=== PATIENT | female | born 1935 | race Caucasian/White ===

== ENCOUNTER → 2016-11-07 | Outpatient (CLI) | payer MEDICARE, OTHER ==
[~2016-11-07] MED LIST: *GLUCOMETE; *MAMMOGRAM; /ALEN70TA; /CIPR75TA; /GLIM2TA; /GLIM2TA OR; /PANT40TA; /PANT40TA OR; /ROPI1TA OR; /ROPI5TA OR; ACET650S OR; ACET65TA; ACET65TA OR; ALDA25TA2 OR; AMAR1TAB; AMAR1TAB OR; AMARYL PO; ASPEC325 PO; ASPI1TAB PO; ASPI81TA83 OR; ATEN100T OR; ATENOL25 PO; ATENOLOL50 PO; ATIV0.5T; AVAP150T OR; AXID PO; BABY81CH OR; BIMATOPROST; CALCCHW12 OR; CALCIUM OR; CARV12.5 PO; CHEW500C2 PO; CHOLESTYRAMINE; CIPR500T19; CIPRO OR; CLEO300C2 PO; CORE12.5 OR; CORE12.5 PO; CORE25TA OR; CORE6.25 OR; CORE6.25 PO; COZA100T OR; CYMB1CAP5 PO; DIOV320T; DOXY100C PO; DULO30CA PO; FLAG500T; FLAG500T OR; FLUTISP; FORTEO; FOSAMAX PO; FOSAMAX70 PO; FURO20TA2; FURO20TA2 OR; GLIM1TAB OR; GLIMEPIRIDE OR; GLUCOSE TEST; HCTZ25 PO; HYDROD25 PO; INSULANT SC; ISOS30TA4 OR; ISOS30TA4 PO; KEPP500T6 PO; LANCMIS; LEVA500T; LEVE750XR PO; LIPI20TA; LISI20TA5 OR; LOPERAMIDE; LOSA25TA8 PO; MAG-TAB OR; MICRO K EXTENCAPS; MULTIVITAMIN OR; NITR0.4S; NITR0.4S SL; NITR4TASL SL; NITRODUR TOPICAL; NITROSTAT4 SL; OCEA0.654; ONGL1TAB9 PO; PLAVIX75 PO; PRAVACHOL2 PO; PRILOSEC20 PO; PRINIVIL PO; PROA1AER INH; PROT1TAB2 PO; REQU1TAB16 PO; REST0.05 OU; RESTASIS; RESTASIS OU; SPIR25TA2 OR; SUCR1SS PO; TRAM50TA2 OR; TRIC145T19; TRILIPEX; TUMS500C PO; TYLE325T5 PO; VITA200016 PO; VITA200038 PO; VITAMIN D50000 UNT OR; VITMTA PO; XALA0.002 OU; XALATAN; XALATAN EYE DROPS OU; XANA0.25 OR; ZOCOR10 PO; ZOCOR20 PO; [UNRECOGNIZED DRUG - CODE] PO; [UNRECOGNIZED DRUG - OTHER] OR; [UNRECOGNIZED DRUG - OTHER] OR; [UNRECOGNIZED DRUG - OTHER] PO; onglyza PO
== END ==
LOC: M LAB 14:23
PROVIDERS: ATTEND Internal Medicine Gastroenterology
DX: R10.13 Epigastric pain (principal); I85.00 Esophageal varices without bleeding; K57.30 Diverticulosis of large intestine without perforation or abscess without bleeding; K20.9 Esophagitis, unspecified; R74.8 Abnormal levels of other serum enzymes

== ENCOUNTER → 2016-11-07 | Outpatient (CLI) | payer MEDICARE, OTHER ==
--- NOTE | 2016-11-07 11:01 | REP ---
BILATERAL MAMMOGRAM: Bilateral mammography performed in the MLO and CC projections and compared to multiple prior exams most recent of which is 11/07/2015. There is a family history of breast cancer in sister at age 71. Breast parenchyma is predominately fatty replaced. I see no suspicious mass. There do appear to be new tiny calcifications posteriorly in the upper outer quadrant of the right breast. Other focal microcalcifications are also seen medially in the right breast but these appear to possibly be associated with skin lesions. There also appear to be tiny calcifications, new, in the central posterior left breast. Other coarse benign type calcifications are present in the left breast IMPRESSION: ACR 0 incomplete. There appear to be new tiny calcifications both medially and laterally posteriorly in the right breast and centrally in the left breast. Recommend magnification views to further evaluate. ACR 0 incomplete. BI-RADS/ACR category 0 mammogram. Incomplete: Additional imaging and/or prior images are needed before a final assessment can be assigned. This mammogram was interpreted with the aid of an FDA-approved computer-aided detection system. A. Negative x-ray reports should not delay biopsy if a dominant or clinically suspicious mass is present. B. Four to eight percent of cancers are not identified by x-ray. C. Adenosis and dense breasts may obscure an underlying neoplasm. The patient states she has not had a clinical breast exam in over a year. The patient letter being requested is M0. Signed by Sukhjinder Anders MD 11/07/2016 02:26 P
== END ==
LOC: M RAD 09:41
PROVIDERS: ATTEND Internal Medicine
DX: Z12.31 Encounter for screening mammogram for malignant neoplasm of breast (principal); E65 Localized adiposity; R92.0 Mammographic microcalcification found on diagnostic imaging of breast; R92.8 Other abnormal and inconclusive findings on diagnostic imaging of breast; Z80.3 Family history of malignant neoplasm of breast; R10.13 Epigastric pain; I85.00 Esophageal varices without bleeding; K57.30 Diverticulosis of large intestine without perforation or abscess without bleeding; K20.9 Esophagitis, unspecified; R74.8 Abnormal levels of other serum enzymes
CPT/HCPCS: 36415; 83690; G0202

== ENCOUNTER → 2016-11-09 | Outpatient (CLI) | payer MEDICARE, OTHER ==
[~2016-11-09] MED LIST changes: +GASTROGRAFIN SOLUTION 30ML (Q9963) As Ordered ONE; +ISOVUE-370 76% 100ML VIAL (Q9967) As Ordered ONE
--- NOTE | 2016-11-09 18:25 | REP ---
CT ABDOMEN: HISTORY: Pain. History of diverticulosis. COMPARISON: 04/15/2015. CONTRAST UTILIZED: 100 mL Isovue-370. The lung bases are unchanged. Chronic changes are noted status quo. The liver, gallbladder, spleen, pancreas, adrenal glands, and kidneys essentially unchanged and again seem to be within normal limits. The abdominal aorta and paraaortic regions are within normal limits for the patient's age of 81 years. No free fluid or free air is seen in the abdomen. The bowel loops and their mesenteries are within normal limits. There is no evidence of an intraabdominal mass or adenopathy. There is no significant change from the prior exam. CT PELVIS: The bowel loops and their mesenteries are within normal limits. There is no evidence of a mass or adenopathy. There is no free fluid or free air. There is no significant change from the prior exam. Bone window technique throughout the examination shows no significant change in the appearance of the osseous structures. There are age related changes status quo. IMPRESSION:No evidence of acute intraabdominal or intrapelvic disease. Findings as described above. Signed by Chaparro Cummings DO 11/09/2016 07:11 P
== END ==
LOC: M RAD 14:48
PROVIDERS: ATTEND Internal Medicine Gastroenterology
DX: R10.13 Epigastric pain (principal); I85.00 Esophageal varices without bleeding; K57.30 Diverticulosis of large intestine without perforation or abscess without bleeding; K20.9 Esophagitis, unspecified; R74.8 Abnormal levels of other serum enzymes
CPT/HCPCS: 74177; Q9963; Q9967

== ENCOUNTER → 2016-11-16 | Outpatient (CLI) | payer MEDICARE, OTHER ==
[~2016-11-16] MED LIST changes: -GASTROGRAFIN SOLUTION 30ML (Q9963) As Ordered ONE; -ISOVUE-370 76% 100ML VIAL (Q9967) As Ordered ONE
--- NOTE | 2016-11-16 15:07 | REP ---
Digital diagnostic bilateral mammography with CAD: History: Screening bilateral mammography from November 07, 2016 was BIRADS category 0 incomplete due to multiple new microcalcific grouping medially and laterally in the right breast and centrally in the left breast. Diagnostic imaging recommended. Findings: Diagnostic imaging of each breast includes magnified focal spot compression CC, MLO and true MLO views and nonmagnified views. The technologist noted multiple raised lesions in both breasts. Some of these were initially marked. After I examined the patient we attempted to elvia all of these on the suspicion that these raised seborrheic keratoses contain the calcifications we were visualizing on mammography. Multiple views were obtained and the microcalcific grouping were reproduced however, it can be seen that each of these is explained by a marked raised dermal lesion and are therefore all felt to be benign. There is a marker clip as seen previously in the left breast. No other mammographic finding. Impression: BIRADS category 2 benign bilateral mammography. Numerous raised skin lesions, some of which contain the microcalcifications, which are visualized mammographically. No suspicious abnormality. Repeat screening mammography recommended one year. BI-RADS/ACR category 2 mammogram. Benign finding(s). Routine annual screening mammography (for women over age 40). This mammogram was interpreted with the aid of an FDA-approved computer-aided detection system. The patient states that she/he has not had a clinical breast exam in over a year. The patient letter being requested is M1 . Signed by Jadiel Moncada MD 11/16/2016 05:01 P
== END ==
LOC: M RAD 12:34
PROVIDERS: ATTEND Internal Medicine
DX: R92.2 Inconclusive mammogram (principal)

== ENCOUNTER → 2016-11-22 | Outpatient (REF) | payer MEDICARE, OTHER ==
[2016-11-22 16:36] LABS: BASO % 0.4 % (0.0-1.0); EOS # 0.3 K/mm3 (0.0-0.50); EOS % 3.2 % (0.0-3.0); LARGE UNSTAINED CELL # 0.3 K/mm3 (0.0-0.4); LARGE UNSTAINED CELL % 2.8 % (0.0-4.0); LYMPH # 2.5 K/mm3 (1.5-4.5); LYMPH % 28.1 % (24.0-44.0); MEAN CORPUSCULAR HEMOGLOBIN 32.6 pg (27.0-33.0); MEAN CORPUSCULAR HGB CONC 35.1 g/dl (32.0-36.5); MONO # 0.8 K/mm3 (0.0-0.8); MONO % 8.5 % (0.0-5.0); NEUTROPHILS # 5.2 K/mm3 (1.8-7.7); NEUTROPHILS % 57.1 % (36.0-66.0); PLATELET COUNT, AUTOMATED 250 k/mm3 (150-450); RED CELL DISTRIBUTION WIDTH 12.5 % (11.5-14.5)
[2016-11-22 17:09] LABS: ERYTHROCYTE SEDIMENTATION RATE 13 mm/hr (0-30)
[2016-11-25 00:06] LABS: Lyme Disease IgG/IgM Antibodie <0.91 ISR (0.00-0.90); Lyme Disease IgM Ab Quantitati <0.80 index (0.00-0.79)
== END ==
LOC: M LABDRAW1 15:47
PROVIDERS: ATTEND Orthopaedic Surgery
DX: M17.11 Unilateral primary osteoarthritis, right knee (principal); Z79.899 Other long term (current) drug therapy

== ENCOUNTER → 2016-11-23 | Outpatient (CLI) | payer MEDICARE, OTHER ==
--- NOTE | 2016-11-23 09:48 | REP ---
NUCLEAR GASTRIC EMPTYING SCAN: Following the oral administration of 0.913 mCi of technetium-99m sulfur colloid in two scrambled egg and 4 ounces of water multiple images of the upper abdomen are performed in the anterior and posterior projections for 90 minutes. The gastric activity is measured. The gastric emptying time is calculated. At the end of 90 minutes 46% of the ingested activity has emptied from the stomach. T1/2 is 111 minutes which is slightly above normal valve of 90 minutes. IMPRESSION: Slightly delayed gastric emptying. Signed by Sukhjinder Anders MD 11/23/2016 04:36 P
== END ==
LOC: M RAD 07:22
PROVIDERS: ATTEND Internal Medicine Gastroenterology
DX: R10.13 Epigastric pain (principal)
CPT/HCPCS: 78264; A9541

== ENCOUNTER 2017-03-02 17:18 | Emergency (ER) | payer MEDICARE, OTHER ==
[~2017-03-02] VITALS: Ht 160 cm; Wt 81.8 kg
[~2017-03-02 17:18] MED LIST changes: +KEPP1TAB PO; -KEPP500T6 PO; -PROA1AER INH; +PROAAER10 INH; -XALA0.002 OU; +XALA0.007 OU
[2017-03-02] MEDS ORDERED: REGL5TAB2 PO (17:33)
[2017-03-02] MEDS ORDERED: ONDANSETRON 4MG/2ML VIAL (J2405) IV ONE (18:15)
[2017-03-02] MEDS ORDERED: ASPIRIN 81 MG CHEW TABLET PO ONE (18:15)
[2017-03-02 18:17] LABS: BASO # 0.1 K/mm3 (0.0-0.2); BASO % 0.7 % (0.0-1.0); EOS # 0.4 K/mm3 (0.0-0.50); EOS % 4.5 % (0.0-3.0); LARGE UNSTAINED CELL # 0.2 K/mm3 (0.0-0.4); LARGE UNSTAINED CELL % 2.6 % (0.0-4.0); LYMPH % 35.8 % (24.0-44.0); MEAN CORPUSCULAR HEMOGLOBIN 32.2 pg (27.0-33.0); MEAN CORPUSCULAR HGB CONC 35.2 g/dl (32.0-36.5); MEAN CORPUSCULAR VOLUME 91.6 fl (80.0-96.0); MONO # 0.6 K/mm3 (0.0-0.8); MONO % 7.8 % (0.0-5.0); NEUTROPHILS # 3.8 K/mm3 (1.8-7.7); NEUTROPHILS % 48.5 % (36.0-66.0); PLATELET COUNT, AUTOMATED 226 k/mm3 (150-450); RED CELL DISTRIBUTION WIDTH 12.6 % (11.5-14.5); WHITE BLOOD COUNT 7.7 K/mm3 (4.0-10.0)
[2017-03-02 18:20] LABS: INR 0.9
[2017-03-02 18:30] LABS: ALBUMIN/GLOBULIN RATIO 1.18 (1.00-1.93); ALKALINE PHOSPHATASE 69 U/L (45-117); ALT/SGPT 22 U/L (12-78); ANION GAP 10 MEQ/L (8-16); AST/SGOT 19 U/L (15-37); BILIRUBIN,DIRECT < 0.1 MG/DL (0.0-0.2); BILIRUBIN,TOTAL 0.5 MG/DL (0.2-1.0); BLOOD UREA NITROGEN 24 MG/DL (7-18); CALCIUM LEVEL 9.1 MG/DL (8.8-10.2); CARBON DIOXIDE LEVEL 30 MEQ/L (21-32); CHLORIDE LEVEL 103 MEQ/L (98-107); CREATININE FOR GFR 0.81 MG/DL (0.55-1.02); GLOMERULAR FILTRATION RATE > 60.0 (>32); GLUCOSE, FASTING 111 MG/DL (83-110); SODIUM LEVEL 143 MEQ/L (136-145); TOTAL PROTEIN 7.4 GM/DL (6.4-8.2)
[2017-03-02] MEDS: NITROGLYCERIN 0.4 MG SUBL TABLET SL PRN ×2 (18:31→18:38)
[2017-03-02 18:38] VITALS: BP 120/57
[2017-03-02] MEDS ORDERED: ISOVUE-370 76% 100ML VIAL (Q9967) As Ordered ONE (18:45)
--- NOTE | 2017-03-02 20:10 | REPUSA ---
CLINICAL HISTORY: Chest pain. TECHNIQUE: Multiple incremental axial, coronal and oblique images are obtained from the thoracic inle t to the upper abdomen. Intravenous contrast material was administered as per pulmonary embolism prot ocol. COMMENTS: There is excellent opacification of pulmonary arterial system without evidence for pulmonary embolism . Aorta is of normal caliber without evidence for dissection or aneurysm. There is no evidence of pleural or parenchymal mass. There are no pleural effusions. There is no evid ence of hilar or mediastinal lymphadenopathy. Images of the upper abdomen demonstrate no evidence of adrenal mass. The bony structures are free of lytic or blastic lesions. Multilevel degenerative changes are seen in volving the visualized thoracolumbar spine. Scattered calcifications are seen involving the aorta and major branches compatible with atherosclero sis. There are mildly increased interstitial lungs markings noted compatible with early pulmonary fibrosis . The heart is moderately to severely enlarged. Mild pulmonary venous congestive change is present. Atelectatic changes versus scarring is seen in the right middle lobe and left lung base. IMPRESSION: 1. Early pulmonary fibrosis. 2. Moderate to severe cardiomegaly. 3. Mild pulmonary venous congestion. 4. No evidence of PE
--- NOTE | 2017-03-02 20:10 | REPUSA ---
CLINICAL HISTORY: Upper abdominal pain. TECHNIQUE: Multiple axial, coronal, sagittal CT images were obtained through the abdomen and pelvis after administration of intravenous contrast material. Oral contrast material is not administered. COMMENTS: The liver is of uniform attenuation without mass or defect. There is no intra or extrahepatic biliar y ductal dilatation. The spleen is normal. The gallbladder is within normal limits. The pancreas i s of normal contour and attenuation characteristics. There is no evidence of adrenal mass. There are bilateral extrarenal pelvises are present. There is no evidence of renal or ureteral mass. No renal or ureteral calculi are identified. There is no evidence for appendicitis. A note is made of circumferential wall thickening involving t he duodenum and loops of the jejunum compatible with enteritis. There is diffuse sigmoid diverticulo sis present without evidence of diverticulitis. No evidence for small or large bowel obstruction. T here is no evidence of abdominal ascites or lymphadenopathy. There is no evidence of intrinsic or extrinsic bladder mass. There is no pelvic ascites or lymphaden opathy. Images of the lung bases show increased interstitial lungs markings compatible with early pulmonary f ibrosis. The heart is enlarged. Small hiatal hernia is present. The patient is status post complete hysterectomy. The bony structures are free of lytic or blastic lesions. Multilevel degenerative changes are seen i nvolving the thoracolumbar spine. Scattered calcifications are seen involving the aorta and major branches compatible with atherosclero sis. IMPRESSION: 1. Circumferential wall thickening involving the duodenum and loops of the jejunum compatible with e nteritis. Consultation with GI services is recommended. Consider follow-up upper endoscopy. 2. Diffuse sigmoid diverticulosis present without evidence of diverticulitis. 3. Early pulmonary fibrosis. 4. Small hiatal hernia is present. 5. The patient is status post complete hysterectomy. 6. Atherosclerotic vascular disease.
[2017-03-02 21:03] VITALS: O2SAT 93
[2017-03-03 00:34] VITALS: BP 111/58
--- NOTE | 2017-03-03 08:04 | ECGEPIP ---
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
--- NOTE | 2017-03-03 08:12 | ECGEPIP ---
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
--- NOTE | 2017-03-03 09:38 | REP ---
AP PORTABLE CHEST: 03/02/2017. Comparison: 03/30/2016, 01/20/2016, CT chest 10/22/2006. Clinical history: Chest pain. Findings: Two views show some minor blunting of the left CP angle on the frontal view. Lateral view adequate. There is gas filled stomach bubble and splenic flexure under the left diaphragm slightly elevating it. Very large epicardial fat pad along the right heart border is as seen on previous chest x-rays and a the CT chest 10 years ago. Heart has left ventricular configuration and is enlarged. There is no vascular redistribution or pulmonary edema. The aorta is calcified at the arch. Airway is intact. There is no mediastinal contour change from the previous study in April 17, 2016. No compression deformity of the spine but there are diffuse degenerative changes present. Impression: 1. Cardiomegaly with left ventricular enlargement, some left atrial enlargement but no pulmonary edema, pleural effusion or acute infiltrate. 2. A very large right epicardial fat pad is seen on multiple previous chest x-rays and a CT chest 10 years ago, unchanged. 3. Calcified tortuous aorta without aneurysm. Airway intact. Signed by Agustin Liu MD 03/03/2017 05:52 P
--- NOTE | 2017-03-04 12:33 | ED PDOC ---
Post-Departure Follow-Up dr chadwick faxed formal report of ct abd/p for fu Leonor Dumas MD Mar 04, 2017 12:33
== END 2017-03-03 01:44 | disposition home or self-care (01) ==
LOC: M ED 17:18
DX: R07.89 Other chest pain (principal); I25.10 Atherosclerotic heart disease of native coronary artery without angina pectoris; I10 Essential (primary) hypertension; E78.5 Hyperlipidemia, unspecified; K21.9 Gastro-esophageal reflux disease without esophagitis; G25.81 Restless legs syndrome; E55.9 Vitamin D deficiency, unspecified; Z88.0 Allergy status to penicillin; Z88.2 Allergy status to sulfonamides; Z88.8 Allergy status to other drugs, medicaments and biological substances; Z91.040 Latex allergy status
CPT/HCPCS: 71020; 71275; 74177; 80048; 80076; 82550; 82553; 83690; 84484; 85025; 85610; 85730; 93005; 93041; 94760; 96374; 99285; J2405; Q9967

== ENCOUNTER 2017-04-13 22:35 | Emergency (ER) | payer MEDICARE, OTHER ==
[~2017-04-13] VITALS: Ht 160 cm; Wt 80.5 kg
[~2017-04-13 22:35] MED LIST changes: +REGL5TAB2 PO
[2017-04-13] MEDS ORDERED: ONDANSETRON 4MG/2ML VIAL (J2405) IV ONE (23:00)
[2017-04-13] MEDS ORDERED: NS 1,000 ML IV ONE (23:00)
[2017-04-13] MEDS ORDERED: KETOROLAC 30 MG/ML VIAL (J1885) IV ONE (23:00)
[2017-04-13 23:30] LABS: BASO % 0.4 % (0.0-1.0); EOS # 0.3 K/mm3 (0.0-0.50); EOS % 3.9 % (0.0-3.0); LARGE UNSTAINED CELL # 0.3 K/mm3 (0.0-0.4); LARGE UNSTAINED CELL % 3.7 % (0.0-4.0); LYMPH % 36.3 % (24.0-44.0); MEAN CORPUSCULAR HEMOGLOBIN 32.1 pg (27.0-33.0); MEAN CORPUSCULAR HGB CONC 35.5 g/dl (32.0-36.5); MEAN CORPUSCULAR VOLUME 90.3 fl (80.0-96.0); MONO # 0.6 K/mm3 (0.0-0.8); MONO % 6.6 % (0.0-5.0); NEUTROPHILS # 4.1 K/mm3 (1.8-7.7); PLATELET COUNT, AUTOMATED 200 k/mm3 (150-450); RED CELL DISTRIBUTION WIDTH 12.4 % (11.5-14.5); WHITE BLOOD COUNT 8.4 K/mm3 (4.0-10.0)
[2017-04-14 00:07] LABS: ALBUMIN 3.8 GM/DL (3.2-5.2); ALBUMIN/GLOBULIN RATIO 0.93 (1.00-1.93); ALKALINE PHOSPHATASE 63 U/L (45-117); ALT/SGPT 19 U/L (12-78); AMYLASE 61 U/L (25-115); ANION GAP 7 MEQ/L (8-16); AST/SGOT 17 U/L (15-37); BILIRUBIN,DIRECT < 0.1 MG/DL (0.0-0.2); BILIRUBIN,TOTAL 0.3 MG/DL (0.2-1.0); BLOOD UREA NITROGEN 17 MG/DL (7-18); CALCIUM LEVEL 8.8 MG/DL (8.8-10.2); CARBON DIOXIDE LEVEL 29 MEQ/L (21-32); CHLORIDE LEVEL 108 MEQ/L (98-107); CREATININE FOR GFR 0.86 MG/DL (0.55-1.02); GLOMERULAR FILTRATION RATE > 60.0 (>32); GLUCOSE, FASTING 141 MG/DL (83-110); POTASSIUM SERUM 3.9 MEQ/L (3.5-5.1); SODIUM LEVEL 144 MEQ/L (136-145); TOTAL PROTEIN 7.9 GM/DL (6.4-8.2)
[2017-04-14] MEDS ORDERED: ISOVUE-370 76% 100ML VIAL (Q9967) As Ordered ONE (00:16)
--- NOTE | 2017-04-14 01:20 | REPUSA ---
CLINICAL HISTORY: Abdominal pain. TECHNIQUE: Multiple axial, sagittal and coronal CT images were obtained through the abdomen and pelvi s after administration of intravenous contrast material. COMMENTS: Comparison to the prior exam performed on 03/02/2017. Colonic diverticulosis. Diffuse thickening of the wall of the sigmoid and descending colon with mild surrounding fat strandin g. The liver is mildly enlarged without mass or defect. There is no intra or extrahepatic biliary ductal dilatation. The spleen is normal. The gallbladder is diffusely thickened. This has mildly increased. The pancreas is of normal contour and attenuation characteristics. There is no evidence of adrenal m ass. Both kidneys demonstrate prompt and equal nephrograms. The kidneys are normal in size, shape and conf iguration. There is no evidence of renal or ureteral mass. No renal or ureteral calculi are identifie d. There is no hydroureter or hydronephrosis. No evidence for appendicitis. No evidence for small or large bowel obstruction. There is no evidence of abdominal ascites or lymphadenopathy. There is no evidence of intrinsic or extrinsic bladder mass. There is no pelvic ascites or lymphadeno prabhakar. Prior hysterectomy. Thickened bladder. Images of the lung bases show no evidence of pleural or parenchymal mass. There are no pleural effusi ons. Bilateral basilar atelectatic pulmonary changes are unchanged. The bony structures are free of lytic or blastic lesions. Multilevel degenerative changes are seen in volving the thoracolumbar spine. Scattered calcifications are seen involving the aorta and major bran ches compatible with atherosclerosis. IMPRESSION: Diffuse thickening of the sigmoid and descending colon. Findings are suggestive of a colitis/divertic ulitis. No perforation or abscess formation. No evidence of pneumatosis coli. Unchanged mild hepatomegaly with fat infiltration. Interval mild increase in diffuse thickening of the wall of the gallbladder. Hysterectomy. Thickened bladder. Thank you for your kind referral of this patient.
[2017-04-14] MEDS ORDERED: CIPR-249 PO (01:28)
[2017-04-14] MEDS ORDERED: FLAG500T PO (01:28)
[2017-04-14] MEDS ORDERED: ZOFR4TAB3 PO (01:28)
[2017-04-14] MEDS ORDERED: CIPROFLOXACIN 500 MG TAB PO ONE (01:30)
[2017-04-14] MEDS ORDERED: metroNIDAZOLE (FLAGYL) 500 MG TAB PO ONE (01:30)
[2017-04-14 01:44] VITALS: BP 132/74
--- NOTE | 2017-04-14 08:31 | ED PDOC ---
Post-Departure Follow-Up radiology report faxed to Alka Velázquez MD Apr 14, 2017 08:31
== END 2017-04-14 01:57 | disposition home or self-care (01) ==
LOC: M ED 22:35
DX: K57.32 Diverticulitis of large intestine without perforation or abscess without bleeding (principal); I25.10 Atherosclerotic heart disease of native coronary artery without angina pectoris; I25.2 Old myocardial infarction; I10 Essential (primary) hypertension; E11.9 Type 2 diabetes mellitus without complications
CPT/HCPCS: 74177; 80048; 80076; 81001; 82150; 83690; 85025; 96374; 96375; 99283; J1885; J2405; Q9967

== ENCOUNTER 2017-04-17 12:39 | Emergency (ER) | payer MEDICARE, OTHER ==
[~2017-04-17] VITALS: Ht 160 cm; Wt 81.4 kg
[~2017-04-17 12:39] MED LIST changes: +CIPR-249 PO; +FLAG500T PO; +ZOFR4TAB3 PO
[2017-04-17] MEDS ORDERED: ONDANSETRON 4MG/2ML VIAL (J2405) IV ONE (13:45)
[2017-04-17] MEDS ORDERED: ACETAMINOPHEN TAB 650MG DOSE (2X325MG) PO ONE (13:45)
[2017-04-17 14:21] LABS: BASO % 0.1 % (0.0-1.0); EOS # 0.3 K/mm3 (0.0-0.50); EOS % 3.1 % (0.0-3.0); LARGE UNSTAINED CELL # 0.2 K/mm3 (0.0-0.4); LYMPH # 1.4 K/mm3 (1.5-4.5); LYMPH % 12.6 % (24.0-44.0); MEAN CORPUSCULAR HEMOGLOBIN 32.8 pg (27.0-33.0); MEAN CORPUSCULAR HGB CONC 36.4 g/dl (32.0-36.5); MEAN CORPUSCULAR VOLUME 90.2 fl (80.0-96.0); MONO # 0.6 K/mm3 (0.0-0.8); MONO % 5.1 % (0.0-5.0); NEUTROPHILS # 8.5 K/mm3 (1.8-7.7); NEUTROPHILS % 77.1 % (36.0-66.0); PLATELET COUNT, AUTOMATED 207 k/mm3 (150-450); RED CELL DISTRIBUTION WIDTH 12.2 % (11.5-14.5)
[2017-04-17] MEDS: IPRATROPIUM 0.5MG/ALBUTEROL 2.5MG INH SOL UD 3ML (DUONEB)(J7620) NEB PRN ×2 (14:23→14:31)
[2017-04-17] MEDS: NS 1,000 ML IV SCH ×2 (14:25→14:28)
[2017-04-17 14:26] LABS: INR 1.04
[2017-04-17 14:51] LABS: ANION GAP 5 MEQ/L (8-16); BLOOD UREA NITROGEN 11 MG/DL (7-18); CALCIUM LEVEL 9.4 MG/DL (8.8-10.2); CARBON DIOXIDE LEVEL 29 MEQ/L (21-32); CHLORIDE LEVEL 106 MEQ/L (98-107); CREATININE FOR GFR 0.79 MG/DL (0.55-1.02); GLOMERULAR FILTRATION RATE > 60.0 (>32); GLUCOSE, FASTING 128 MG/DL (83-110); POTASSIUM SERUM 3.7 MEQ/L (3.5-5.1); SODIUM LEVEL 140 MEQ/L (136-145)
[2017-04-17] MEDS ORDERED: ISOVUE-370 76% 100ML VIAL (Q9967) As Ordered ONE (14:59)
--- NOTE | 2017-04-17 15:36 | REP ---
CHEST, TWO VIEWS: Two views of the chest are performed and compared to prior study of 03/02/2017. Large right sided cardiophrenic fat pad is again noted unchanged. Heart is normal in size. There is calcified tortuous aorta. There is mild bibasilar fibroatelectatic change without acute infiltrate. There is mild elevation of the left hemidiaphragm. There are degenerative changes of the spine. IMPRESSION: Stable chronic findings without acute infiltrate. Signed by Sukhjinder Anders MD 04/18/2017 05:34 P
--- NOTE | 2017-04-17 15:54 | REP ---
CT chest with IV contrast: History: Cough. Comparison: CT study of March 02, 2017. CT contrast dose: 100 ml of intravenous Isovue 370. CT findings: Digital wringer and setter view and axial CT images demonstrate a large epicardial fat pad in the right anterior cardiophrenic angle, which is unchanged from comparison studies. No pleural effusion is seen. There is no CT evidence to suggest pneumonia. Minimal subsegmental fibroatelectatic changes are seen in the bases. No pericardial effusion is seen. No hilar or mediastinal mass or adenopathy is observed. No vascular abnormality is observed other than some mild vascular calcification. No adrenal lesion is seen. The visualized upper abdominal structures are unremarkable. No extrathoracic mass or adenopathy is observed. No bony destructive lesion is seen. Impression: No CT evidence of pneumonia. Large epicardial fat pad again noted. Otherwise no acute disease. Signed by Jadiel Moncada MD 04/17/2017 06:37 P
--- NOTE | 2017-04-17 15:58 | REP ---
CT abdomen and pelvis with IV but without oral contrast: History: Abdominal pain. Comparison study: April 14, 2017. CT contrast dose: 100 ml of Isovue [address] findings: Preliminary digital professor of journalism radiograph shows nonspecific small bowel air filled loops similar to the prior study. The liver and the spleen are normal in size and homogeneous in texture. The gallbladder is somewhat distended measuring 10.8 cm in greatest dimension. No stone is seen by CT. Gallbladder wall is not visibly thickened. No pancreatic abnormalities observed. No adrenal abnormality is seen on either side. The kidneys enhance symmetrically and are morphologically intact. Atherosclerotic calcification is seen in the abdominal aorta, which is normal in caliber. No retroperitoneal mass or adenopathy is observed. No pelvic mass or adenopathy is seen. There is scattered diverticulosis in the sigmoid colon. No CT evidence of diverticulitis. The mild mural thickening pattern seen in the left colon on the previous study is not seen today. Urinary bladder is intact. Uterus is surgically absent. The appendix is surgically absent. No bony destructive lesion is seen. Impression: Mild left colonic diverticulosis. No CT evidence of diverticulitis. Mild ileus pattern again noted in the bowel gas. No free air seen. No other acute abnormality. Celiac axis, superior mesenteric artery, and inferior mesenteric arteries are patent. Signed by Jadiel Moncada MD 04/17/2017 06:38 P
[2017-04-17 16:12] LABS: ALBUMIN 3.7 GM/DL (3.2-5.2); ALBUMIN/GLOBULIN RATIO 0.97 (1.00-1.93); BILIRUBIN,TOTAL 0.6 MG/DL (0.2-1.0); FREE T4 0.95 NG/DL (0.76-1.46); TOTAL PROTEIN 7.5 GM/DL (6.4-8.2)
[2017-04-17 16:20] LABS: ALKALINE PHOSPHATASE 54 U/L (45-117); ALT/SGPT 23 U/L (12-78); AST/SGOT 24 U/L (15-37); BILIRUBIN,DIRECT 0.1 MG/DL (0.0-0.2)
[2017-04-17] MEDS ORDERED: MIRALAX *UNIT DOSE* 17GM PACKET PO ONE (17:00)
[2017-04-17] MEDS ORDERED: NORCO, ANEXSIA 5/325MG TABLET (HYDROcodone/ACETAMINOPHEN) PO ONE (17:30)
[2017-04-17] MEDS ORDERED: LEVA1TAB2 PO ×2 (17:37→18:04)
[2017-04-17] MEDS ORDERED: MIRA33504 PO ×2 (17:37→18:04)
[2017-04-17 18:22] VITALS: BP 170/80
--- NOTE | 2017-04-18 08:25 | ECGEPIP ---
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
[2017-04-18] MEDS ORDERED: MIRALAX *UNIT DOSE* 17GM PACKET PO SCH (09:00)
== END 2017-04-17 18:37 | disposition home or self-care (01) ==
LOC: M ED 12:39
DX: J06.9 Acute upper respiratory infection, unspecified (principal); K56.7 Ileus, unspecified
CPT/HCPCS: 71020; 71260; 74177; 80048; 80076; 82550; 82553; 83605; 83880; 84439; 84443; 84484; 85025; 85610; 86140; 87040; 93005; 93041; 94640; 94760; 96374; 99285; J2405; Q9967

== ENCOUNTER → 2017-06-25 | Outpatient (CLI) | payer MEDICARE, OTHER ==
[~2017-06-25] MED LIST changes: +LEVA1TAB2 PO; +MIRA33504 PO
[2017-06-25 12:07] LABS: MEAN CORPUSCULAR HEMOGLOBIN 31.8 pg (27.0-33.0); MEAN CORPUSCULAR HGB CONC 33.6 g/dl (32.0-36.5); MEAN CORPUSCULAR VOLUME 94.7 fl (80.0-96.0); PLATELET COUNT, AUTOMATED 223 10^3/uL (150-450); RED CELL DISTRIBUTION WIDTH 12.4 % (11.5-14.5); WHITE BLOOD COUNT 6.6 10^3/uL (4.0-10.0)
== END ==
LOC: M LAB 11:17
PROVIDERS: ATTEND Internal Medicine Gastroenterology
DX: K92.1 Melena (principal)

== ENCOUNTER 2017-11-23 11:31 | Emergency (ER) | payer MEDICARE, OTHER ==
[2017-11-23] MEDS ORDERED: FLUORESCEIN OPHTH 1 MG STRIP As Ordered (12:33)
[2017-11-23] MEDS: FLUORESCEIN OPHTH 1 MG STRIP OD (12:34)
== END 2017-11-23 13:21 | disposition home or self-care (01) ==
LOC: M ED 11:31
DX: S05.01XA Injury of conjunctiva and corneal abrasion without foreign body, right eye, initial encounter (principal); X58.XXXA Exposure to other specified factors, initial encounter; Y92.89 Other specified places as the place of occurrence of the external cause; I50.9 Heart failure, unspecified; E11.9 Type 2 diabetes mellitus without complications; I11.0 Hypertensive heart disease with heart failure; G47.33 Obstructive sleep apnea (adult) (pediatric); H40.9 Unspecified glaucoma; Z98.41 Cataract extraction status, right eye; Z88.8 Allergy status to other drugs, medicaments and biological substances; Z88.0 Allergy status to penicillin; Z88.2 Allergy status to sulfonamides; Z91.040 Latex allergy status; Z79.899 Other long term (current) drug therapy; Z79.82 Long term (current) use of aspirin; Z79.4 Long term (current) use of insulin
CPT/HCPCS: 99283

== ENCOUNTER 2018-02-08 16:48 | Inpatient (IN) | payer MEDICARE, OTHER ==
[2018-02-08] MEDS: HumaLOG INSULIN (NovoLOG) PER UNIT SC ×4 (07:30→23:22)
[2018-02-08] MEDS: NS 500 ML IV (17:30)
[2018-02-08 17:36] LABS: BASO % 0.4 % (0.0-1.0); EOS # 0.3 10^3/uL (0.0-0.50); EOS % 3.4 % (0.0-3.0); HEMATOCRIT 41.3 % (36.0-47.0); HEMOGLOBIN 14.2 g/dl (12.0-15.5); IMMATURE GRANULOCYTE % 0.5 % (0-3.0); LYMPH # 1.8 10^3/uL (1.5-4.5); LYMPH % 18.2 % (24.0-44.0); MEAN CORPUSCULAR HEMOGLOBIN 31.8 pg (27.0-33.0); MEAN CORPUSCULAR HGB CONC 34.4 g/dl (32.0-36.5); MEAN CORPUSCULAR VOLUME 92.6 fl (80.0-96.0); MONO # 1.3 10^3/uL (0.0-0.8); MONO % 13.3 % (0.0-5.0); NEUTROPHILS # 6.4 10^3/uL (1.8-7.7); NEUTROPHILS % 64.2 % (36.0-66.0); PLATELET COUNT, AUTOMATED 195 10^3/uL (150-450); RED BLOOD COUNT 4.46 10^6/uL (4.00-5.40); RED CELL DISTRIBUTION WIDTH 12.6 % (11.5-14.5)
[2018-02-08] MEDS: ONDANSETRON 4MG/2ML VIAL (J2405) IV (17:47)
[2018-02-08] MEDS: MORPHINE 2 MG/ML 1ML SYRINGE (J2270) IV ×2 (17:47→19:17)
[2018-02-08] MEDS: ACETAMINOPHEN TAB 650MG DOSE (2X325MG) PO (17:47)
[2018-02-08 18:01] LABS: LACTIC ACID SEPSIS PROTOCOL 1.1 MMOL/L (0.4-2.0)
[2018-02-08 18:03] LABS: ALBUMIN 3.9 GM/DL (3.2-5.2); ALBUMIN/GLOBULIN RATIO 1.03 (1.00-1.93); ALKALINE PHOSPHATASE 65 U/L (45-117); ALT/SGPT 27 U/L (12-78); ANION GAP 7 MEQ/L (8-16); AST/SGOT 19 U/L (7-37); BILIRUBIN,DIRECT 0.2 MG/DL (0.0-0.2); BILIRUBIN,TOTAL 0.8 MG/DL (0.2-1.0); BLOOD UREA NITROGEN 16 MG/DL (7-18); CALCIUM LEVEL 8.9 MG/DL (8.8-10.2); CARBON DIOXIDE LEVEL 30 MEQ/L (21-32); CHLORIDE LEVEL 105 MEQ/L (98-107); CPK CREATINE PHOSPHOKINASE 72 U/L (26-192); CREATININE FOR GFR 0.73 MG/DL (0.55-1.30); GLOMERULAR FILTRATION RATE > 60.0 (>32); GLUCOSE, FASTING 128 MG/DL (70-100); POTASSIUM SERUM 3.8 MEQ/L (3.5-5.1); SODIUM LEVEL 142 MEQ/L (136-145); TOTAL PROTEIN 7.7 GM/DL (6.4-8.2); TROPONIN I < 0.02 NG/ML (< 0.10)
[2018-02-08 18:04] LABS: CK-MB VALUE MASS < 1.0 NG/ML (<3.6); MB/CK RELATIVE INDEX 1.38 (< OR =4); NT-PRO BNP 597 PG/ML (<450)
[2018-02-08 18:48] LABS: KETONE, URINE AUTO RFX TRACE mg/dL (NEGATIVE); MUCUS, URINE RFX SMALL (NEGATIVE); NITRITE, URINE AUTO RFX NEGATIVE (NEGATIVE); RBC, URINE AUTO RFX 2 /HPF (0-3); SQUAM EPITHELIAL CELL UR AURFX 1 /HPF (0-6); WBC, URINE AUTO RFX 7 /HPF (0-3)
[2018-02-08 20:01] LABS: LEUKOCYTE ESTERASE UR AUTO RFX 1+ (NEGATIVE)
[2018-02-08] MEDS: LevoFLOXacin IV 750 MG in APPROPRIATE DILUENT 1 EA IV (20:12)
[2018-02-08] MEDS ORDERED: GLUCAGON FOR INJ 1 MG VIAL (J1610) SC ×2 (22:30→23:15)
[2018-02-08] MEDS ORDERED: GLUCOSE 4 GM CHEW TABLET PO ×2 (22:30→23:15)
[2018-02-08] MEDS ORDERED: NITROGLYCERIN 0.4 MG SUBL TABLET SL (22:30)
[2018-02-08] MEDS ORDERED: ALBUTEROL SULFATE 2.5 MG/0.5 ML INH NEB SOLN NEB (22:30)
[2018-02-08] MEDS ORDERED: CALCIUM CARBONATE 500 MG CHEW U/D PO (22:30)
[2018-02-08] MEDS ORDERED: DEXTROSE 50% 50 ML SYRINGE IV ×2 (22:30→23:15)
[2018-02-08 23:03] LABS: BEDSIDE GLUCOSE 143 MG/DL (83-110)
[2018-02-08] MEDS: levETIRAcetam 250MG TABLET (KEPPRA) PO (23:20)
[2018-02-08] MEDS: GABAPENTIN 100 MG CAP PO (23:20)
[2018-02-08] MEDS: FAMOTIDINE 20 MG TAB PO (23:20)
[2018-02-08] MEDS: NS 750 ML IV (23:21)
[2018-02-08] MEDS: CARVedilol 6.25 MG TAB PO (23:21)
[2018-02-08] MEDS: HEPARIN SOD (PORCINE) 5000 UNITS/ML VIAL SC (23:21)
[2018-02-09] MEDS: LEVEMIR (INSULIN DETEMIR) 1 UNITS/0.01ML SC ×2 (00:08→21:49)
[2018-02-09] MEDS: LATANOPROST 0.005% OPHTH SOLN 2.5 ML OU ×2 (00:08→20:07)
[2018-02-09] MEDS: BRIMONIDINE 0.1% OPHTH SOLN 5 ML OU ×3 (00:09→20:07)
[2018-02-09] MEDS: HEPARIN SOD (PORCINE) 5000 UNITS/ML VIAL SC ×3 (05:49→21:49)
[2018-02-09 06:27] LABS: HEMATOCRIT 40.1 % (36.0-47.0); HEMOGLOBIN 13.1 g/dl (12.0-15.5); MEAN CORPUSCULAR HEMOGLOBIN 31.6 pg (27.0-33.0); MEAN CORPUSCULAR HGB CONC 32.7 g/dl (32.0-36.5); MEAN CORPUSCULAR VOLUME 96.6 fl (80.0-96.0); PLATELET COUNT, AUTOMATED 168 10^3/uL (150-450); RED BLOOD COUNT 4.15 10^6/uL (4.00-5.40); RED CELL DISTRIBUTION WIDTH 12.9 % (11.5-14.5); WHITE BLOOD COUNT 8.3 10^3/uL (4.0-10.0)
[2018-02-09 06:46] LABS: ANION GAP 8 MEQ/L (8-16); BLOOD UREA NITROGEN 16 MG/DL (7-18); CALCIUM LEVEL 8.4 MG/DL (8.8-10.2); CARBON DIOXIDE LEVEL 29 MEQ/L (21-32); CHLORIDE LEVEL 107 MEQ/L (98-107); CREATININE FOR GFR 0.77 MG/DL (0.55-1.30); GLOMERULAR FILTRATION RATE > 60.0 (>32); GLUCOSE, FASTING 119 MG/DL (70-100); POTASSIUM SERUM 3.9 MEQ/L (3.5-5.1); SODIUM LEVEL 144 MEQ/L (136-145)
[2018-02-09] MEDS: MULTIVITAMINS/MINERALS THERAP 1 TAB PO (08:46)
[2018-02-09] MEDS: FAMOTIDINE 20 MG TAB PO ×2 (08:47→20:06)
[2018-02-09] MEDS: ASPIRIN 81 MG ENTERIC TAB PO (08:47)
[2018-02-09] MEDS: levETIRAcetam 250MG TABLET (KEPPRA) PO ×2 (08:47→20:07)
[2018-02-09] MEDS: ASCORBIC ACID 500 MG TAB PO (08:47)
[2018-02-09] MEDS: OMEPRAZOLE 20 MG CAP PO (08:47)
[2018-02-09] MEDS: VITAMIN D 1,000 INTERNATIONAL UNITS TABLET PO (08:47)
[2018-02-09] MEDS: ISOSORBIDE MON. (IMDUR) 30 MG XR TAB PO (08:47)
[2018-02-09] MEDS: CARVedilol 12.5 MG TAB PO (08:47)
[2018-02-09] MEDS: HumaLOG INSULIN (NovoLOG) PER UNIT SC ×4 (08:48→21:00)
[2018-02-09] MEDS: ACETAMINOPHEN TAB 650MG DOSE (2X325MG) PO (08:48)
[2018-02-09] MEDS: NS 750 ML IV (09:13)
[2018-02-09 12:15] LABS: BEDSIDE GLUCOSE 149 MG/DL (83-110)
[2018-02-09 17:24] LABS: BEDSIDE GLUCOSE 165 MG/DL (83-110)
[2018-02-09] MEDS: CARVedilol 6.25 MG TAB PO (20:06)
[2018-02-09] MEDS: GABAPENTIN 100 MG CAP PO (20:06)
[2018-02-09 20:22] LABS: BEDSIDE GLUCOSE 147 MG/DL (83-110)
[2018-02-10] MEDS: HEPARIN SOD (PORCINE) 5000 UNITS/ML VIAL SC ×3 (06:31→21:42)
[2018-02-10 07:05] LABS: HEMATOCRIT 34.3 % (36.0-47.0); HEMOGLOBIN 11.5 g/dl (12.0-15.5); MEAN CORPUSCULAR HEMOGLOBIN 31.5 pg (27.0-33.0); MEAN CORPUSCULAR HGB CONC 33.5 g/dl (32.0-36.5); PLATELET COUNT, AUTOMATED 156 10^3/uL (150-450); RED BLOOD COUNT 3.65 10^6/uL (4.00-5.40); RED CELL DISTRIBUTION WIDTH 12.7 % (11.5-14.5); WHITE BLOOD COUNT 6.3 10^3/uL (4.0-10.0)
[2018-02-10 07:23] LABS: ANION GAP 5 MEQ/L (8-16); BLOOD UREA NITROGEN 21 MG/DL (7-18); CALCIUM LEVEL 8.4 MG/DL (8.8-10.2); CARBON DIOXIDE LEVEL 31 MEQ/L (21-32); CHLORIDE LEVEL 107 MEQ/L (98-107); CREATININE FOR GFR 0.82 MG/DL (0.55-1.30); GLOMERULAR FILTRATION RATE > 60.0 (>32); GLUCOSE, FASTING 149 MG/DL (70-100); POTASSIUM SERUM 3.9 MEQ/L (3.5-5.1); SODIUM LEVEL 143 MEQ/L (136-145)
[2018-02-10] MEDS: MULTIVITAMINS/MINERALS THERAP 1 TAB PO (08:01)
[2018-02-10] MEDS: HumaLOG INSULIN (NovoLOG) PER UNIT SC ×4 (08:01→21:00)
[2018-02-10] MEDS: ISOSORBIDE MON. (IMDUR) 30 MG XR TAB PO (08:05)
[2018-02-10] MEDS: levETIRAcetam 250MG TABLET (KEPPRA) PO ×2 (08:06→21:42)
[2018-02-10] MEDS: FAMOTIDINE 20 MG TAB PO ×2 (08:06→21:42)
[2018-02-10] MEDS: BRIMONIDINE 0.1% OPHTH SOLN 5 ML OU ×2 (08:06→21:43)
[2018-02-10] MEDS: CARVedilol 12.5 MG TAB PO (08:06)
[2018-02-10] MEDS: ASPIRIN 81 MG ENTERIC TAB PO (08:06)
[2018-02-10] MEDS: OMEPRAZOLE 20 MG CAP PO (08:06)
[2018-02-10] MEDS: ASCORBIC ACID 500 MG TAB PO (08:06)
[2018-02-10] MEDS: VITAMIN D 1,000 INTERNATIONAL UNITS TABLET PO (08:06)
[2018-02-10] MEDS ORDERED: IPRATROPIUM 0.5MG/ALBUTEROL 2.5MG INH SOL UD 3ML (DUONEB)(J7620) NEB (09:30)
[2018-02-10] MEDS: predniSONE 10 MG TAB PO (09:55)
[2018-02-10] MEDS: guaiFENesin ER 600 MG TAB PO ×2 (09:56→21:42)
[2018-02-10] MEDS: IPRATROPIUM 0.5MG/ALBUTEROL 2.5MG INH SOL UD 3ML (DUONEB)(J7620) NEB ×3 (10:43→21:44)
[2018-02-10 12:06] LABS: BEDSIDE GLUCOSE 115 MG/DL (83-110)
[2018-02-10] MEDS: guaiFENesin DM LIQ 10ML UD PO (15:28)
[2018-02-10 17:02] LABS: BEDSIDE GLUCOSE 231 MG/DL (83-110)
[2018-02-10 21:00] LABS: BEDSIDE GLUCOSE 215 MG/DL (83-110)
[2018-02-10] MEDS: GABAPENTIN 100 MG CAP PO (21:42)
[2018-02-10] MEDS: methylPREDNISolone INJ 40 MG/1 ML VIAL (J2920) IV (21:42)
[2018-02-10] MEDS: LATANOPROST 0.005% OPHTH SOLN 2.5 ML OU (21:43)
[2018-02-10] MEDS: LEVEMIR (INSULIN DETEMIR) 1 UNITS/0.01ML SC (21:43)
[2018-02-10] MEDS: CARVedilol 6.25 MG TAB PO (21:43)
[2018-02-11] MEDS: IPRATROPIUM 0.5MG/ALBUTEROL 2.5MG INH SOL UD 3ML (DUONEB)(J7620) NEB ×6 (04:00→19:42)
[2018-02-11] MEDS: HEPARIN SOD (PORCINE) 5000 UNITS/ML VIAL SC ×3 (06:15→21:38)
[2018-02-11 07:17] LABS: HEMATOCRIT 35.9 % (36.0-47.0); HEMOGLOBIN 12.5 g/dl (12.0-15.5); MEAN CORPUSCULAR HEMOGLOBIN 32.1 pg (27.0-33.0); MEAN CORPUSCULAR HGB CONC 34.8 g/dl (32.0-36.5); MEAN CORPUSCULAR VOLUME 92.3 fl (80.0-96.0); PLATELET COUNT, AUTOMATED 170 10^3/uL (150-450); RED BLOOD COUNT 3.89 10^6/uL (4.00-5.40); RED CELL DISTRIBUTION WIDTH 12.4 % (11.5-14.5); WHITE BLOOD COUNT 7.2 10^3/uL (4.0-10.0)
[2018-02-11 07:31] LABS: ANION GAP 9 MEQ/L (8-16); BLOOD UREA NITROGEN 20 MG/DL (7-18); CALCIUM LEVEL 8.9 MG/DL (8.8-10.2); CARBON DIOXIDE LEVEL 28 MEQ/L (21-32); CHLORIDE LEVEL 107 MEQ/L (98-107); GLOMERULAR FILTRATION RATE > 60.0 (>32); GLUCOSE, FASTING 225 MG/DL (70-100); SODIUM LEVEL 144 MEQ/L (136-145)
[2018-02-11] MEDS: methylPREDNISolone INJ 40 MG/1 ML VIAL (J2920) IV (08:34)
[2018-02-11] MEDS: MULTIVITAMINS/MINERALS THERAP 1 TAB PO (08:34)
[2018-02-11] MEDS: guaiFENesin ER 600 MG TAB PO ×2 (08:34→21:38)
[2018-02-11] MEDS: VITAMIN D 1,000 INTERNATIONAL UNITS TABLET PO (08:34)
[2018-02-11] MEDS: ASPIRIN 81 MG ENTERIC TAB PO (08:34)
[2018-02-11] MEDS: levETIRAcetam 250MG TABLET (KEPPRA) PO ×2 (08:34→21:38)
[2018-02-11] MEDS: OMEPRAZOLE 20 MG CAP PO (08:35)
[2018-02-11] MEDS: ISOSORBIDE MON. (IMDUR) 30 MG XR TAB PO (08:35)
[2018-02-11] MEDS: FAMOTIDINE 20 MG TAB PO ×2 (08:35→21:39)
[2018-02-11] MEDS: ASCORBIC ACID 500 MG TAB PO (08:35)
[2018-02-11] MEDS: CARVedilol 12.5 MG TAB PO (08:35)
[2018-02-11] MEDS: HumaLOG INSULIN (NovoLOG) PER UNIT SC ×4 (08:36→21:39)
[2018-02-11] MEDS: BRIMONIDINE 0.1% OPHTH SOLN 5 ML OU ×2 (08:36→21:38)
[2018-02-11] MEDS ORDERED: predniSONE 10 MG TAB PO (09:00)
[2018-02-11 11:37] LABS: BEDSIDE GLUCOSE 302 MG/DL (83-110)
[2018-02-11] MEDS: predniSONE 20 MG TAB PO ×2 (15:06→15:11)
[2018-02-11 17:05] LABS: BEDSIDE GLUCOSE 287 MG/DL (83-110)
[2018-02-11 20:08] LABS: BEDSIDE GLUCOSE 364 MG/DL (83-110)
[2018-02-11] MEDS: GABAPENTIN 100 MG CAP PO (21:38)
[2018-02-11] MEDS: LATANOPROST 0.005% OPHTH SOLN 2.5 ML OU (21:38)
[2018-02-11] MEDS: LEVEMIR (INSULIN DETEMIR) 1 UNITS/0.01ML SC (21:40)
[2018-02-11] MEDS: CARVedilol 6.25 MG TAB PO (21:41)
[2018-02-11] MEDS: guaiFENesin DM LIQ 10ML UD PO (21:47)
[2018-02-11] MEDS: ACETAMINOPHEN TAB 650MG DOSE (2X325MG) PO (21:47)
[2018-02-12] MEDS: IPRATROPIUM 0.5MG/ALBUTEROL 2.5MG INH SOL UD 3ML (DUONEB)(J7620) NEB ×5 (04:00→20:57)
[2018-02-12] MEDS: HEPARIN SOD (PORCINE) 5000 UNITS/ML VIAL SC ×3 (05:43→22:35)
[2018-02-12 06:33] LABS: HEMATOCRIT 35.1 % (36.0-47.0); HEMOGLOBIN 12.3 g/dl (12.0-15.5); MEAN CORPUSCULAR HEMOGLOBIN 31.9 pg (27.0-33.0); MEAN CORPUSCULAR VOLUME 91.2 fl (80.0-96.0); PLATELET COUNT, AUTOMATED 191 10^3/uL (150-450); RED BLOOD COUNT 3.85 10^6/uL (4.00-5.40); RED CELL DISTRIBUTION WIDTH 12.3 % (11.5-14.5); WHITE BLOOD COUNT 12.3 10^3/uL (4.0-10.0)
[2018-02-12 06:54] LABS: ANION GAP 8 MEQ/L (8-16); BLOOD UREA NITROGEN 25 MG/DL (7-18); CALCIUM LEVEL 8.8 MG/DL (8.8-10.2); CARBON DIOXIDE LEVEL 27 MEQ/L (21-32); CHLORIDE LEVEL 108 MEQ/L (98-107); CREATININE FOR GFR 0.75 MG/DL (0.55-1.30); GLOMERULAR FILTRATION RATE > 60.0 (>32); GLUCOSE, FASTING 231 MG/DL (70-100); POTASSIUM SERUM 4.1 MEQ/L (3.5-5.1); SODIUM LEVEL 143 MEQ/L (136-145)
[2018-02-12] MEDS: HumaLOG INSULIN (NovoLOG) PER UNIT SC ×4 (08:41→20:43)
[2018-02-12] MEDS: MULTIVITAMINS/MINERALS THERAP 1 TAB PO (08:42)
[2018-02-12] MEDS: predniSONE 20 MG TAB PO (08:42)
[2018-02-12] MEDS: ASCORBIC ACID 500 MG TAB PO (08:42)
[2018-02-12] MEDS: guaiFENesin ER 600 MG TAB PO ×2 (08:42→20:41)
[2018-02-12] MEDS: OMEPRAZOLE 20 MG CAP PO (08:42)
[2018-02-12] MEDS: levETIRAcetam 250MG TABLET (KEPPRA) PO ×2 (08:42→20:41)
[2018-02-12] MEDS: VITAMIN D 1,000 INTERNATIONAL UNITS TABLET PO (08:42)
[2018-02-12] MEDS: FAMOTIDINE 20 MG TAB PO ×2 (08:43→20:41)
[2018-02-12] MEDS: ASPIRIN 81 MG ENTERIC TAB PO (08:43)
[2018-02-12] MEDS: CARVedilol 12.5 MG TAB PO (08:43)
[2018-02-12] MEDS: ISOSORBIDE MON. (IMDUR) 30 MG XR TAB PO (08:43)
[2018-02-12] MEDS: BRIMONIDINE 0.1% OPHTH SOLN 5 ML OU ×2 (08:49→20:43)
[2018-02-12 12:21] LABS: BEDSIDE GLUCOSE 274 MG/DL (83-110)
[2018-02-12 20:00] LABS: BEDSIDE GLUCOSE 332 MG/DL (83-110)
[2018-02-12] MEDS: CARVedilol 6.25 MG TAB PO (20:41)
[2018-02-12] MEDS: GABAPENTIN 100 MG CAP PO (20:42)
[2018-02-12] MEDS: LEVEMIR (INSULIN DETEMIR) 1 UNITS/0.01ML SC (20:43)
[2018-02-12] MEDS: LATANOPROST 0.005% OPHTH SOLN 2.5 ML OU (20:43)
[2018-02-12] MEDS: ACETAMINOPHEN TAB 650MG DOSE (2X325MG) PO (20:51)
[2018-02-13] MEDS: guaiFENesin DM LIQ 10ML UD PO (01:02)
[2018-02-13 06:26] LABS: HEMATOCRIT 36.1 % (36.0-47.0); HEMOGLOBIN 12.5 g/dl (12.0-15.5); MEAN CORPUSCULAR HEMOGLOBIN 31.4 pg (27.0-33.0); MEAN CORPUSCULAR HGB CONC 34.6 g/dl (32.0-36.5); MEAN CORPUSCULAR VOLUME 90.7 fl (80.0-96.0); PLATELET COUNT, AUTOMATED 199 10^3/uL (150-450); RED BLOOD COUNT 3.98 10^6/uL (4.00-5.40); RED CELL DISTRIBUTION WIDTH 12.2 % (11.5-14.5); WHITE BLOOD COUNT 13.2 10^3/uL (4.0-10.0)
[2018-02-13] MEDS: HEPARIN SOD (PORCINE) 5000 UNITS/ML VIAL SC (06:29)
[2018-02-13 06:44] LABS: ANION GAP 5 MEQ/L (8-16); BLOOD UREA NITROGEN 28 MG/DL (7-18); CALCIUM LEVEL 8.9 MG/DL (8.8-10.2); CARBON DIOXIDE LEVEL 33 MEQ/L (21-32); CHLORIDE LEVEL 105 MEQ/L (98-107); CREATININE FOR GFR 0.84 MG/DL (0.55-1.30); GLOMERULAR FILTRATION RATE > 60.0 (>32); GLUCOSE, FASTING 136 MG/DL (70-100); POTASSIUM SERUM 3.7 MEQ/L (3.5-5.1); SODIUM LEVEL 143 MEQ/L (136-145)
[2018-02-13] MEDS: IPRATROPIUM 0.5MG/ALBUTEROL 2.5MG INH SOL UD 3ML (DUONEB)(J7620) NEB ×2 (07:21)
[2018-02-13] MEDS: levETIRAcetam 250MG TABLET (KEPPRA) PO (07:50)
[2018-02-13] MEDS: HumaLOG INSULIN (NovoLOG) PER UNIT SC ×2 (07:50→12:46)
[2018-02-13] MEDS: OMEPRAZOLE 20 MG CAP PO (07:51)
[2018-02-13] MEDS: guaiFENesin ER 600 MG TAB PO (07:51)
[2018-02-13] MEDS: FAMOTIDINE 20 MG TAB PO (07:51)
[2018-02-13] MEDS: VITAMIN D 1,000 INTERNATIONAL UNITS TABLET PO (07:51)
[2018-02-13] MEDS: MULTIVITAMINS/MINERALS THERAP 1 TAB PO (07:51)
[2018-02-13] MEDS: ASCORBIC ACID 500 MG TAB PO (07:51)
[2018-02-13] MEDS: CARVedilol 12.5 MG TAB PO (07:52)
[2018-02-13] MEDS: ISOSORBIDE MON. (IMDUR) 30 MG XR TAB PO (07:52)
[2018-02-13] MEDS: predniSONE 20 MG TAB PO (07:52)
[2018-02-13] MEDS: ASPIRIN 81 MG ENTERIC TAB PO (07:52)
[2018-02-13] MEDS: BRIMONIDINE 0.1% OPHTH SOLN 5 ML OU (07:52)
[2018-02-13 11:33] LABS: BEDSIDE GLUCOSE 191 MG/DL (83-110)
[2018-02-15 12:11] LABS: BEDSIDE GLUCOSE 280 MG/DL (83-110)
== END 2018-02-13 12:53 | disposition home health service (06) | DRG 152 ==
LOC: M ED 16:48 → M ED INP 22:17 → M MSPAV 22:42
DX: J00 Acute nasopharyngitis [common cold] (principal); J96.01 Acute respiratory failure with hypoxia; I50.30 Unspecified diastolic (congestive) heart failure; I13.0 Hypertensive heart and chronic kidney disease with heart failure and stage 1 through stage 4 chronic kidney disease, or unspecified chronic kidney disease; E11.40 Type 2 diabetes mellitus with diabetic neuropathy, unspecified; H40.9 Unspecified glaucoma; K21.9 Gastro-esophageal reflux disease without esophagitis; E66.9 Obesity, unspecified; E11.22 Type 2 diabetes mellitus with diabetic chronic kidney disease; N18.3 Chronic kidney disease, stage 3 (moderate); R53.81 Other malaise; G47.33 Obstructive sleep apnea (adult) (pediatric); G40.909 Epilepsy, unspecified, not intractable, without status epilepticus; I25.10 Atherosclerotic heart disease of native coronary artery without angina pectoris; Z90.710 Acquired absence of both cervix and uterus; Z79.82 Long term (current) use of aspirin; Z79.4 Long term (current) use of insulin; Z79.899 Other long term (current) drug therapy; Z91.040 Latex allergy status; Z88.8 Allergy status to other drugs, medicaments and biological substances; Z88.2 Allergy status to sulfonamides; I25.2 Old myocardial infarction

== ENCOUNTER 2018-02-15 20:53 | Observation (INO) | payer MEDICARE, OTHER ==
[2018-02-15] MEDS: IPRATROPIUM 0.5MG/ALBUTEROL 2.5MG INH SOL UD 3ML (DUONEB)(J7620) NEB ×2 (21:40)
[2018-02-15 21:41] LABS: VENOUS BASE EXCESS 1.2 (-2.0-2.0); VENOUS HCO3 23.6 MEQ/L (23.0-27.0); VENOUS O2 SATURATION 96.2 % (60.0-80.0); VENOUS PARTIAL PRESSURE CO2 30.9 mmHg (38.0-50.0); VENOUS PARTIAL PRESSURE O2 73.9 mmHg (30.0-50.0); VENOUS STANDARD HCO3 25.5 MEQ/L; VENOUS TOTAL CO2 24.5 MEQ/L (24.0-28.0)
[2018-02-15 21:42] LABS: HEMATOCRIT 37.6 % (36.0-47.0); HEMOGLOBIN 13.2 g/dl (12.0-15.5); MEAN CORPUSCULAR HEMOGLOBIN 31.8 pg (27.0-33.0); MEAN CORPUSCULAR HGB CONC 35.1 g/dl (32.0-36.5); MEAN CORPUSCULAR VOLUME 90.6 fl (80.0-96.0); PLATELET COUNT, AUTOMATED 267 10^3/uL (150-450); RED BLOOD COUNT 4.15 10^6/uL (4.00-5.40); RED CELL DISTRIBUTION WIDTH 12.4 % (11.5-14.5); WHITE BLOOD COUNT 12.2 10^3/uL (4.0-10.0)
[2018-02-15 21:48] LABS: ADD MANUAL DIFFER YES; DIFF SLIDE NUMBER 151; POS COUNT POS FLAG; POSITIVE MORPH POS FLAG
[2018-02-15] MEDS: ACETAMINOPHEN 325 MG TAB PO ×2 (22:00)
[2018-02-15 22:03] LABS: LYMPHOCYTES 19 % (16-52); MONOCYTES 3 % (0-8); NEUTROPHILS 78 % (35-75); PLATELET ESTIMATE NORMAL (NORMAL)
[2018-02-15 22:04] LABS: POLYCHROMASIA 1+
[2018-02-15 22:07] LABS: ANION GAP 10 MEQ/L (8-16); BLOOD UREA NITROGEN 34 MG/DL (7-18); CALCIUM LEVEL 9.3 MG/DL (8.8-10.2); CARBON DIOXIDE LEVEL 27 MEQ/L (21-32); CHLORIDE LEVEL 104 MEQ/L (98-107); CK-MB VALUE MASS < 1.0 NG/ML (<3.6); CPK CREATINE PHOSPHOKINASE 46 U/L (26-192); CREATININE FOR GFR 1.01 MG/DL (0.55-1.30); GLUCOSE, FASTING 252 MG/DL (70-100); MB/CK RELATIVE INDEX 2.17 (< OR =4); POTASSIUM SERUM 4.3 MEQ/L (3.5-5.1); SODIUM LEVEL 141 MEQ/L (136-145); TROPONIN I < 0.02 NG/ML (< 0.10)
[2018-02-15 22:33] LABS: NT-PRO BNP 200 PG/ML (<450)
[2018-02-15] MEDS ORDERED: GLUCOSE 4 GM CHEW TABLET PO ×2 (23:30)
[2018-02-15] MEDS ORDERED: GLUCAGON FOR INJ 1 MG VIAL (J1610) SC ×2 (23:30)
[2018-02-15] MEDS ORDERED: DEXTROSE 50% 50 ML SYRINGE IV ×2 (23:30)
[2018-02-15] MEDS ORDERED: IPRATROPIUM 0.5MG/ALBUTEROL 2.5MG INH SOL UD 3ML (DUONEB)(J7620) NEB ×2 (23:30)
[2018-02-15] MEDS ORDERED: ISOVUE-370 76% 100ML VIAL (Q9967) As Ordered ×2 (23:41)
[2018-02-15] MEDS ORDERED: NITROGLYCERIN 0.4 MG SUBL TABLET SL ×2 (23:45)
[2018-02-16] MEDS: methylPREDNISolone INJ 125 MG/2 ML VIAL (J2930) IV ×2 (00:47)
[2018-02-16 01:18] LABS: BEDSIDE GLUCOSE 157 MG/DL (83-110)
[2018-02-16] MEDS: HumaLOG INSULIN (NovoLOG) PER UNIT SC ×10 (01:25→21:27)
[2018-02-16] MEDS: CARVedilol 12.5 MG TAB PO ×6 (01:30→21:26)
[2018-02-16] MEDS: GABAPENTIN 100 MG CAP PO ×4 (01:30→21:25)
[2018-02-16] MEDS: levETIRAcetam 250MG TABLET (KEPPRA) PO ×6 (01:30→21:25)
[2018-02-16] MEDS: LEVEMIR (INSULIN DETEMIR) 1 UNITS/0.01ML SC ×4 (01:31→21:26)
[2018-02-16] MEDS: FAMOTIDINE 20 MG TAB PO ×6 (01:31→21:25)
[2018-02-16] MEDS: LATANOPROST 0.005% OPHTH SOLN 2.5 ML OU ×4 (01:31→21:25)
[2018-02-16] MEDS: BRIMONIDINE 0.1% OPHTH SOLN 5 ML OU ×6 (01:32→21:26)
[2018-02-16] MEDS: NS 1,000 ML IV ×2 (01:34)
[2018-02-16] MEDS: ACETAMINOPHEN TAB 650MG DOSE (2X325MG) PO ×2 (01:38)
[2018-02-16] MEDS: IPRATROPIUM 0.5MG/ALBUTEROL 2.5MG INH SOL UD 3ML (DUONEB)(J7620) NEB ×8 (02:00→20:00)
[2018-02-16 06:52] LABS: ANION GAP 8 MEQ/L (8-16); BLOOD UREA NITROGEN 31 MG/DL (7-18); CALCIUM LEVEL 8.5 MG/DL (8.8-10.2); CARBON DIOXIDE LEVEL 31 MEQ/L (21-32); CHLORIDE LEVEL 103 MEQ/L (98-107); CK-MB VALUE MASS 1.4 NG/ML (<3.6); CPK CREATINE PHOSPHOKINASE 42 U/L (26-192); CREATININE FOR GFR 0.85 MG/DL (0.55-1.30); GLOMERULAR FILTRATION RATE > 60.0 (>32); GLUCOSE, FASTING 219 MG/DL (70-100); MB/CK RELATIVE INDEX 3.33 (< OR =4); POTASSIUM SERUM 4.6 MEQ/L (3.5-5.1); SODIUM LEVEL 142 MEQ/L (136-145); TROPONIN I < 0.02 NG/ML (< 0.10)
[2018-02-16 07:06] LABS: HEMATOCRIT 35.6 % (36.0-47.0); HEMOGLOBIN 12.2 g/dl (12.0-15.5); MEAN CORPUSCULAR HEMOGLOBIN 31.9 pg (27.0-33.0); MEAN CORPUSCULAR HGB CONC 34.3 g/dl (32.0-36.5); PLATELET COUNT, AUTOMATED 225 10^3/uL (150-450); RED BLOOD COUNT 3.83 10^6/uL (4.00-5.40); RED CELL DISTRIBUTION WIDTH 12.5 % (11.5-14.5); WHITE BLOOD COUNT 11.4 10^3/uL (4.0-10.0)
[2018-02-16] MEDS ORDERED: methylPREDNISolone INJ 40 MG/1 ML VIAL (J2920) IV ×2 (08:00)
[2018-02-16] MEDS: VITAMIN D 1,000 INTERNATIONAL UNITS TABLET PO ×2 (08:10)
[2018-02-16] MEDS: predniSONE 20 MG TAB PO ×2 (08:10)
[2018-02-16] MEDS: ASPIRIN 81 MG ENTERIC TAB PO ×2 (08:10)
[2018-02-16] MEDS: OMEPRAZOLE 20 MG CAP PO ×2 (08:10)
[2018-02-16] MEDS: MULTIVITAMINS/MINERALS THERAP 1 TAB PO ×2 (08:10)
[2018-02-16] MEDS: ASCORBIC ACID 500 MG TAB PO ×2 (08:11)
[2018-02-16] MEDS: ENOXAPARIN 40 MG/0.4 ML SYRINGE (J1650) SC ×2 (08:11)
[2018-02-16] MEDS: ISOSORBIDE MON. (IMDUR) 30 MG XR TAB PO ×2 (08:11)
[2018-02-16] MEDS: MIRALAX *UNIT DOSE* 17GM PACKET PO ×2 (08:12)
[2018-02-16 11:45] LABS: BEDSIDE GLUCOSE 181 MG/DL (83-110)
[2018-02-16 12:33] LABS: CPK CREATINE PHOSPHOKINASE 36 U/L (26-192); TROPONIN I < 0.02 NG/ML (< 0.10)
[2018-02-16 12:34] LABS: CK-MB VALUE MASS < 1.0 NG/ML (<3.6); MB/CK RELATIVE INDEX 2.77 (< OR =4)
[2018-02-16 16:53] LABS: BEDSIDE GLUCOSE 364 MG/DL (83-110)
[2018-02-16 20:04] LABS: BEDSIDE GLUCOSE 274 MG/DL (83-110)
[2018-02-16] MEDS ORDERED: PILL CRUSHER/CUTTER 1 EACH XX ×2 (21:30)
[2018-02-17] MEDS: IPRATROPIUM 0.5MG/ALBUTEROL 2.5MG INH SOL UD 3ML (DUONEB)(J7620) NEB ×6 (00:52→13:59)
[2018-02-17 05:56] LABS: HEMATOCRIT 36.7 % (36.0-47.0); HEMOGLOBIN 12.4 g/dl (12.0-15.5); MEAN CORPUSCULAR HEMOGLOBIN 31.7 pg (27.0-33.0); MEAN CORPUSCULAR HGB CONC 33.8 g/dl (32.0-36.5); MEAN CORPUSCULAR VOLUME 93.9 fl (80.0-96.0); PLATELET COUNT, AUTOMATED 229 10^3/uL (150-450); RED BLOOD COUNT 3.91 10^6/uL (4.00-5.40); RED CELL DISTRIBUTION WIDTH 12.4 % (11.5-14.5); WHITE BLOOD COUNT 15.8 10^3/uL (4.0-10.0)
[2018-02-17 06:12] LABS: ANION GAP 6 MEQ/L (8-16); BLOOD UREA NITROGEN 30 MG/DL (7-18); CALCIUM LEVEL 8.7 MG/DL (8.8-10.2); CARBON DIOXIDE LEVEL 31 MEQ/L (21-32); CHLORIDE LEVEL 106 MEQ/L (98-107); CREATININE FOR GFR 0.81 MG/DL (0.55-1.30); GLOMERULAR FILTRATION RATE > 60.0 (>32); GLUCOSE, FASTING 133 MG/DL (70-100); SODIUM LEVEL 143 MEQ/L (136-145)
[2018-02-17] MEDS: HumaLOG INSULIN (NovoLOG) PER UNIT SC ×4 (08:04→12:17)
[2018-02-17] MEDS: predniSONE 20 MG TAB PO ×2 (08:05)
[2018-02-17] MEDS: CARVedilol 12.5 MG TAB PO ×2 (08:05)
[2018-02-17] MEDS: levETIRAcetam 250MG TABLET (KEPPRA) PO ×2 (08:05)
[2018-02-17] MEDS: FAMOTIDINE 20 MG TAB PO ×2 (08:05)
[2018-02-17] MEDS: OMEPRAZOLE 20 MG CAP PO ×2 (08:05)
[2018-02-17] MEDS: ASPIRIN 81 MG ENTERIC TAB PO ×2 (08:05)
[2018-02-17] MEDS: VITAMIN D 1,000 INTERNATIONAL UNITS TABLET PO ×2 (08:05)
[2018-02-17] MEDS: MULTIVITAMINS/MINERALS THERAP 1 TAB PO ×2 (08:05)
[2018-02-17] MEDS: ISOSORBIDE MON. (IMDUR) 30 MG XR TAB PO ×2 (08:05)
[2018-02-17] MEDS: ASCORBIC ACID 500 MG TAB PO ×2 (08:05)
[2018-02-17] MEDS: MIRALAX *UNIT DOSE* 17GM PACKET PO ×2 (08:06)
[2018-02-17] MEDS: BRIMONIDINE 0.1% OPHTH SOLN 5 ML OU ×2 (08:06)
[2018-02-17] MEDS: ENOXAPARIN 40 MG/0.4 ML SYRINGE (J1650) SC ×2 (08:06)
[2018-02-17 11:41] LABS: BEDSIDE GLUCOSE 193 MG/DL (83-110)
== END 2018-02-17 14:03 | disposition home or self-care (01) ==
LOC: M MSPAV 02-16 01:00 → M ED 20:53 → M ED INP 23:30
DX: R06.02 Shortness of breath (principal); G47.33 Obstructive sleep apnea (adult) (pediatric); N18.3 Chronic kidney disease, stage 3 (moderate); E11.21 Type 2 diabetes mellitus with diabetic nephropathy; I25.10 Atherosclerotic heart disease of native coronary artery without angina pectoris; I12.9 Hypertensive chronic kidney disease with stage 1 through stage 4 chronic kidney disease, or unspecified chronic kidney disease; K21.9 Gastro-esophageal reflux disease without esophagitis; R56.9 Unspecified convulsions; I50.9 Heart failure, unspecified; E55.9 Vitamin D deficiency, unspecified; M81.0 Age-related osteoporosis without current pathological fracture; Z79.82 Long term (current) use of aspirin; Z79.52 Long term (current) use of systemic steroids; Z79.4 Long term (current) use of insulin; Z88.0 Allergy status to penicillin; Z88.2 Allergy status to sulfonamides; Z88.8 Allergy status to other drugs, medicaments and biological substances
CPT/HCPCS: Q9967

== ENCOUNTER 2018-02-27 00:56 | Emergency (ER) | payer MEDICARE, OTHER ==
[2018-02-27 01:22] LABS: BASO # 0.1 10^3/uL (0.0-0.2); BASO % 0.5 % (0.0-1.0); EOS # 0.3 10^3/uL (0.0-0.50); EOS % 2.4 % (0.0-3.0); HEMATOCRIT 40.8 % (36.0-47.0); HEMOGLOBIN 13.6 g/dl (12.0-15.5); LYMPH # 2.9 10^3/uL (1.5-4.5); LYMPH % 22.4 % (24.0-44.0); MEAN CORPUSCULAR HEMOGLOBIN 32.1 pg (27.0-33.0); MEAN CORPUSCULAR HGB CONC 33.3 g/dl (32.0-36.5); MEAN CORPUSCULAR VOLUME 96.2 fl (80.0-96.0); MONO # 1.7 10^3/uL (0.0-0.8); MONO % 13.3 % (0.0-5.0); NEUTROPHILS # 7.9 10^3/uL (1.8-7.7); NEUTROPHILS % 60.4 % (36.0-66.0); PLATELET COUNT, AUTOMATED 236 10^3/uL (150-450); RED BLOOD COUNT 4.24 10^6/uL (4.00-5.40); RED CELL DISTRIBUTION WIDTH 12.8 % (11.5-14.5); WHITE BLOOD COUNT 13.1 10^3/uL (4.0-10.0)
[2018-02-27 01:35] LABS: INR 0.97
[2018-02-27 01:36] LABS: PARTIAL THROMBOPLASTIN TIME 25.7 SECONDS (25.4-37.6)
[2018-02-27 01:44] LABS: ANION GAP 5 MEQ/L (8-16); BLOOD UREA NITROGEN 24 MG/DL (7-18); CALCIUM LEVEL 8.6 MG/DL (8.8-10.2); CARBON DIOXIDE LEVEL 32 MEQ/L (21-32); CHLORIDE LEVEL 106 MEQ/L (98-107); CK-MB VALUE MASS < 1.0 NG/ML (<3.6); CPK CREATINE PHOSPHOKINASE 48 U/L (26-192); GLOMERULAR FILTRATION RATE > 60.0 (>32); GLUCOSE, FASTING 134 MG/DL (70-100); MB/CK RELATIVE INDEX 2.08 (< OR =4); POTASSIUM SERUM 3.9 MEQ/L (3.5-5.1); SODIUM LEVEL 143 MEQ/L (136-145); TROPONIN I < 0.02 NG/ML (< 0.10)
[2018-02-27] MEDS ORDERED: ISOVUE-370 76% 100ML VIAL (Q9967) As Ordered (01:56)
[2018-02-27] MEDS: ASPIRIN 81 MG CHEW TABLET PO (01:58)
[2018-02-27] MEDS: ONDANSETRON 4MG/2ML VIAL (J2405) IV (01:58)
[2018-02-27] MEDS: NITROGLYCERIN 0.4 MG SUBL TABLET SL ×2 (01:58→02:05)
[2018-02-27] MEDS: MORPHINE 2 MG/ML 1ML SYRINGE (J2270) IV (01:59)
[2018-02-27 02:42] LABS: FREE T4 0.99 NG/DL (0.76-1.46)
[2018-02-27 07:13] LABS: CPK CREATINE PHOSPHOKINASE 64 U/L (26-192); TROPONIN I < 0.02 NG/ML (< 0.10)
[2018-02-27 07:14] LABS: CK-MB VALUE MASS < 1.0 NG/ML (<3.6); MB/CK RELATIVE INDEX 1.56 (< OR =4)
== END 2018-02-27 07:40 | disposition home or self-care (01) ==
LOC: M ED 00:56
DX: R07.89 Other chest pain (principal); I50.9 Heart failure, unspecified; I25.2 Old myocardial infarction; I10 Essential (primary) hypertension; E78.5 Hyperlipidemia, unspecified; K21.9 Gastro-esophageal reflux disease without esophagitis; N18.3 Chronic kidney disease, stage 3 (moderate); J45.909 Unspecified asthma, uncomplicated; G40.909 Epilepsy, unspecified, not intractable, without status epilepticus; K31.84 Gastroparesis; I51.7 Cardiomegaly; K44.9 Diaphragmatic hernia without obstruction or gangrene; D17.79 Benign lipomatous neoplasm of other sites; J98.11 Atelectasis; Z79.82 Long term (current) use of aspirin; Z79.4 Long term (current) use of insulin; Z79.899 Other long term (current) drug therapy; Z88.0 Allergy status to penicillin; Z88.2 Allergy status to sulfonamides; Z88.8 Allergy status to other drugs, medicaments and biological substances; Z91.040 Latex allergy status
CPT/HCPCS: J2405

== ENCOUNTER 2018-04-26 12:23 | Emergency (ER) | payer MEDICARE, OTHER ==
[2018-04-26] MEDS: diphenhydrAMINE INJ 50MG/ML VIAL (J1200) IV (12:57)
[2018-04-26] MEDS: METOCLOPRAMIDE INJ 10MG/2ML VIAL (J2765) IV (13:00)
[2018-04-26] MEDS: NS 1,000 ML IV (13:00)
[2018-04-26 13:13] LABS: BASO % 0.2 % (0.0-1.0); EOS # 0.2 10^3/uL (0.0-0.50); EOS % 2.4 % (0.0-3.0); HEMATOCRIT 37.9 % (36.0-47.0); IMMATURE GRANULOCYTE % 0.2 % (0-3.0); LYMPH # 2.3 10^3/uL (1.5-4.5); LYMPH % 25.7 % (24.0-44.0); MEAN CORPUSCULAR HEMOGLOBIN 31.8 pg (27.0-33.0); MEAN CORPUSCULAR HGB CONC 34.3 g/dl (32.0-36.5); MEAN CORPUSCULAR VOLUME 92.7 fl (80.0-96.0); MONO # 0.9 10^3/uL (0.0-0.8); MONO % 10.5 % (0.0-5.0); NEUTROPHILS # 5.4 10^3/uL (1.8-7.7); PLATELET COUNT, AUTOMATED 195 10^3/uL (150-450); RED BLOOD COUNT 4.09 10^6/uL (4.00-5.40); RED CELL DISTRIBUTION WIDTH 12.8 % (11.5-14.5); WHITE BLOOD COUNT 8.9 10^3/uL (4.0-10.0)
[2018-04-26 13:23] LABS: INR 0.93; PROTHROMBIN TIME 12.6 SECONDS (12.1-14.4)
[2018-04-26 13:45] LABS: ACETAMINOPHEN LEVEL < 2.0 UG/ML (10.0-30.0); ALBUMIN 3.6 GM/DL (3.2-5.2); ALBUMIN/GLOBULIN RATIO 1.09 (1.00-1.93); ALKALINE PHOSPHATASE 78 U/L (45-117); ALT/SGPT 21 U/L (12-78); ANION GAP 10 MEQ/L (8-16); AST/SGOT 33 U/L (7-37); BILIRUBIN,DIRECT < 0.1 MG/DL (0.0-0.2); BILIRUBIN,TOTAL 0.6 MG/DL (0.2-1.0); BLOOD UREA NITROGEN 19 MG/DL (7-18); CALCIUM LEVEL 8.6 MG/DL (8.8-10.2); CARBON DIOXIDE LEVEL 25 MEQ/L (21-32); CHLORIDE LEVEL 110 MEQ/L (98-107); CREATININE FOR GFR 0.61 MG/DL (0.55-1.30); GLOMERULAR FILTRATION RATE > 60.0 (>32); GLUCOSE, FASTING 151 MG/DL (70-100); POTASSIUM SERUM 4.5 MEQ/L (3.5-5.1); SALICYLATE LEVEL < 1.7 MG/DL (5.0-30.0); SODIUM LEVEL 145 MEQ/L (136-145); THYROID STIMULATING HORMONE 0.641 uIU/ML (0.358-3.740); TOTAL PROTEIN 6.9 GM/DL (6.4-8.2)
[2018-04-26] MEDS: KETOROLAC 30 MG/ML VIAL (J1885) IV (14:05)
== END 2018-04-26 15:04 | disposition home or self-care (01) ==
LOC: M ED 12:23
DX: R51 Headache (principal); E11.9 Type 2 diabetes mellitus without complications; I11.9 Hypertensive heart disease without heart failure; Z88.1 Allergy status to other antibiotic agents; Z88.0 Allergy status to penicillin; Z88.2 Allergy status to sulfonamides; Z88.9 Allergy status to unspecified drugs, medicaments and biological substances; H40.9 Unspecified glaucoma; R56.9 Unspecified convulsions; J45.909 Unspecified asthma, uncomplicated; Z79.82 Long term (current) use of aspirin; Z79.4 Long term (current) use of insulin; Z79.899 Other long term (current) drug therapy
CPT/HCPCS: J1200

== ENCOUNTER → 2018-07-19 | Outpatient (CLI) | payer MEDICARE, OTHER ==
[2018-07-19 13:15] LABS: HEMOGLOBIN 13.4 g/dl (12.0-15.5); MEAN CORPUSCULAR HEMOGLOBIN 31.5 pg (27.0-33.0); MEAN CORPUSCULAR HGB CONC 33.5 g/dl (32.0-36.5); MEAN CORPUSCULAR VOLUME 94.1 fl (80.0-96.0); PLATELET COUNT, AUTOMATED 244 10^3/uL (150-450); RED BLOOD COUNT 4.25 10^6/uL (4.00-5.40); RED CELL DISTRIBUTION WIDTH 12.3 % (11.5-14.5); WHITE BLOOD COUNT 8.1 10^3/uL (4.0-10.0)
[2018-07-19 13:40] LABS: ALBUMIN 3.5 GM/DL (3.2-5.2); ALBUMIN/GLOBULIN RATIO 1.03 (1.00-1.93); ALKALINE PHOSPHATASE 55 U/L (45-117); ALT/SGPT 15 U/L (12-78); AMYLASE 59 U/L (25-115); ANION GAP 8 MEQ/L (8-16); AST/SGOT 14 U/L (7-37); BILIRUBIN,TOTAL 0.6 MG/DL (0.2-1.0); BLOOD UREA NITROGEN 33 MG/DL (7-18); C REACTIVE PROTEIN QUANTITATIV 1.66 MG/DL (0.00-0.30); CALCIUM LEVEL 8.9 MG/DL (8.8-10.2); CARBON DIOXIDE LEVEL 30 MEQ/L (21-32); CHLORIDE LEVEL 105 MEQ/L (98-107); CREATININE FOR GFR 0.88 MG/DL (0.55-1.30); GLOMERULAR FILTRATION RATE > 60.0 (>32); GLUCOSE, FASTING 145 MG/DL (70-100); LIPASE 135 U/L (73-393); SODIUM LEVEL 143 MEQ/L (136-145); TOTAL PROTEIN 6.9 GM/DL (6.4-8.2)
[2018-07-19 14:06] LABS: ERYTHROCYTE SEDIMENTATION RATE 9 mm/hr (0-30)
== END ==
LOC: M LAB 12:38
DX: R10.84 Generalized abdominal pain (principal); R19.7 Diarrhea, unspecified
CPT/HCPCS: 82150

== ENCOUNTER → 2018-07-23 | Outpatient (CLI) | payer MEDICARE, OTHER ==
[~2018-07-23] MED LIST changes: +AMIT24CA7 PO; +BRIM1OPD OU; +DOXY100C37 PO; +ERYT5OPO OD; +ERYTOIN8 OD; +GABA-1171 PO; +LOSA25TA14 PO; -LOSA25TA8 PO; +MIRA3350 PO; +OMEP20CA3 PO; +PRED10TA2 PO; +RANI150T PO; +REGL10TA6 PO; +VITA500T PO; +ZOFR4TAB14 PO; -ZOFR4TAB3 PO
--- NOTE | 2018-07-23 09:13 | REP ---
Clinical: Abdominal pain and diarrhea. Technique: Real time baker scale ultrasound examination using curved array transducer. Findings: Liver, spleen, and pancreas are normal in contour, size, echogenicity without focal hepatic, splenic or pancreatic lesions identified. Spleen measures 9.7 x 5.3 x 9.4 cm (splenic index 483). The gallbladder is normal and without gallstones, wall thickening, or pericholecystic fluid. No biliary ductal dilatation is appreciated and the common bile duct measures 5.2 mm diameter. The bilateral kidneys are normal in reniform shape without hydronephrosis. Right kidney measures 10.4 x 5.8 x 4.2 cm. Left kidney measures 10.9 x 5.4 x 4.9 cm. Abdominal aorta normal. No ascites. Impression: Normal complete abdominal ultrasound. Electronically Signed by Gamal Gil MD 07/23/2018 09:04 A
== END ==
LOC: M RAD 08:21
PROVIDERS: ATTEND Nurse Practitioner Family
DX: R19.7 Diarrhea, unspecified (principal); R10.84 Generalized abdominal pain

== ENCOUNTER → 2018-11-17 | Outpatient (CLI) | payer MEDICARE, OTHER ==
[~2018-11-17] MED LIST changes: -/GLIM2TA; -/GLIM2TA OR; -/PANT40TA; -/PANT40TA OR; -/ROPI1TA OR; -/ROPI5TA OR; +AMAR1TAB5; +AMAR1TAB5 OR; -ASPI1TAB PO; +ASPI81TA26 PO; -DULO30CA PO; +DULO30CA9 PO; +ERYT1OIN26 OD; -ERYT5OPO OD; +FLUT50SP12; -FLUTISP; +PROT1TAB2; +PROT1TAB2 OR; +REQU1TAB15 OR; +REQU1TAB16 OR
--- NOTE | 2018-11-17 12:40 | REPMRS ---
Patient History The patient states she has not had a clinical breast exam in over a year. Family history of breast cancer at age 71 in sister. Digital Mammo Screening Bilat: November 17, 2018 - Exam #: [id number] Bilateral CC and MLO view(s) were taken. Technologist: Sherri Cristina, Technologist Prior study comparison: November 14, 2017, bilateral digital woman screen mammo, performed at [facility]. November 07, 2016, bilateral digital mammo screening bilat performed at [facility]. November 07, 2015, bilateral digital mammo screening bilat performed at [facility]. FINDINGS: There are scattered fibroglandular densities. The benign raised skin lesion is again visible on the right superiorly and laterally. There is a needle biopsy marker clip again noted on the left. There are some stable calcifications near the marker clip. There has been no change in the appearance of the mammogram from the prior studies. There is a mild amount of scattered fibroglandular density which is fairly symmetric. There is no interval development of dominant mass, architectural distortion, or clustered microcalcification suggestive of malignancy. 3-D tomosynthesis shows no additional findings. Assessment: BI-RADS/ACR category 2 mammogram. Benign Findings. Recommendation Routine screening mammogram of both breasts in 1 year (for women over age 40). This patient's Lifetime Breast Cancer RIsk is estimated at 1.8 %. This mammogram was interpreted with the aid of an FDA-approved computer-aided dectection system. Electronically Signed By: Grady Moncada MD 11/17/18 [id number]
== END ==
LOC: M RAD 11:32
PROVIDERS: ATTEND Internal Medicine
DX: Z12.31 Encounter for screening mammogram for malignant neoplasm of breast (principal); Z80.3 Family history of malignant neoplasm of breast

== ENCOUNTER → 2018-11-18 | Outpatient (CLI) | payer MEDICARE, OTHER ==
--- NOTE | 2018-11-20 21:30 | SLEEPCENT ---
DATE OF PROCEDURE: 11/18/2018 ORDERED BY: Elena Cevallos Nocturnal polysomnography was performed for re-titration of pressure therapy in this patient with obstructive sleep apnea syndrome experiencing persistent sleep difficulties. For testing the patient was fit with a ResMed soft FX nasal pillows device of large size, 10 cm of water pressure were applied to the circuit and the lights were extinguished. 8 hours and 7 minutes of data were reviewed. There were 296 minutes of sleep identified. Sleep latency was prolonged at 20 minutes. Rapid eye movement (REM) latency was prolonged at 344 minutes. Sleep architecture showed fragmentation early in the study. There was one REM cycle later in the test. Overall sleep efficiency was only 61.8%. The electrocardiogram showed sinus rhythm with an average heart rate of 64 beats per minute. EEG showed reasonably normal waveforms for awake and sleep. Continuous positive airway pressure (CPAP) at a pressure of +10 showed reasonable results. However, some snoring prompted an increase to CPAP at a pressure of +11. There were no occurrence of breakthrough respiratory events. There was some limb activity noted, two trains of 30 events. Limb movement arousal index of 10.9. IMPRESSION: Obstructive sleep apnea syndrome (G47.33). RECOMMENDATIONS: Nightly use of pressure therapy 11 cm of water. Should the patient's sleep symptoms persist, interventions to reduce the frequency of arousals from limb activity may be helpful.
== END ==
LOC: M SLEEP 19:42
PROVIDERS: ATTEND Nurse Practitioner Adult Health
DX: G47.33 Obstructive sleep apnea (adult) (pediatric) (principal)

== ENCOUNTER → 2019-02-16 | Outpatient (CLI) | payer MEDICARE, OTHER ==
[~2019-02-16] MED LIST changes: +CONRAY-43 43% 50ML VIAL (Q9960) As Ordered ONE; +LIDOCAINE 1% MDV 20ML VIAL As Ordered ONE; -OMEP20CA3 PO; +OMEP20CA4 PO; +TRIAMCINOLONE ACETONIDE SUSP 40 MG/ML VIAL (J3301) As Ordered ONE
--- NOTE | 2019-02-17 17:10 | REP ---
RIGHT HIP INJECTION The procedure was performed under the direct supervision of Dr. Anders. The benefits and risks including but not limited to pain infection bleeding and anaphylaxis were explained to the patient and informed consent was obtained. The right femoral neck was localized using fluoroscopic guidance. The skin was prepped and draped in a sterile fashion. 1% lidocaine was used as a local anesthetic. Using fluoroscopic guidance a 22-gauge needle was inserted and advanced to the femoral neck. 0.5 ml of Conray 43 was injected to verify placement. 6 ml of a solution containing 5 ml of 1% lidocaine and 1 ml of Kenalog 40 mg injected. The needle was then removed. The patient tolerated the procedure well and there were no immediate complications. Less than 6 seconds of fluoroscopy time was utilized for this procedure. Reviewed by JOEY Wright 02/17/2019 04:56 P Electronically Signed by Sukhjinder Anders MD 02/17/2019 05:01 P
== END ==
LOC: M RADPRO 08:47
PROVIDERS: ATTEND Orthopaedic Surgery
DX: M16.11 Unilateral primary osteoarthritis, right hip (principal)
CPT/HCPCS: 20610; 77002; J3301; Q9960

== ENCOUNTER → 2019-05-14 | Outpatient (CLI) | payer MEDICARE, OTHER ==
[~2019-05-14] MED LIST changes: -CONRAY-43 43% 50ML VIAL (Q9960) As Ordered ONE; -LIDOCAINE 1% MDV 20ML VIAL As Ordered ONE; -TRIAMCINOLONE ACETONIDE SUSP 40 MG/ML VIAL (J3301) As Ordered ONE
[2019-05-14 13:23] LABS: MAGNESIUM LEVEL 1.9 MG/DL (1.8-2.4)
[2019-05-14 13:38] LABS: TOTAL 25(OH) VITAMIN D 44.4 NG/ML (30.0-100.0)
== END ==
LOC: M LAB 11:46
PROVIDERS: ATTEND Internal Medicine Gastroenterology
DX: R10.32 Left lower quadrant pain (principal); E55.9 Vitamin D deficiency, unspecified; Z79.82 Long term (current) use of aspirin; Z79.899 Other long term (current) drug therapy

== ENCOUNTER → 2020-01-12 | Outpatient (CLI) | payer MEDICARE, OTHER ==
[~2020-01-12] MED LIST changes: +ASPI81CH33 PO; +CALC-362 PO; -CHEW500C2 PO; +CLIN150C15 PO; +D31000TA2 PO; -ERYT1OIN26 OD; +ERYT5OIN25 OD; +HYDR-3715 PO; +ISOS1TAB35 PO; -ISOS30TA4 PO; +MORP15TASA PO; +OMEP1CAP73 PO; -OMEP20CA4 PO; +ONDA4TAB6 PO; +TRAM50TA2 PO; +VITA-243 PO; -VITA500T PO; +XARE10TA PO
[2020-01-12 13:52] LABS: HEMATOCRIT 38.7 % (36.0-47.0); HEMOGLOBIN 13.1 g/dl (12.0-15.5); INR 1.02; MEAN CORPUSCULAR HEMOGLOBIN 32.2 pg (27.0-33.0); MEAN CORPUSCULAR HGB CONC 33.9 g/dl (32.0-36.5); MEAN CORPUSCULAR VOLUME 95.1 fl (80.0-96.0); PLATELET COUNT, AUTOMATED 228 10^3/uL (150-450); PROTHROMBIN TIME 13.1 SECONDS (11.8-14.0); RED BLOOD COUNT 4.07 10^6/uL (4.00-5.40); WHITE BLOOD COUNT 7.5 10^3/uL (4.0-10.0)
[2020-01-12 14:04] LABS: ALBUMIN 3.5 GM/DL (3.2-5.2); ALT/SGPT 29 U/L (12-78); BILIRUBIN,TOTAL 0.4 MG/DL (0.2-1.0); BLOOD UREA NITROGEN 19 MG/DL (7-18); CALCIUM LEVEL 8.8 MG/DL (8.8-10.2); CARBON DIOXIDE LEVEL 30 MEQ/L (21-32); CHLORIDE LEVEL 108 MEQ/L (98-107); CREATININE FOR GFR 0.81 MG/DL (0.55-1.30); GLOMERULAR FILTRATION RATE > 60.0 (>32); GLUCOSE, FASTING 137 MG/DL (70-100); SODIUM LEVEL 143 MEQ/L (136-145); TOTAL PROTEIN 7.1 GM/DL (6.4-8.2)
[2020-01-12 14:16] LABS: ERYTHROCYTE SEDIMENTATION RATE 17 mm/hr (0-30)
--- NOTE | 2020-01-12 14:30 | REP ---
CHEST X-RAY: Two views. HISTORY: Right hip osteoarthritis. Comparison study February 27, 2018 and February 15, 2018. FINDINGS: There is a large stable mass at the anterior cardiophrenic angle on the right consistent with pericardial cyst versus pericardial fat versus diaphragmatic eventration. On CT study from February 27, 2018, this is seen to be a large pericardial fat pad. It is unchanged. Heart itself is at the upper range of normal in size. Pleural angles are sharp. Aorta is calcific and somewhat tortuous. Pulmonary vasculature is not increased. There are degenerative changes in the thoracic spine. IMPRESSION: Large stable epicardial fat pad. Borderline heart size. Tortuous calcific aorta. No acute changes. Electronically Signed by Jadiel Moncada MD 01/13/2020 08:08 A
--- NOTE | 2020-01-12 17:36 | ECGEPIP ---
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
== END ==
LOC: M LAB 12:28
PROVIDERS: ATTEND Orthopaedic Surgery
DX: Z01.818 Encounter for other preprocedural examination (principal); M16.12 Unilateral primary osteoarthritis, left hip; Z79.01 Long term (current) use of anticoagulants

== ENCOUNTER → 2020-01-15 | Outpatient (CLI) | payer MEDICARE, OTHER ==
[~2020-01-15] MED LIST changes: -ASPI81CH33 PO; -CALC-362 PO; +CHEW500C2 PO; -CLIN150C15 PO; -D31000TA2 PO; -HYDR-3715 PO; -ISOS1TAB35 PO; +ISOS30TA4 PO; -MORP15TASA PO; -ONDA4TAB6 PO; -TRAM50TA2 PO; +VITAD1000T PO; -XARE10TA PO
== END ==
LOC: M LABSMTC 09:31
PROVIDERS: ATTEND Anesthesiology
DX: Z01.818 Encounter for other preprocedural examination (principal); Z11.59 Encounter for screening for other viral diseases
CPT/HCPCS: C9803; U0003

== ENCOUNTER 2020-01-18 08:34 | Inpatient (IN) | payer MEDICARE, OTHER ==
--- NOTE | 2020-01-14 12:19 | HPE ---
DATE OF ADMISSION: 01/18/2020 ATTENDING PHYSICIAN: Dr. Mic Silveira. CHIEF COMPLAINT: Right hip pain and stiffness. HISTORY: The patient is a pleasant 84-year-old female with progressively worsening right hip pain and stiffness. She failed to improve with conservative measures. She continued to have symptoms with weightbearing activities and activities of daily living. She consented for an elective right total hip arthroplasty with Dr. Silveira for her continued symptoms. Medical optimization pending with Dr. Saenz. CURRENT MEDICATIONS: - Keppra 500 mg daily - Onglyza 5 mg daily - aspirin 81 mg daily - Coreg 12.5 mg daily - isosorbide daily - vitamin D 2000 units daily - nitroglycerin 0.1 mg as needed - Tylenol arthritis 650 mg as needed for pain - omeprazole 40 mg daily ALLERGIES: PENICILLIN LATEX, BACTRIM STATIN DRUGS. CHRONIC MEDICAL CONDITIONS: Gastroesophageal reflux disease. History of silent myocardial infarction (HI) - hypertension - diabetes - seizures PAST SURGICAL HISTORY: Left knee arthroscopy. Hernia repair. SOCIAL HISTORY: The patient is not a tobacco user. She uses alcohol rarely. She is and lives at home with . REVIEW OF SYSTEMS: The patient denies fevers, chills, nausea, vomiting or diarrhea. She denies chest pain, shortness of breath, lightheadedness, dizziness or headaches. She denies any abdominal pain. She denies any recent upper respiratory or urinary tract infection symptoms. The patient does continue to have right hip pain with weightbearing activities and activities of daily living. PHYSICAL EXAMINATION: GENERAL: Well-nourished, well-developed female in no apparent distress. She is alert, oriented and cooperative. Mood and affect are appropriate. VITAL SIGNS: Height 5 feet, 1-1/4 inches, weight 194 pounds, temperature 98 degrees, blood pressure 120/78, heart rate 60, respirations 15. HEART: Regular rate and rhythm. LUNGS: Clear to auscultation bilaterally. Breathing is regular and nonlabored. ABDOMEN: Bowel sounds are present. Abdomen is soft and nontender to palpation. MUSCULOSKELETAL: Right hip exhibits no gross abnormalities. Skin is intact. She has decreased internal and external rotation at the hip in addition to have decreased in flexion. Strength is 4+/5 secondary to pain. Calf is soft without evidence of deep venous thrombosis (DVT). She is neurovascularly intact distally. Extremity does appear to be warm and well perfused. LABORATORY DATA Chest x-ray: Large stable epicardial fat pad. Borderline heart size. Tortuous calcific aorta. No acute changes. Right hip x-ray notable for end-stage degenerative changes. EKG normal sinus rhythm with first-degree AV block. Probable prior inferior and anterior wall myocardial infarctions. Low QRS complex voltage in the precordial leads. No significant change from prior tracings in March 2018. Complete blood count WBC is 7.5, RBCs 4.07, hemoglobin 13.1, hematocrit 38.7, platelets 228. Sed rate 17. Comprehensive metabolic profile; Fasting glucose elevated at 137, BUN elevated at 19, creatinine 0.81, GFR greater than 60, sodium 143, potassium 4, chloride elevated at 108, CO2 38, anion gap decreased at 5, calcium 8.8. AST 16, ALT 29, alkaline phosphatase 100, total bilirubin 0.4, total protein 7.1, albumin 3.5, albumin-globulin ratio decreased at 1.0. Prothrombin time 13.1, INR 1.02. IMPRESSION: Right hip osteoarthritis with x-rays notable for end-stage degenerative changes. PLAN: The patient has consented for an elective right total hip arthroplasty with Dr. Silveira for her continued symptoms. Medical optimization pending with Dr. Saenz. The patient understands to use her Bactroban and Hibiclens as directed. She will be nothing by mouth after midnight the night prior to surgery. She will follow her primary gericare aide teacher's recommendations for taking for her daily medications. JUDY
[2020-01-18] VITALS (7 sets, daily range): BP systolic 110–147; BP diastolic 60–72
[~2020-01-18] VITALS: Ht 157.5 cm; Wt 87.1 kg
[~2020-01-18 08:34] MED LIST changes: +CLINDAMYCIN 900 MG in IV 1 EA IV ONE; +CLINDAMYCIN INJ 900MG/6ML VIAL As Ordered ONE; +EPINEPHrine INJ 1 MG/ML 1ML AMP As Ordered ONE; +LIDOCAINE 1% MDV 20ML VIAL SQ PRN; +LIDOCAINE 2% 100MG/5ML SDV (FOR ANES.) As Ordered ONE; +LR 1,000 ML IV ONE; +MIDAZOLAM INJ 2MG/2ML VIAL (J2250 PER 1MG) As Ordered ONE; +ONDANSETRON 4MG/2ML VIAL As Ordered ONE; +TRANEXAMIC ACID 100 MG/ML 10ML VIAL As Ordered ONE; +fentaNYL 100 MCG/2 ML INJECTION (J3010) As Ordered ONE; +propofoL 200 MG/20 ML VIAL As Ordered ONE
[2020-01-18] MEDS ORDERED: BUPIVACAINE/DEXTROSE 0.75% 2 ML AMP As Ordered ONE (09:04)
[2020-01-18] MEDS ORDERED: BUPIVACAINE LIPOSOME/PF 1.3% 20ML VIAL (13.3MG/ML)(EXPAREL)(C9290 PER1MG) As Ordered ONE ×2 (10:37→11:34)
[2020-01-18] MEDS ORDERED: ACETAMINOPHEN 1000MG 100ML IV BTL (OFIRMEV) (J0131 PER 10MG) As Ordered ONE (11:24)
--- NOTE | 2020-01-18 11:34 | IPN ---
DATE: 01/18/2020 Patient seen and examined, and she wishes to go ahead with a right total hip arthroplasty. She understands the nature of this, the risks of bleeding, infection, damage to nerves, vessels, persistent pain, wear loosening, dislocation, leg length inequality, blood clots, medical problems, , among others. We are planning on using a ceramic head.
[2020-01-18] MEDS ORDERED: PHENYLephrine HCL 500 MCG/5 ML (100MCG/ML) SYRINGE (J2370) As Ordered ONE (11:59)
[2020-01-18] MEDS ORDERED: ePHEDrine SULFATE 25 MG/5 ML(5MG/ML) SYRINGE As Ordered ONE (11:59)
[2020-01-18] MEDS ORDERED: propofoL 200 MG/20 ML VIAL As Ordered ONE (12:04)
[2020-01-18] MEDS ORDERED: HYDROMORPHONE HCL 0.5 MG/ 0.5 ML SYRINGE (J1170 PER 1) IV PRN (12:45)
[2020-01-18] MEDS ORDERED: oxyCODONE 5MG TAB PO PRN (12:45)
[2020-01-18] MEDS ORDERED: fentaNYL 100 MCG/2 ML INJECTION (J3010) IV PRN (12:45)
[2020-01-18] MEDS ORDERED: LR 1,000 ML IV SCH ×2 (12:45→13:00)
[2020-01-18] MEDS ORDERED: ONDANSETRON 4MG/2ML VIAL IV PRN (12:45)
[2020-01-18] MEDS ORDERED: PERCOCET 5MG/325MG TAB PO PRN (13:00)
[2020-01-18] MEDS ORDERED: ACETAMINOPHEN TAB 650MG DOSE (2X325MG) PO PRN (13:00)
[2020-01-18] MEDS: MORPHINE 2 MG/ML 1ML VIAL (J2270) IV PRN (13:55)
[2020-01-18] MEDS ORDERED: GLUCOSE 4GM CHEW TABLET PO PRN (14:00)
[2020-01-18] MEDS ORDERED: DEXTROSE 50% 50 ML SYRINGE IV PRN (14:00)
[2020-01-18] MEDS ORDERED: NITROGLYCERIN 0.4 MG SUBL TABLET SL PRN (14:00)
[2020-01-18] MEDS ORDERED: GLUCAGON INJ 1MG VIAL SC PRN (14:00)
--- NOTE | 2020-01-18 14:01 | CR.PDOC ---
General Date of Consultation: Jan 18, 2020 Consultation REASON FOR CONSULTATION/CHIEF COMPLAINT: Medical management Who presented to the [facility] for an elective orthopedic procedure HISTORY OF PRESENT ILLNESS: Patient is an 84-year-old female with PMHx of CAD (Hx of NH), HTN, DM2, Seizure, GERD who is present at the hospital for an elective orthopedic procedure. Patient has received outpatient medical clearance from her primary care provider, Dr. Saenz. Patient has been scheduled for an elective total right hip arthroplasty. Hospital services consultation for medical evaluation/management. Patient was seen postoperatively, currently she denies any chest pain, shortness of breath, palpitations, nausea, vomiting, abdominal pain, constipation, diarrhea, or urinary discomfort. She is unaware of any recent fevers or chills. Patient with that her appetite is fairly normal and denies any significant changes in her weight. ALLERGIES: Please see below. HOME MEDICATIONS: Please see below. 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 ASSESSMENT/PLAN: Elective total right hip arthroplasty - Patient presented to [facility] for an elective orthopedic procedure - She has received outpatient medical clearance from her primary care provider, Dr. Saenz - Pain control, anticoagulation and physical therapy at the direction of primary orthopedic team CAD (Hx of NH) - c/w Carvedilol and Isosorbide mononitrate - Will hold ASA (re: Recent procedure) HTN - BP well controlled - c/w Carvedilol and Isosorbide mononitrate IDDM2 - Will start insulin sliding scale and adjust the dose of long-acting insulin Seizure - Patients last seizure was reported to be greater than 3 years ago - Will continue with Keppra Vitamin D deficiency - c/w supplementation GERD - c/w Omeprazole DVT prophylaxis - As per primary orthopedic team Vital Signs/I&O Vital Signs Date Time Temp Pulse Resp B/P (MAP) Pulse Ox O2 Delivery O2 Flow Rate FiO2 01/18/20 13:55 17 01/18/20 13:07 98.4 62 119/64 (82) 95 Nasal Cannula 2 Laboratory Data Labs 24H Laboratory Tests 2 01/18/20 09:39: Bedside Glucose (Misc Panel) 166H 01/18/20 12:39: Bedside Glucose (Misc Panel) 152H Allergies Coded Allergies: Penicillins (Verified Allergy, Intermediate, hives, 01/13/20) Sulfa (Sulfonamide Antibiotics) (Verified Allergy, Intermediate, hives, 01/13/20) latex (Verified Allergy, Intermediate, red hands, 01/13/20) pravastatin (Verified Allergy, Intermediate, leg cramps, 01/13/20) rosuvastatin (Verified Allergy, Intermediate, leg cramps, 01/13/20) simvastatin (Verified Allergy, Intermediate, leg cramps, 01/13/20) clonidine (Verified Allergy, Unknown, 01/13/20) Home Medications Scheduled Ascorbic Acid (Vitamin C) 500 Mg Tab, 500 MG PO DAILY, (Reported) Aspirin (Aspirin EC) 81 Mg Tab, 81 MG PO DAILY, (Reported) Brimonidine Tartrate (Alphagan P) 100 Drop/5 Ml Soln, 1 DROP OU BID, (Reported) Carvedilol (Coreg) 12.5 Mg Tab, 12.5 MG PO DAILY, (Reported) Carvedilol (Carvedilol) 12.5 Mg Tab, 6.25 MG PO QHS, (Reported) Cholecalciferol (Vitamin D3) (Vitamin D3) 1,000 Unit Tablet, 2,000 UNITS PO DAILY, (Reported) Cyclosporine (Restasis) 0.05 % Emu, 1 DROP OU BID, (Reported) Insulin Glargine (Lantus) 1 Units/0.01 Ml Susp, 16 UNITS SC QHS, (Reported) Isosorbide Mononitrate (Isosorbide Mononitrate ER) 30 Mg Tab, 30 MG PO DAILY, (Reported) Latanoprost (Xalatan) 0.005 % Ashley, 1 DROP OU QHS, (Reported) Levetiracetam (Keppra) 500 Mg Tab, 500 MG PO QAM, (Reported) Multivitamins (Thera M Plus Tablet) 1 Tab Tab, 1 TAB PO DAILY, (Reported) Omeprazole (Omeprazole) 20 Mg Cap, 20 MG PO DAILY, (Reported) Saxagliptin HCl (Onglyza) 5 Mg Tab, 5 MG PO DAILY, (Reported) Scheduled PRN Metoclopramide HCl (Reglan) 10 Mg Tab, 10 MG PO Q6H PRN for NAUSEA, #20 Nitroglycerin (Nitrostat) 0.4 Mg Subl, 0.4 MG SL NITRO PRN for CHEST PAIN, (Reported) PARTH FARIA MD Jan 18, 2020 14:01
[2020-01-18] MEDS: ASCORBIC ACID 500 MG TAB PO SCH (14:45)
[2020-01-18] MEDS: VITAMIN D 1,000 INTERNATIONAL UNITS TABLET PO SCH (14:45)
[2020-01-18] MEDS: traMADol 50 MG TAB PO PRN (14:46)
[2020-01-18] MEDS: ACETAMINOPHEN 500 MG TAB PO SCH ×2 (14:46→22:16)
--- NOTE | 2020-01-18 15:20 | REP ---
RIGHT HIP, TWO VIEWS: Two views of the right hip performed. There is placement of a total hip prosthesis. Osseous structures are intact. The structures are well alignment. Metallic skin tony are seen laterally. Electronically Signed by Sukhjinder Anders MD 01/18/2020 07:37 P
[2020-01-18] MEDS: MORPHINE 4 MG/ML 1ML VIAL/SYRINGE (J2270) IV PRN (16:17)
[2020-01-18] MEDS: ONDANSETRON 4MG/2ML VIAL IV PRN (16:21)
[2020-01-18] MEDS: HumaLOG INSULIN (NovoLOG) PER UNIT SC SCH ×2 (17:30→20:12)
[2020-01-18] MEDS: CLINDAMYCIN 900 MG in IV 1 EA IV SCH (18:23)
[2020-01-18] MEDS: LEVEMIR (INSULIN DETEMIR) 1 UNITS/0.01ML SC SCH (20:11)
[2020-01-18] MEDS: BRIMONIDINE 0.1% OPHTH SOLN 5 ML OU SCH (20:11)
[2020-01-18] MEDS: LATANOPROST 0.005% OPHTH SOLN 2.5 ML OU SCH (20:11)
[2020-01-18] MEDS: CARVedilol 6.25 MG TAB PO SCH (20:15)
[2020-01-19 02:00] VITALS: BP 114/68
[2020-01-19] MEDS: CLINDAMYCIN 900 MG in IV 1 EA IV SCH (02:46)
[2020-01-19] MEDS: MORPHINE 4 MG/ML 1ML VIAL/SYRINGE (J2270) IV PRN ×2 (04:28→17:48)
[2020-01-19 05:37] VITALS: BP 120/66
[2020-01-19] MEDS: ACETAMINOPHEN 500 MG TAB PO SCH ×3 (06:23→21:37)
[2020-01-19 06:31] LABS: BASO % 0.2 % (0.0-1.0); EOS % 0.2 % (0.0-3.0); HEMATOCRIT 34.4 % (36.0-47.0); HEMOGLOBIN 11.4 g/dl (12.0-15.5); LYMPH # 1.3 10^3/uL (1.5-5.0); MEAN CORPUSCULAR HEMOGLOBIN 31.8 pg (27.0-33.0); MEAN CORPUSCULAR HGB CONC 33.1 g/dl (32.0-36.5); MEAN CORPUSCULAR VOLUME 96.1 fl (80.0-96.0); MONO # 1.4 10^3/uL (0.0-0.8); MONO % 13.3 % (0.0-5.0); NEUTROPHILS # 7.4 10^3/uL (1.5-8.5); NEUTROPHILS % 72.9 % (36.0-66.0); PLATELET COUNT, AUTOMATED 193 10^3/uL (150-450); RED BLOOD COUNT 3.58 10^6/uL (4.00-5.40); WHITE BLOOD COUNT 10.2 10^3/uL (4.0-10.0)
[2020-01-19 07:04] LABS: BLOOD UREA NITROGEN 20 MG/DL (7-18); CALCIUM LEVEL 8.8 MG/DL (8.8-10.2); CARBON DIOXIDE LEVEL 32 MEQ/L (21-32); CHLORIDE LEVEL 106 MEQ/L (98-107); GLOMERULAR FILTRATION RATE > 60.0 (>32); GLUCOSE, FASTING 155 MG/DL (70-100); MAGNESIUM LEVEL 1.9 MG/DL (1.8-2.4); POTASSIUM SERUM 4.2 MEQ/L (3.5-5.1); SODIUM LEVEL 143 MEQ/L (136-145)
[2020-01-19] MEDS: VITAMIN D 1,000 INTERNATIONAL UNITS TABLET PO SCH (08:04)
[2020-01-19] MEDS: MIRALAX *UNIT DOSE* 17GM PACKET PO SCH (08:05)
[2020-01-19] MEDS: levETIRAcetam 250MG TABLET (KEPPRA) PO SCH (08:05)
[2020-01-19] MEDS: CARVedilol 12.5 MG TAB PO SCH (08:05)
[2020-01-19] MEDS: OMEPRAZOLE 20 MG CAP PO SCH (08:05)
[2020-01-19] MEDS: MULTIVITAMINS/MINERALS THERAP 1 TAB PO SCH (08:05)
[2020-01-19] MEDS: ASCORBIC ACID 500 MG TAB PO SCH (08:05)
[2020-01-19] MEDS: ISOSORBIDE MON. (IMDUR) 30 MG XR TAB PO SCH (08:05)
[2020-01-19] MEDS: MOM 30ML SUSPENSION UDC PO SCH (08:05)
[2020-01-19] MEDS: BRIMONIDINE 0.1% OPHTH SOLN 5 ML OU SCH ×2 (08:06→21:38)
[2020-01-19] MEDS: HumaLOG INSULIN (NovoLOG) PER UNIT SC SCH ×4 (08:06→20:44)
[2020-01-19] MEDS: MORPHINE 2 MG/ML 1ML VIAL (J2270) IV PRN (09:52)
[2020-01-19] MEDS: ONDANSETRON 4MG/2ML VIAL IV PRN (09:52)
[2020-01-19 14:00] VITALS: BP 129/62
[2020-01-19] MEDS: RIVAROXABAN 10 MG TAB (XARELTO) PO SCH (18:49)
[2020-01-19] MEDS: LATANOPROST 0.005% OPHTH SOLN 2.5 ML OU SCH (21:38)
[2020-01-19] MEDS: CARVedilol 6.25 MG TAB PO SCH (21:38)
[2020-01-19] MEDS: LEVEMIR (INSULIN DETEMIR) 1 UNITS/0.01ML SC SCH (21:38)
[2020-01-19 22:00] VITALS: BP 125/63
[2020-01-20] MEDS: traMADol 50 MG TAB PO PRN ×3 (03:53→18:09)
[2020-01-20] MEDS: ACETAMINOPHEN 500 MG TAB PO SCH ×3 (05:20→21:50)
[2020-01-20 06:00] VITALS: BP 128/66
[2020-01-20 06:17] LABS: BASO % 0.2 % (0.0-1.0); EOS % 0.2 % (0.0-3.0); HEMATOCRIT 32.4 % (36.0-47.0); HEMOGLOBIN 10.5 g/dl (12.0-15.5); LYMPH # 1.7 10^3/uL (1.5-5.0); LYMPH % 14.3 % (24.0-44.0); MEAN CORPUSCULAR HEMOGLOBIN 31.6 pg (27.0-33.0); MEAN CORPUSCULAR HGB CONC 32.4 g/dl (32.0-36.5); MEAN CORPUSCULAR VOLUME 97.6 fl (80.0-96.0); MONO # 1.9 10^3/uL (0.0-0.8); MONO % 16.5 % (0.0-5.0); NEUTROPHILS # 7.9 10^3/uL (1.5-8.5); NEUTROPHILS % 68.3 % (36.0-66.0); PLATELET COUNT, AUTOMATED 160 10^3/uL (150-450); RED BLOOD COUNT 3.32 10^6/uL (4.00-5.40); WHITE BLOOD COUNT 11.5 10^3/uL (4.0-10.0)
[2020-01-20 06:45] LABS: BLOOD UREA NITROGEN 24 MG/DL (7-18); CALCIUM LEVEL 8.8 MG/DL (8.8-10.2); CARBON DIOXIDE LEVEL 32 MEQ/L (21-32); CHLORIDE LEVEL 102 MEQ/L (98-107); CREATININE FOR GFR 0.67 MG/DL (0.55-1.30); GLOMERULAR FILTRATION RATE > 60.0 (>32); GLUCOSE, FASTING 147 MG/DL (70-100); MAGNESIUM LEVEL 2.2 MG/DL (1.8-2.4); SODIUM LEVEL 137 MEQ/L (136-145)
[2020-01-20] MEDS: HumaLOG INSULIN (NovoLOG) PER UNIT SC SCH ×4 (07:30→20:35)
[2020-01-20] MEDS: MOM 30ML SUSPENSION UDC PO SCH (08:38)
[2020-01-20] MEDS: MIRALAX *UNIT DOSE* 17GM PACKET PO SCH (08:38)
[2020-01-20] MEDS: BRIMONIDINE 0.1% OPHTH SOLN 5 ML OU SCH ×2 (08:39→21:50)
[2020-01-20] MEDS: ASCORBIC ACID 500 MG TAB PO SCH (08:39)
[2020-01-20] MEDS: ISOSORBIDE MON. (IMDUR) 30 MG XR TAB PO SCH (08:39)
[2020-01-20] MEDS: levETIRAcetam 250MG TABLET (KEPPRA) PO SCH (08:39)
[2020-01-20] MEDS: MULTIVITAMINS/MINERALS THERAP 1 TAB PO SCH (08:39)
[2020-01-20] MEDS: VITAMIN D 1,000 INTERNATIONAL UNITS TABLET PO SCH (08:39)
[2020-01-20] MEDS: OMEPRAZOLE 20 MG CAP PO SCH (08:39)
[2020-01-20] MEDS: CARVedilol 12.5 MG TAB PO SCH (09:40)
[2020-01-20] MEDS: MORPHINE 15 MG SA TAB PO SCH ×2 (10:53→21:49)
--- NOTE | 2020-01-20 11:15 | RO ---
DATE OF PROCEDURE: 01/18/2020 PREOPERATIVE DIAGNOSIS: Right hip osteoarthritis. POSTOPERATIVE DIAGNOSIS: Right hip osteoarthritis. PROCEDURE: Right total hip arthroplasty using a [place] size 7 high offset +1.5 36 ball and a 52 acetabular component, and this was a ceramic head. SURGEON: Mic Silveira MD HOME HEALTH AIDE CAREGIVER: MAISHA Villanueva ANESTHESIA: Spinal. ESTIMATED BLOOD LOSS: 200. COMPLICATIONS: None. INDICATIONS: This is an 84-year-old who has had some persistent hip pain that has been refractory to conservative management. She wished proceed with surgery. There was a questionable nickel allergy, so we elected to use a ceramic head to be on the safe side. DESCRIPTION OF PROCEDURE: The patient was taken to the operating room and placed in a left lateral decubitus position on the [place] positioner. The right hip was prepped and draped in usual sterile fashion. Time-out was performed. I then created a longitudinal incision over the lateral aspect of the hip and sharp dissection was carried down to subcutaneous tissue, controlled hemostasis with cautery. I then incised the fascia cherry, exposed the abductors and divided the anterior 40% of the abductor off of the hip as we gradually exposed the femoral neck and then dislocated the head without difficulty. Put the leg in the bag. I used a canal initiating reamer, the canal finding reamer, the lateralizing reamer and then sequentially reamed up to a size 7, which is what we had templated. I made the neck cut about 1/2 to 3/4 of a fingerbreadth up from the lesser trochanter. The head was removed. I then prepared the acetabulum. Soft tissue was removed from around the acetabulum. There was copious soft tissue and controlled hemostasis with a cautery. I then sequentially reamed up to a size 51. I had medialized it some degree to get down to the floor. The overall position looked good. There was good bleeding bone. I then impacted in a 52 acetabular component in the appropriate amount of anteversion and horizontal tilt. The liner was then inserted, a 36 x 52 liner, and this was impacted in place. Made sure it was seated. I irrigated multiple times prior to this. I then removed osteophytes from the anterior and posterior aspect the acetabulum. We directed our attention back to the femur and sequentially broached up to a size 7, which had excellent fit and fill. There were no fractures noted. I then trialed off this with a standard 1.5 and the high offset 1.5, and I decided to go the high offset. She did have somewhat of a high offset anatomy on her x-rays, and I did medialized the acetabulum to some degree. Once I was satisfied with the trial components, I then removed them. Irrigated again. Impacted in the size 7 high offset stem and made sure this was well seated. I then placed the 36 +1.5 ceramic ball. Impacted this in place. Reduced the hip. Put the hip through range of motion and was very pleased with the stability and soft tissue tension. There was minimal shuck in full extension. There was no impingement. I then irrigated copiously, placed the Exparel and the tranexamic acid (TXA) in the deep tissues, repaired the minimus with #1 Vicryl suture and the abductor with #1 Vicryl suture through several bony holes. I then irrigated, closed the fascia with #1 Vicryl suture in running Stratafix in both directions. I used a second Stratafix suture in the subcutaneous tissue due to her morbid obesity to close this layer. I then repaired the subcu with #2-0 Vicryl and the skin with tony. Sterile dressing was applied. She was taken to recovery room in stable condition. There were no known complications. The plan will be routine post-op. The technical support assistant was instrumental in holding retractors and assisting in reducing and dislocating the hip, and assisting in wound closure.
[2020-01-20 14:00] VITALS: BP 122/69
[2020-01-20] MEDS: RIVAROXABAN 10 MG TAB (XARELTO) PO SCH (18:09)
[2020-01-20] MEDS ORDERED: POLYETHYLENE GLYCOL (MIRALAX) 238GM BOTTLE PO ONE (19:45)
[2020-01-20] MEDS ORDERED: MIRALAX *UNIT DOSE* 17GM PACKET PO ONE (21:00)
[2020-01-20] MEDS: LEVEMIR (INSULIN DETEMIR) 1 UNITS/0.01ML SC SCH (21:50)
[2020-01-20] MEDS: LATANOPROST 0.005% OPHTH SOLN 2.5 ML OU SCH (21:50)
[2020-01-20] MEDS: CARVedilol 6.25 MG TAB PO SCH (21:50)
[2020-01-20 22:00] VITALS: BP 120/65
[2020-01-21] MEDS: ACETAMINOPHEN 500 MG TAB PO SCH ×3 (05:44→22:48)
[2020-01-21 06:00] VITALS: BP 127/67
[2020-01-21 06:34] LABS: BASO % 0.2 % (0.0-1.0); EOS # 0.1 10^3/uL (0.0-0.5); EOS % 1.3 % (0.0-3.0); HEMATOCRIT 30.8 % (36.0-47.0); HEMOGLOBIN 9.9 g/dl (12.0-15.5); LYMPH % 18.2 % (24.0-44.0); MEAN CORPUSCULAR HEMOGLOBIN 31.6 pg (27.0-33.0); MEAN CORPUSCULAR HGB CONC 32.1 g/dl (32.0-36.5); MEAN CORPUSCULAR VOLUME 98.4 fl (80.0-96.0); MONO # 1.7 10^3/uL (0.0-0.8); NEUTROPHILS # 6.8 10^3/uL (1.5-8.5); NEUTROPHILS % 63.6 % (36.0-66.0); PLATELET COUNT, AUTOMATED 174 10^3/uL (150-450); RED BLOOD COUNT 3.13 10^6/uL (4.00-5.40); WHITE BLOOD COUNT 10.7 10^3/uL (4.0-10.0)
[2020-01-21] MEDS ORDERED: TRAM50TA2 PO (06:34)
[2020-01-21] MEDS ORDERED: XARE10TA PO (06:34)
[2020-01-21] MEDS ORDERED: MORP15TASA PO (06:34)
[2020-01-21 07:02] LABS: BLOOD UREA NITROGEN 29 MG/DL (7-18); CALCIUM LEVEL 8.6 MG/DL (8.8-10.2); CARBON DIOXIDE LEVEL 34 MEQ/L (21-32); CHLORIDE LEVEL 100 MEQ/L (98-107); CREATININE FOR GFR 0.78 MG/DL (0.55-1.30); GLOMERULAR FILTRATION RATE > 60.0 (>32); GLUCOSE, FASTING 145 MG/DL (70-100); MAGNESIUM LEVEL 2.1 MG/DL (1.8-2.4); POTASSIUM SERUM 4.4 MEQ/L (3.5-5.1); SODIUM LEVEL 138 MEQ/L (136-145)
[2020-01-21] MEDS: VITAMIN D 1,000 INTERNATIONAL UNITS TABLET PO SCH (08:18)
[2020-01-21] MEDS: MORPHINE 15 MG SA TAB PO SCH ×2 (08:18→21:23)
[2020-01-21] MEDS: ISOSORBIDE MON. (IMDUR) 30 MG XR TAB PO SCH (08:19)
[2020-01-21] MEDS: OMEPRAZOLE 20 MG CAP PO SCH (08:19)
[2020-01-21] MEDS: HumaLOG INSULIN (NovoLOG) PER UNIT SC SCH ×4 (08:19→21:00)
[2020-01-21] MEDS: levETIRAcetam 250MG TABLET (KEPPRA) PO SCH (08:19)
[2020-01-21] MEDS: CARVedilol 12.5 MG TAB PO SCH (08:19)
[2020-01-21] MEDS: ASCORBIC ACID 500 MG TAB PO SCH (08:19)
[2020-01-21] MEDS: MULTIVITAMINS/MINERALS THERAP 1 TAB PO SCH (08:19)
[2020-01-21] MEDS: MOM 30ML SUSPENSION UDC PO SCH (08:20)
[2020-01-21] MEDS: MIRALAX *UNIT DOSE* 17GM PACKET PO SCH (08:20)
[2020-01-21] MEDS: BRIMONIDINE 0.1% OPHTH SOLN 5 ML OU SCH ×2 (08:39→21:23)
[2020-01-21 14:00] VITALS: BP 123/66
[2020-01-21] MEDS ORDERED: LACTULOSE 20 GM/30 ML SYRUP UD PO ONE (14:00)
[2020-01-21] MEDS ORDERED: BISACODYL 10 MG SUPP PR ONE (15:45)
[2020-01-21] MEDS: RIVAROXABAN 10 MG TAB (XARELTO) PO SCH (17:25)
[2020-01-21] MEDS: traMADol 50 MG TAB PO PRN (17:26)
[2020-01-21] MEDS: LEVEMIR (INSULIN DETEMIR) 1 UNITS/0.01ML SC SCH (21:22)
[2020-01-21] MEDS: CARVedilol 6.25 MG TAB PO SCH (21:22)
[2020-01-21] MEDS: LATANOPROST 0.005% OPHTH SOLN 2.5 ML OU SCH (21:23)
[2020-01-21 22:00] VITALS: BP 121/66
[2020-01-22] MEDS: ACETAMINOPHEN 500 MG TAB PO SCH ×3 (05:55→22:10)
[2020-01-22 06:00] VITALS: BP 121/65
[2020-01-22 06:34] LABS: BASO % 0.4 % (0.0-1.0); EOS # 0.4 10^3/uL (0.0-0.5); EOS % 4.4 % (0.0-3.0); HEMOGLOBIN 9.4 g/dl (12.0-15.5); LYMPH # 1.5 10^3/uL (1.5-5.0); LYMPH % 17.7 % (24.0-44.0); MEAN CORPUSCULAR HEMOGLOBIN 32.1 pg (27.0-33.0); MEAN CORPUSCULAR HGB CONC 32.4 g/dl (32.0-36.5); MONO # 1.3 10^3/uL (0.0-0.8); MONO % 15.2 % (0.0-5.0); NEUTROPHILS # 5.2 10^3/uL (1.5-8.5); NEUTROPHILS % 61.8 % (36.0-66.0); PLATELET COUNT, AUTOMATED 189 10^3/uL (150-450); RED BLOOD COUNT 2.93 10^6/uL (4.00-5.40); WHITE BLOOD COUNT 8.4 10^3/uL (4.0-10.0)
[2020-01-22] MEDS ORDERED: MAGNESIUM CITRATE 300 ML BTL PO ONE (06:45)
[2020-01-22 06:52] LABS: BLOOD UREA NITROGEN 31 MG/DL (7-18); CALCIUM LEVEL 8.4 MG/DL (8.8-10.2); CARBON DIOXIDE LEVEL 36 MEQ/L (21-32); CHLORIDE LEVEL 99 MEQ/L (98-107); CREATININE FOR GFR 0.67 MG/DL (0.55-1.30); GLOMERULAR FILTRATION RATE > 60.0 (>32); GLUCOSE, FASTING 152 MG/DL (70-100); MAGNESIUM LEVEL 2.4 MG/DL (1.8-2.4); POTASSIUM SERUM 4.2 MEQ/L (3.5-5.1); SODIUM LEVEL 136 MEQ/L (136-145)
[2020-01-22] MEDS: BISACODYL 10 MG SUPP PR SCH ×2 (07:06→20:33)
[2020-01-22] MEDS: levETIRAcetam 250MG TABLET (KEPPRA) PO SCH (08:57)
[2020-01-22] MEDS: MOM 30ML SUSPENSION UDC PO SCH (09:00)
[2020-01-22] MEDS ORDERED: BISACODYL 10 MG SUPP PR SCH (09:00)
[2020-01-22] MEDS: MIRALAX *UNIT DOSE* 17GM PACKET PO SCH (09:00)
[2020-01-22] MEDS: OMEPRAZOLE 20 MG CAP PO SCH (09:01)
[2020-01-22] MEDS: CARVedilol 12.5 MG TAB PO SCH (09:01)
[2020-01-22] MEDS: MORPHINE 15 MG SA TAB PO SCH ×2 (09:01→20:32)
[2020-01-22] MEDS: HumaLOG INSULIN (NovoLOG) PER UNIT SC SCH ×4 (09:02→20:33)
[2020-01-22] MEDS: ISOSORBIDE MON. (IMDUR) 30 MG XR TAB PO SCH (09:02)
[2020-01-22] MEDS: VITAMIN D 1,000 INTERNATIONAL UNITS TABLET PO SCH (09:02)
[2020-01-22] MEDS: BRIMONIDINE 0.1% OPHTH SOLN 5 ML OU SCH ×2 (09:02→20:31)
[2020-01-22] MEDS: ASCORBIC ACID 500 MG TAB PO SCH (09:02)
[2020-01-22] MEDS: MULTIVITAMINS/MINERALS THERAP 1 TAB PO SCH (09:02)
[2020-01-22] MEDS ORDERED: CLIN150C14 PO (10:06)
[2020-01-22] MEDS: traMADol 50 MG TAB PO PRN ×2 (11:57→16:24)
[2020-01-22 14:00] VITALS: BP 121/68
[2020-01-22] MEDS: CLINDAMYCIN 150MG CAPSULE PO SCH ×2 (14:37→22:10)
[2020-01-22] MEDS: RIVAROXABAN 10 MG TAB (XARELTO) PO SCH (17:45)
[2020-01-22] MEDS: LATANOPROST 0.005% OPHTH SOLN 2.5 ML OU SCH (20:31)
[2020-01-22] MEDS: CARVedilol 6.25 MG TAB PO SCH (20:32)
[2020-01-22] MEDS: LEVEMIR (INSULIN DETEMIR) 1 UNITS/0.01ML SC SCH (20:32)
[2020-01-22 22:00] VITALS: BP 136/62
[2020-01-23] MEDS: traMADol 50 MG TAB PO PRN ×3 (02:44→16:46)
[2020-01-23] MEDS: CLINDAMYCIN 150MG CAPSULE PO SCH ×3 (05:29→21:45)
[2020-01-23] MEDS: ACETAMINOPHEN 500 MG TAB PO SCH ×3 (05:30→21:45)
[2020-01-23 06:00] VITALS: BP 127/66
[2020-01-23 07:08] LABS: BASO % 0.4 % (0.0-1.0); EOS # 0.4 10^3/uL (0.0-0.5); EOS % 4.9 % (0.0-3.0); HEMATOCRIT 29.1 % (36.0-47.0); HEMOGLOBIN 9.5 g/dl (12.0-15.5); LYMPH # 1.5 10^3/uL (1.5-5.0); LYMPH % 20.5 % (24.0-44.0); MEAN CORPUSCULAR HEMOGLOBIN 32.3 pg (27.0-33.0); MEAN CORPUSCULAR HGB CONC 32.6 g/dl (32.0-36.5); MONO # 1.2 10^3/uL (0.0-0.8); MONO % 16.6 % (0.0-5.0); NEUTROPHILS # 4.2 10^3/uL (1.5-8.5); NEUTROPHILS % 56.9 % (36.0-66.0); PLATELET COUNT, AUTOMATED 224 10^3/uL (150-450); RED BLOOD COUNT 2.94 10^6/uL (4.00-5.40); WHITE BLOOD COUNT 7.4 10^3/uL (4.0-10.0)
[2020-01-23 07:32] LABS: ERYTHROCYTE SEDIMENTATION RATE > 140 mm/hr (0-30)
[2020-01-23 07:33] LABS: BLOOD UREA NITROGEN 31 MG/DL (7-18); CALCIUM LEVEL 8.5 MG/DL (8.8-10.2); CARBON DIOXIDE LEVEL 35 MEQ/L (21-32); CHLORIDE LEVEL 99 MEQ/L (98-107); CREATININE FOR GFR 0.64 MG/DL (0.55-1.30); GLOMERULAR FILTRATION RATE > 60.0 (>32); GLUCOSE, FASTING 142 MG/DL (70-100); MAGNESIUM LEVEL 2.6 MG/DL (1.8-2.4); POTASSIUM SERUM 4.5 MEQ/L (3.5-5.1); SODIUM LEVEL 137 MEQ/L (136-145)
[2020-01-23] MEDS: MULTIVITAMINS/MINERALS THERAP 1 TAB PO SCH (08:09)
[2020-01-23] MEDS: HumaLOG INSULIN (NovoLOG) PER UNIT SC SCH ×4 (08:09→20:09)
[2020-01-23] MEDS: VITAMIN D 1,000 INTERNATIONAL UNITS TABLET PO SCH (08:09)
[2020-01-23] MEDS: ASCORBIC ACID 500 MG TAB PO SCH (08:09)
[2020-01-23] MEDS: OMEPRAZOLE 20 MG CAP PO SCH (08:09)
[2020-01-23] MEDS: ISOSORBIDE MON. (IMDUR) 30 MG XR TAB PO SCH (08:09)
[2020-01-23] MEDS: levETIRAcetam 250MG TABLET (KEPPRA) PO SCH (08:09)
[2020-01-23] MEDS: MOM 30ML SUSPENSION UDC PO SCH (08:10)
[2020-01-23] MEDS: BRIMONIDINE 0.1% OPHTH SOLN 5 ML OU SCH ×2 (08:10→20:08)
[2020-01-23] MEDS: CARVedilol 12.5 MG TAB PO SCH (08:10)
[2020-01-23] MEDS: MORPHINE 15 MG SA TAB PO SCH ×2 (08:10→20:09)
[2020-01-23] MEDS: MIRALAX *UNIT DOSE* 17GM PACKET PO SCH (08:10)
[2020-01-23] MEDS: BISACODYL 10 MG SUPP PR SCH ×2 (08:11→20:09)
--- NOTE | 2020-01-23 13:29 | IPNPDOC ---
Date Seen The patient was seen on 01/23/20. Progress Note SUBJECTIVE: Patient reports pain of the R. hip over the site of surgery, appears uncomfor table this morning but otherwise denies any other complaints apart from pain. Denies any fever, chills, nausea, vomiting. R. wound with staple appear clean. There is a small area of about 2x3 cm of skin tear below the incision site, erythematous but clean, no pus or evidence of infection. Patient was supposed to be discharged home yesterday but is staying over the weekend to monitor wound on antibiotics. OBJECTIVE PHYSICAL EXAMINATION: VITAL SIGNS: Please see below. General: Alert, mild to moderate distress Eyes: Normal sclera, EOMI HENT: Atraumatic Cardiovascular: Normal rate, normal rhythm. Pulmonary: Clear to auscultation b/l, no wheezing GI: Soft, nontender, nondistended Skin: R. hip with long linear surgical site with surgical tony. Wound is clean and dry, no discharge. Overall R. hip is swollen and erythematous compare to L. Small area of skin tear 2x3 cm about 2 inches or so below the site of tony. Neuro: CN grossly intact. No focal deficits. Psych: oriented x 3 LABORATORY DATA, IMAGING STUDIES, MICROBIOLOGY: Please see below. DVT prophylaxis ordered?: Laura ASSESSMENT AND PLAN: 1. R. hip OA s/p Total R. hip arthroplasty - Monitored by ortho. To continue follow up. - Pain control. - Initially plan for discharge on 01/21 but held over the weekend for concern of suspicious wound site. Started on clindamycin. - PT/OT. 2. CAD - c/w coreg and Isosorvide mononitrate. - ASA has been held post op. 3. HTN - BP controlled. c/w coreg. 4. IDDM - BS satisfactory. c/w levemir 16 units qHS and ISS. 5. Seizure disorder - stable. c/w keppra. DISPOSITION: Likely home on Saturday per ortho team's evaluation. I will not be on service after today. Please call hospitalist off [facility] list if needed. VS, I&O, 24H, Fishbone Vital Signs/I&O Vital Signs Date Time Temp Pulse Resp B/P (MAP) Pulse Ox O2 Delivery O2 Flow Rate FiO2 01/23/20 11:45 16 01/23/20 08:10 75 127/66 01/23/20 08:00 2.0 01/23/20 06:00 98.1 96 Nasal Cannula I&O- Last 24 Hours up to 6 AM 01/23/20 06:00 Intake Total 1690 ml Output Total 850 ml Balance 840 ml Laboratory Data 24H LABS Laboratory Tests 2 01/22/20 16:19: Bedside Glucose (Misc Panel) 145H 01/22/20 20:29: Bedside Glucose (Misc Panel) 193H 01/23/20 06:20: Immature Granulocyte % (Auto) 0.7, Neutrophils (%) (Auto) 56.9, Lymphocytes (%) (Auto) 20.5L, Monocytes (%) (Auto) 16.6H, Eosinophils (%) (Auto) 4.9H, Basophils (%) (Auto) 0.4, Neutrophils # (Auto) 4.2, Lymphocytes # (Auto) 1.5, Monocytes # (Auto) 1.2H, Eosinophils # (Auto) 0.4, Basophils # (Auto) 0.0, Nucleated Red Blood Cells % (auto) 0.0, Erythrocyte Sedimentation Rate > 140H, Anion Gap 3L, Glomerular Filtration Rate > 60.0, Calcium Level 8.5L, Magnesium Level 2.6H, C- Reactive Protein, Quantitative 15.70H 01/23/20 11:39: Bedside Glucose (Misc Panel) 167H CBC/BMP Laboratory Tests 01/23/20 06:20 Microbiology Microbiology 01/21/20 Respiratory Virus Panel (PCR) ([facility]) - Final, Complete TU KHOURY MD Jan 23, 2020 13:29
[2020-01-23 13:56] VITALS: BP 111/64
[2020-01-23] MEDS: CALCIUM CARBONATE 500 MG CHEW U/D PO PRN ×2 (16:46→21:45)
[2020-01-23] MEDS: RIVAROXABAN 10 MG TAB (XARELTO) PO SCH (17:59)
[2020-01-23] MEDS: CARVedilol 6.25 MG TAB PO SCH (20:08)
[2020-01-23] MEDS: LEVEMIR (INSULIN DETEMIR) 1 UNITS/0.01ML SC SCH (20:08)
[2020-01-23] MEDS: LATANOPROST 0.005% OPHTH SOLN 2.5 ML OU SCH (20:09)
[2020-01-23 22:00] VITALS: BP 113/70
[2020-01-24] MEDS: traMADol 50 MG TAB PO PRN ×2 (01:57→10:23)
[2020-01-24] MEDS: CALCIUM CARBONATE 500 MG CHEW U/D PO PRN (05:18)
[2020-01-24] MEDS: ACETAMINOPHEN 500 MG TAB PO SCH ×3 (05:19→22:00)
[2020-01-24] MEDS: CLINDAMYCIN 150MG CAPSULE PO SCH (05:19)
[2020-01-24 06:00] VITALS: BP 120/68
[2020-01-24] MEDS ORDERED: VANCOMYCIN HCL 1,000 MG, VIAL MATE ADAPTER 1 EACH in D5W 250 ML IV ONE (07:00)
--- NOTE | 2020-01-24 07:31 | IPNPDOC ---
Subjective Date Seen The patient was seen on 01/24/20. Subjective Chief Complaint/HPI Ms. Martin is still in quite a bit of discomfort from her hip. I spoke directly with Rick Malone NP from the Ortho service and she said that her impression is that the area is more firm and tender than it was even yesterday. She intends to change to antibiotic to vancomycin (from clindamycin). Ortho does NOT think that a discharge or transfer tomorrow is likely based on her poor clinical progression. There are NO cultures pending as the tony and skin are reasonably intact and so there is not a way to get a deep culture; she does not seem systemically ill enough to justify BCx at this time. She is not doing very well with P/T per nursing and the patient confirms that this causes her quite a bit of discomfort. She does not have a urinary catheter in, there is an IS at bedside (but she may not be using it as frequently as she should). She reports that her BGLs at home are usually in the 130s range. Pulmonary: Denies: Dyspnea, Cough Cardiovascular: Denies: Chest Pain, Palpitations Gastrointestinal: Denies: Abdominal Pain, Diarrhea, Constipation Genitourinary: Denies: Dysuria Hematologic: Denies: Bleeding Excessively Endocrine: Denies: Polydipsia, Polyphagia, Polyuria Musculoskeletal: Reports: Joint Pain (around her right hip) Objective Physical Examination General Exam: Positive: Alert, Cooperative; Negative: No Acute Distress (in some pain, but not in clinical distress) Eye Exam: Negative: Sclera icteric ENT Exam: Negative: Mucous membr. moist/pink (slightly dry (~5% dehydrated)) Neck Exam: Negative: Lymphadenopathy Chest Exam: Positive: Normal air movement, Rales (at the bilateral bases, but they clear when she sits up and takes several deep breaths) Heart Exam: Positive: Rate Normal, Normal S1, Normal S2; Negative: Murmurs Abdomen Exam: Positive: Normal bowel sounds, Soft; Negative: Tenderness Extremity Exam: Positive: Tenderness (near surgical site), Swelling Skin Exam: Positive: Other skin issue (with moderate erythema and induration roughly 3cm surrounding the staple line on the R hip, not clearly demarkated) Psych Exam: Positive: Oriented x 3; Negative: Mood NL (seems a little situationally depressed as her recovery isn't going as well as she'd like) Assessment /Plan Problems (1) S/P total hip arthroplasty Discussed With: Nurse, Airborne And Air Delivery Specialist, Patient Problem Specific Plan: Monitor Clinically, Repeat Labs Problem Text: POD #4. There is concern for a cellulitis developing around the surgical site and this is delaying the discharge while we sort this out. Ortho managing pain, anticoagulation, bowel care and P/T. (2) Cellulitis and abscess of right leg Status: Acute Response to Treatment: Worse Discussed With: Nurse, Airborne And Air Delivery Specialist, Patient Problem Specific Plan: Monitor Clinically, Repeat Labs Problem Text: 24h Tmax 99.5. Ortho has changed her emperic abx from clindamycin to vancomycin today. Will monitor response. Based on the clinical examination a Staph is certainly possible (maybe early infection or partially treated), but we should keep Strep or other coagulase negative organisms in mind too based on the clinical exam. I will make sure that there is a CBCd and repeat CRP for trending on for tomorrow. (3) DM type 2 (diabetes mellitus, type 2) Status: Chronic Discussed With: Nurse, Patient Problem Text: She is on 16 units of basal insulin and has used 6 units of ISS in the last 24h. I will add 3 more units to her basal insulin for tonight to see if we can reduce her ISS use a little. This may have to be reduced as the physiologic stress of the infection reduces. (4) CAD (coronary artery disease) Status: Chronic Response to Treatment: Stable Problem Specific Plan: Monitor Clinically Problem Text: Clinically stable, continue current regimen, monitor. (5) HTN (hypertension) Status: Chronic Problem Text: Well controlled. Continue current regimen, monitor. (6) Seizure disorder Status: Chronic Response to Treatment: Stable Problem Text: Stable on Keppra. Continue current medication, monitor. Plan/VTE VTE Prophylaxis Ordered?: Yes (per ortho) Plan Therapy: PT Advance Directives: Other Advance Directive (This has not been documented, but the patient is clear she wants to be FULL CODE. I asked whether she wants to fill out the full MOLST form with me or if she'd rather do that with Dr. Garsia. She prefers to do this with him, but asks that I put the FULL CODE order in for this admission.) VS, I&O, 24H, Fishbone Vital Signs/I&O Vital Signs Date Time Temp Pulse Resp B/P (MAP) Pulse Ox O2 Delivery O2 Flow Rate FiO2 01/24/20 06:00 98.5 79 18 120/68 (85) 94 Nasal Cannula 2.0 I&O- Last 24 Hours up to 6 AM 01/24/20 06:00 Intake Total 720 ml Output Total 550 ml Balance 170 ml Laboratory Data 24H LABS Laboratory Tests 2 01/23/20 11:39: Bedside Glucose (Misc Panel) 167H 01/23/20 17:06: Bedside Glucose (Misc Panel) 183H 01/23/20 19:50: Bedside Glucose (Misc Panel) 159H Microbiology Microbiology 01/21/20 Respiratory Virus Panel (PCR) ([facility]) - Final, Complete Jimmie Lares MD Jan 24, 2020 07:31
[2020-01-24] MEDS: HumaLOG INSULIN (NovoLOG) PER UNIT SC SCH ×4 (08:18→20:56)
[2020-01-24] MEDS: levETIRAcetam 250MG TABLET (KEPPRA) PO SCH (08:18)
[2020-01-24] MEDS: ASCORBIC ACID 500 MG TAB PO SCH (08:18)
[2020-01-24] MEDS: VITAMIN D 1,000 INTERNATIONAL UNITS TABLET PO SCH (08:18)
[2020-01-24] MEDS: CARVedilol 12.5 MG TAB PO SCH (08:19)
[2020-01-24] MEDS: OMEPRAZOLE 20 MG CAP PO SCH (08:19)
[2020-01-24] MEDS: MULTIVITAMINS/MINERALS THERAP 1 TAB PO SCH (08:19)
[2020-01-24] MEDS: MORPHINE 15 MG SA TAB PO SCH ×2 (08:19→20:55)
[2020-01-24] MEDS: ISOSORBIDE MON. (IMDUR) 30 MG XR TAB PO SCH (08:19)
[2020-01-24] MEDS: BISACODYL 10 MG SUPP PR SCH ×2 (08:20→20:56)
[2020-01-24] MEDS: MOM 30ML SUSPENSION UDC PO SCH (08:20)
[2020-01-24] MEDS: BRIMONIDINE 0.1% OPHTH SOLN 5 ML OU SCH ×2 (08:20→20:56)
[2020-01-24] MEDS: MIRALAX *UNIT DOSE* 17GM PACKET PO SCH (08:20)
[2020-01-24 08:24] LABS: BASO % 0.5 % (0.0-1.0); EOS # 0.3 10^3/uL (0.0-0.5); EOS % 3.9 % (0.0-3.0); HEMATOCRIT 29.6 % (36.0-47.0); HEMOGLOBIN 9.6 g/dl (12.0-15.5); LYMPH # 1.4 10^3/uL (1.5-5.0); LYMPH % 17.1 % (24.0-44.0); MEAN CORPUSCULAR HEMOGLOBIN 31.9 pg (27.0-33.0); MEAN CORPUSCULAR HGB CONC 32.4 g/dl (32.0-36.5); MEAN CORPUSCULAR VOLUME 98.3 fl (80.0-96.0); MONO # 1.3 10^3/uL (0.0-0.8); MONO % 16.4 % (0.0-5.0); NEUTROPHILS # 4.8 10^3/uL (1.5-8.5); NEUTROPHILS % 60.5 % (36.0-66.0); PLATELET COUNT, AUTOMATED 249 10^3/uL (150-450); RED BLOOD COUNT 3.01 10^6/uL (4.00-5.40); WHITE BLOOD COUNT 7.9 10^3/uL (4.0-10.0)
[2020-01-24 09:00] LABS: BLOOD UREA NITROGEN 26 MG/DL (7-18); CALCIUM LEVEL 8.5 MG/DL (8.8-10.2); CARBON DIOXIDE LEVEL 36 MEQ/L (21-32); CHLORIDE LEVEL 99 MEQ/L (98-107); CREATININE FOR GFR 0.59 MG/DL (0.55-1.30); GLOMERULAR FILTRATION RATE > 60.0 (>32); GLUCOSE, FASTING 174 MG/DL (70-100); MAGNESIUM LEVEL 2.3 MG/DL (1.8-2.4); POTASSIUM SERUM 4.5 MEQ/L (3.5-5.1); SODIUM LEVEL 138 MEQ/L (136-145)
[2020-01-24 14:00] VITALS: BP 107/65
[2020-01-24] MEDS: RIVAROXABAN 10 MG TAB (XARELTO) PO SCH (17:08)
[2020-01-24] MEDS ORDERED: VANCOMYCIN HCL 1,000 MG, VIAL MATE ADAPTER 1 EACH in D5W 250 ML IV SCH (20:00)
[2020-01-24] MEDS: CARVedilol 6.25 MG TAB PO SCH (20:56)
[2020-01-24] MEDS: LATANOPROST 0.005% OPHTH SOLN 2.5 ML OU SCH (20:56)
[2020-01-24] MEDS ORDERED: LEVEMIR (INSULIN DETEMIR) 1 UNITS/0.01ML SC SCH (21:00)
[2020-01-24 22:00] VITALS: BP 109/65
[2020-01-25] MEDS: traMADol 50 MG TAB PO PRN ×2 (00:45→09:57)
--- NOTE | 2020-01-25 01:58 | PHACANCOPD ---
PHARMACY VANCOMYCIN DOSING Pt Demographics Demographics Patient Age:84 , Weight:87.090 , Gender: female Adjusted Body Weight Date: 01/25/20, Adjusted Body Weight: [64.9] Kg Vancomycin Vancomycin indication: post hip fx infection Vancomycin Target Ranges: 10-20 mcg/ml Vancomycin Load Y/N: No Load Dose Date Time Vancomycin Load Dose: Date: Time: Vancomycin Dose Date: 01/25/20. Current Vancomycin Dose: [1 gm q24h] Intermittent Dosing?: No Labs Micro Microbiology 01/21/20 Respiratory Virus Panel (PCR) ([facility]) - Final, Complete Creatinine Clearance Date:01/25/20. Creatinine Clearance: [43.7].calculated Assessment and Plan Maintaining Current Dose?: Yes Reason for dose change: No Dose Change Pharmacist Note Pharmacist Note Date: 01/25/20. Pharmacist note:Pharmacy dosed Vancomycin ordered for 84 YOF post hip FX D/T poor clinical progression while on Clindamycin. Ht:62",Wt:87.09kg( ABW=64.9kg),SCR=0.64,CRCL=43.7.Vancomycin 1 gram administered 01/23@7:44, then will begin 1 gram IV [id number] to begin 01/23@20:00. (trough goal= 10-20)First trough is scheduled for 01/24@1900(prior to the 3rd dose). Will continue to follow and make adjustments as needed. LAVINIA CONTI [facility] Jan 25, 2020 01:58
[2020-01-25] MEDS: ACETAMINOPHEN 500 MG TAB PO SCH (05:04)
[2020-01-25 05:34] LABS: BASO # 0.1 10^3/uL (0.0-0.2); BASO % 0.7 % (0.0-1.0); EOS # 0.4 10^3/uL (0.0-0.5); EOS % 4.5 % (0.0-3.0); HEMATOCRIT 31.6 % (36.0-47.0); HEMOGLOBIN 10.1 g/dl (12.0-15.5); LYMPH # 1.7 10^3/uL (1.5-5.0); LYMPH % 20.1 % (24.0-44.0); MEAN CORPUSCULAR HEMOGLOBIN 31.3 pg (27.0-33.0); MEAN CORPUSCULAR VOLUME 97.8 fl (80.0-96.0); MONO # 1.2 10^3/uL (0.0-0.8); MONO % 13.6 % (0.0-5.0); NEUTROPHILS # 4.9 10^3/uL (1.5-8.5); NEUTROPHILS % 57.4 % (36.0-66.0); PLATELET COUNT, AUTOMATED 297 10^3/uL (150-450); RED BLOOD COUNT 3.23 10^6/uL (4.00-5.40); WHITE BLOOD COUNT 8.6 10^3/uL (4.0-10.0)
[2020-01-25 05:57] LABS: BLOOD UREA NITROGEN 18 MG/DL (7-18); C REACTIVE PROTEIN QUANTITATIV 8.88 MG/DL (0.00-0.30); CALCIUM LEVEL 8.5 MG/DL (8.8-10.2); CARBON DIOXIDE LEVEL 34 MEQ/L (21-32); CHLORIDE LEVEL 99 MEQ/L (98-107); CREATININE FOR GFR 0.59 MG/DL (0.55-1.30); GLOMERULAR FILTRATION RATE > 60.0 (>32); GLUCOSE, FASTING 145 MG/DL (70-100); MAGNESIUM LEVEL 2.2 MG/DL (1.8-2.4); POTASSIUM SERUM 4.5 MEQ/L (3.5-5.1); SODIUM LEVEL 138 MEQ/L (136-145)
[2020-01-25] MEDS ORDERED: XARE10TA PO (05:57)
[2020-01-25 06:00] VITALS: BP 113/63
[2020-01-25] MEDS: HumaLOG INSULIN (NovoLOG) PER UNIT SC SCH (08:17)
[2020-01-25] MEDS: levETIRAcetam 250MG TABLET (KEPPRA) PO SCH (08:17)
[2020-01-25] MEDS: ASCORBIC ACID 500 MG TAB PO SCH (08:17)
[2020-01-25 08:18] VITALS: BP 113/63
[2020-01-25] MEDS: MORPHINE 15 MG SA TAB PO SCH (08:18)
[2020-01-25] MEDS: VITAMIN D 1,000 INTERNATIONAL UNITS TABLET PO SCH (08:18)
[2020-01-25] MEDS: OMEPRAZOLE 20 MG CAP PO SCH (08:18)
[2020-01-25] MEDS: ISOSORBIDE MON. (IMDUR) 30 MG XR TAB PO SCH (08:18)
[2020-01-25] MEDS: MOM 30ML SUSPENSION UDC PO SCH (08:18)
[2020-01-25] MEDS: MULTIVITAMINS/MINERALS THERAP 1 TAB PO SCH (08:18)
[2020-01-25] MEDS: CARVedilol 12.5 MG TAB PO SCH (08:18)
[2020-01-25] MEDS: BISACODYL 10 MG SUPP PR SCH (08:19)
[2020-01-25] MEDS: MIRALAX *UNIT DOSE* 17GM PACKET PO SCH (08:19)
[2020-01-25] MEDS: BRIMONIDINE 0.1% OPHTH SOLN 5 ML OU SCH (09:48)
[2020-01-25] MEDS ORDERED: HYDROCORTISONE 1% CREAM 30 GM TOP SCH (10:30)
--- NOTE | 2020-01-25 11:42 | IPNPDOC ---
Text Note Date of Service The patient was seen on 01/25/20. NOTE Patient seen and examined. No overnight events. The surgical area is still te nder and antiemetics was switched by. She has not been able to perform a lot of PT, OT and is in a lot of discomfort when she is trying to do any activity. Physical Examination General Exam:Alert, Cooperative; Eye Exam:Sclera icteric ENT Exam:Mucous membrane moist/pink (slightly dry (~5% dehydrated)) Neck Exam:No Lymphadenopathy Chest Exam:Normal air movement, Rales (at the bilateral bases, but they clear when she sits up and takes several deep breaths) Heart Exam: Normal Rate , normal S1, S2 Abdomen Exam: Normal bowel sounds, Soft; Extremity Exam:Tenderness (near surgical site), Swelling Skin Exam: moderate erythema and induration roughly 3cm surrounding the staple line on the R hip Assessment and plan (1) S/P total hip arthroplasty: POD #5 . There is concern for a cellulitis developing around the surgical site and this is delaying the discharge while we sort this out. Ortho managing pain, anticoagulation, bowel care and P/T. (2) Cellulitis and abscess of right leg: Ortho has changed her emperic abx from clindamycin to vancomycin . Will monitor response. Repeat CBC, CMP and possible CRP, ESR in the next couple of days (3) DM type 2 (diabetes mellitus, type 2): She is on 16 units of basal insulin and has used 6 units of ISS in the last 24h. I will add 3 more units to her basal insulin for tonight to see if we can reduce her ISS use a little. This may have to be reduced as the physiologic stress of the infection reduces. (4) CAD (coronary artery disease): Clinically stable, continue current regimen, monitor. (5) HTN (hypertension): Well controlled. Continue current regimen, monitor. (6) Seizure disorder: Stable on Keppra. Continue current medication, monitor. DVT prophylaxis activity. Pain control as per primary orthopnea Disposition as per Ortho VS,Marge, I+O VS, [place], I+O Laboratory Tests 01/25/20 05:16 Vital Signs Date Time Temp Pulse Resp B/P (MAP) Pulse Ox O2 Delivery O2 Flow Rate FiO2 01/25/20 10:30 16 01/25/20 08:18 113/63 01/25/20 08:18 80 01/25/20 08:00 2.0 01/25/20 06:00 99.0 99 Nasal Cannula I&O- Last 24 Hours up to 6 AM 01/25/20 06:00 Intake Total 1480 ml Output Total 600 ml Balance 880 ml ALEXY PEÑA MD Jan 25, 2020 11:42
== END 2020-01-25 12:00 | DRG 470 ==
LOC: M OR 08:34 → M MS5PR 13:25
PROVIDERS: ADMIT Orthopaedic Surgery; ATTEND Orthopaedic Surgery
PROC: 0SR90JA Replacement of Right Hip Joint with Synthetic Substitute, Uncemented, Open Approach (ICD-10-PCS; principal; 2020-01-18 10:45)
DX: M16.11 Unilateral primary osteoarthritis, right hip (principal); L03.115 Cellulitis of right lower limb; T81.49XA Infection following a procedure, other surgical site, initial encounter; Z11.59 Encounter for screening for other viral diseases; K21.9 Gastro-esophageal reflux disease without esophagitis; E11.9 Type 2 diabetes mellitus without complications; I10 Essential (primary) hypertension; I25.2 Old myocardial infarction; Z88.0 Allergy status to penicillin; Z88.2 Allergy status to sulfonamides; Z88.8 Allergy status to other drugs, medicaments and biological substances; Z79.899 Other long term (current) drug therapy; Z91.040 Latex allergy status; Z79.82 Long term (current) use of aspirin; E55.9 Vitamin D deficiency, unspecified; I25.10 Atherosclerotic heart disease of native coronary artery without angina pectoris; G40.909 Epilepsy, unspecified, not intractable, without status epilepticus; Y83.1 Surgical operation with implant of artificial internal device as the cause of abnormal reaction of the patient, or of later complication, without mention of misadventure at the time of the procedure

== ENCOUNTER → 2020-01-28 | Outpatient (REF) | payer MEDICARE, OTHER ==
[~2020-01-28] MED LIST changes: +CLIN150C14 PO; -CLINDAMYCIN 900 MG in IV 1 EA IV ONE; -CLINDAMYCIN INJ 900MG/6ML VIAL As Ordered ONE; -EPINEPHrine INJ 1 MG/ML 1ML AMP As Ordered ONE; -LIDOCAINE 1% MDV 20ML VIAL SQ PRN; -LIDOCAINE 2% 100MG/5ML SDV (FOR ANES.) As Ordered ONE; -LR 1,000 ML IV ONE; -MIDAZOLAM INJ 2MG/2ML VIAL (J2250 PER 1MG) As Ordered ONE; +MORP15TASA PO; -ONDANSETRON 4MG/2ML VIAL As Ordered ONE; +TRAM50TA2 PO; -TRANEXAMIC ACID 100 MG/ML 10ML VIAL As Ordered ONE; +XARE10TA PO; -fentaNYL 100 MCG/2 ML INJECTION (J3010) As Ordered ONE; -propofoL 200 MG/20 ML VIAL As Ordered ONE
[2020-01-28 08:17] LABS: HEMATOCRIT 31.9 % (36.0-47.0); HEMOGLOBIN 10.2 g/dl (12.0-15.5); MEAN CORPUSCULAR HEMOGLOBIN 31.3 pg (27.0-33.0); MEAN CORPUSCULAR VOLUME 97.9 fl (80.0-96.0); PLATELET COUNT, AUTOMATED 391 10^3/uL (150-450); RED BLOOD COUNT 3.26 10^6/uL (4.00-5.40); WHITE BLOOD COUNT 10.8 10^3/uL (4.0-10.0)
== END ==
LOC: SKLAB5 07:29
PROVIDERS: ATTEND Internal Medicine
DX: D64.9 Anemia, unspecified (principal)

== ENCOUNTER → 2020-02-04 | Outpatient (REF) | LOC: SKLAB5 07:11 | PROVIDERS: ATTEND Internal Medicine | DX: D64.9 Anemia, unspecified (principal) ==

== ENCOUNTER → 2020-02-11 | Outpatient (REF) | LOC: SKLAB5 07:33 | PROVIDERS: ATTEND Internal Medicine | DX: D64.9 Anemia, unspecified (principal) ==

== ENCOUNTER → 2020-02-18 | Outpatient (REF) | payer MEDICARE, OTHER ==
[~2020-02-18] MED LIST changes: +D31000TA2 PO; -VITAD1000T PO
== END ==
LOC: M LAB REF 09:17
PROVIDERS: ATTEND Internal Medicine
DX: R19.7 Diarrhea, unspecified (principal)

== ENCOUNTER → 2020-04-08 | Outpatient (REF) | payer MEDICARE, OTHER | LOC: M LAB REF 16:55 | PROVIDERS: ATTEND Nurse Practitioner Adult Health | DX: N39.0 Urinary tract infection, site not specified (principal) ==

== ENCOUNTER → 2020-04-28 | Outpatient (REF) | payer MEDICARE, OTHER | LOC: M LAB REF 16:12 | PROVIDERS: ATTEND Nurse Practitioner Adult Health | DX: B35.9 Dermatophytosis, unspecified (principal) ==

== ENCOUNTER → 2020-07-08 | Outpatient (CLI) | payer MEDICARE, OTHER ==
[~2020-07-08] MED LIST changes: +CALC-362 PO; -CHEW500C2 PO
[2020-07-08 17:15] LABS: HEMATOCRIT 43.6 % (36.0-47.0); MEAN CORPUSCULAR HEMOGLOBIN 29.8 pg (27.0-33.0); MEAN CORPUSCULAR HGB CONC 32.1 g/dl (32.0-36.5); MEAN CORPUSCULAR VOLUME 92.8 fl (80.0-96.0); PLATELET COUNT, AUTOMATED 223 10^3/uL (150-450); WHITE BLOOD COUNT 7.9 10^3/uL (4.0-10.0)
[2020-07-08 17:47] LABS: ALBUMIN 3.7 GM/DL (3.2-5.2); ALT/SGPT 26 U/L (12-78); BILIRUBIN,TOTAL 0.4 MG/DL (0.2-1.0); BLOOD UREA NITROGEN 23 MG/DL (7-18); CALCIUM LEVEL 9.2 MG/DL (8.8-10.2); CARBON DIOXIDE LEVEL 32 MEQ/L (21-32); CHLORIDE LEVEL 105 MEQ/L (98-107); GLOMERULAR FILTRATION RATE > 60.0 (>32); GLUCOSE, FASTING 197 MG/DL (70-100); LIPASE 140 U/L (73-393); POTASSIUM SERUM 3.8 MEQ/L (3.5-5.1); SODIUM LEVEL 141 MEQ/L (136-145); TOTAL PROTEIN 7.3 GM/DL (6.4-8.2)
== END ==
LOC: M LAB 15:48
PROVIDERS: ATTEND Internal Medicine Gastroenterology
DX: R10.13 Epigastric pain (principal); R07.9 Chest pain, unspecified

== ENCOUNTER → 2020-07-27 | Outpatient (CLI) | payer MEDICARE, OTHER ==
--- NOTE | 2020-07-27 09:38 | REP ---
INDICATION: ABD PAIN ATTN LIVER AND GALLBLADDER COMPARISON: None. TECHNIQUE: Real time baker scale ultrasound examination using curved array transducer. FINDINGS: Liver is mildly echogenic suggesting fatty infiltration without focal hepatic lesion identified. Evaluation of the pancreas is limited but visualized portions appear normal. Gallbladder demonstrates mild wall thickening to 4.5 mm along with small amount of layering sludge/gravel. No pericholecystic fluid or sonographic Love sign was elicited during examination. There is no evidence for biliary ductal dilatation and the common bile duct measures 5.3 mm diameter. The right kidney is normal in reniform shape without hydronephrosis and measures 11.1 x 4.1 x 5.1 cm. No ascites in the visualized right upper quadrant. IMPRESSION: 1. Mild hepatosteatosis suggested. 2. Likely chronic gallbladder wall thickening with small amount of layering sludge/gravel. No sonographic evidence to suggest acute cholecystitis. <Electronically signed by Gamal Gil > 07/27/20 [id number]
== END ==
LOC: M RAD 08:38
PROVIDERS: ATTEND Internal Medicine Gastroenterology
DX: R10.13 Epigastric pain (principal); R14.0 Abdominal distension (gaseous); K44.9 Diaphragmatic hernia without obstruction or gangrene; K29.70 Gastritis, unspecified, without bleeding; R10.33 Periumbilical pain

== ENCOUNTER 2020-08-21 16:31 | Emergency (ER) | payer MEDICARE, OTHER ==
[~2020-08-21] VITALS: Ht 160 cm; Wt 85.0 kg
[~2020-08-21 16:31] MED LIST changes: -CLIN150C14 PO; +CLIN150C15 PO; +ISOS1TAB35 PO; -ISOS30TA4 PO
[2020-08-21] MEDS ORDERED: MORPHINE 2 MG/ML 1ML VIAL (J2270) IV ONE (17:15)
[2020-08-21] MEDS ORDERED: ONDANSETRON 4MG/2ML VIAL IV ONE (17:15)
[2020-08-21] MEDS ORDERED: NS 500 ML IV ONE (17:15)
[2020-08-21 17:29] LABS: BASO # 0.1 10^3/uL (0.0-0.2); BASO % 0.7 % (0.0-1.0); EOS # 0.2 10^3/uL (0.0-0.5); EOS % 2.3 % (0.0-3.0); HEMATOCRIT 38.1 % (36.0-47.0); HEMOGLOBIN 12.4 g/dl (12.0-15.5); LYMPH % 21.9 % (24.0-44.0); MEAN CORPUSCULAR HEMOGLOBIN 30.5 pg (27.0-33.0); MEAN CORPUSCULAR HGB CONC 32.5 g/dl (32.0-36.5); MEAN CORPUSCULAR VOLUME 93.6 fl (80.0-96.0); MONO # 1.2 10^3/uL (0.0-0.8); MONO % 12.8 % (0.0-5.0); NEUTROPHILS # 5.7 10^3/uL (1.5-8.5); NEUTROPHILS % 61.8 % (36.0-66.0); PLATELET COUNT, AUTOMATED 231 10^3/uL (150-450); RED BLOOD COUNT 4.07 10^6/uL (4.00-5.40); WHITE BLOOD COUNT 9.1 10^3/uL (4.0-10.0)
[2020-08-21] MEDS ORDERED: ASPI81CH33 PO (17:53)
[2020-08-21] MEDS ORDERED: ISOVUE-370 76% 100ML VIAL As Ordered ONE (17:59)
[2020-08-21 18:00] LABS: ALBUMIN 3.4 GM/DL (3.2-5.2); BILIRUBIN,DIRECT 0.2 MG/DL (0.0-0.2); BILIRUBIN,TOTAL 0.5 MG/DL (0.2-1.0); TOTAL PROTEIN 7.1 GM/DL (6.4-8.2)
[2020-08-21 18:07] LABS: INR 1.03; PROTHROMBIN TIME 13.7 SECONDS (12.5-14.3)
[2020-08-21 18:08] LABS: PARTIAL THROMBOPLASTIN TIME 27.3 SECONDS (24.2-38.5)
--- NOTE | 2020-08-21 19:02 | REPVR ---
PROCEDURE INFORMATION: Exam: CT Abdomen And Pelvis With Contrast Exam date and time: 08/21/2020 6:05 PM Age: 84 years old Clinical indication: Abdominal pain; Additional info: Lower abdominal pain; R/O diverticulitis TECHNIQUE: Imaging protocol: Computed tomography of the abdomen and pelvis with intravenous contrast. Radiation optimization: All CT scans at this facility use at least one of these dose optimization techniques: automated exposure control; mA and/or kV adjustment per patient size (includes targeted exams where dose is matched to clinical indication); or iterative reconstruction. Contrast material: ISOVUE 370; Contrast volume: 100 ml; Contrast route: INTRAVENOUS (IV); COMPARISON: CT ABD/PEL W/IV CONTRAST ONLY 04/17/2017 3:04 PM FINDINGS: Lungs: There are bibasilar dependent changes. Heart: Prominent right pericardial fat, stable from prior. Liver: Normal. No mass. Gallbladder and bile ducts: Distended gallbladder. No pericholecystic inflammatory change. Pancreas: Normal. No ductal dilation. Spleen: Normal. No splenomegaly. Adrenal glands: Normal. No mass. Kidneys and ureters: Normal. No hydronephrosis. Stomach and bowel: There is diverticulosis. Focal inflammatory change at the sigmoid colon no drainable fluid collection. Appendix: No evidence of appendicitis. Intraperitoneal space: Unremarkable. No free air. No significant fluid collection. Vasculature: Vascular calcification. There are phleboliths within the pelvis. Lymph nodes: Unremarkable. No enlarged lymph nodes. Urinary bladder: Unremarkable as visualized. Reproductive: Prior hysterectomy. Bones/joints: There are degenerative changes involving the spine. After previous right hip arthroplasty. Soft tissues: Unremarkable. IMPRESSION: 1. Positive for acute sigmoid diverticulitis. No complicating features. 2. Additional findings as above. Electronically signed by: Bertram Corbin On 08/21/2020 19:01:31 PM
[2020-08-21] MEDS ORDERED: metroNIDAZOLE (FLAGYL) 500MG TABLET PO ONE (19:15)
[2020-08-21] MEDS ORDERED: NORCO 5/325MG TABLET (BULK FOR ED) PO ONE (19:15)
[2020-08-21] MEDS ORDERED: CIPROFLOXACIN 500MG TABLET PO ONE (19:15)
[2020-08-21] MEDS ORDERED: ONDANSETRON 4 MG ORAL DISINTEGRATING TAB PO ONE (19:15)
[2020-08-21] MEDS ORDERED: FLAG500T PO (19:19)
[2020-08-21] MEDS ORDERED: HYDR-3715 PO (19:19)
[2020-08-21] MEDS ORDERED: ONDA4TAB6 PO (19:19)
[2020-08-21] MEDS ORDERED: CIPR-249 PO (19:19)
[2020-08-21 19:33] VITALS: BP 130/59
== END 2020-08-21 19:52 | disposition home or self-care (01) ==
LOC: M ED 16:31
DX: K57.30 Diverticulosis of large intestine without perforation or abscess without bleeding (principal); I25.2 Old myocardial infarction; E11.9 Type 2 diabetes mellitus without complications; I11.0 Hypertensive heart disease with heart failure; I50.9 Heart failure, unspecified; H40.9 Unspecified glaucoma; G40.909 Epilepsy, unspecified, not intractable, without status epilepticus; Z79.4 Long term (current) use of insulin; Z79.82 Long term (current) use of aspirin; Z79.899 Other long term (current) drug therapy; Z98.890 Other specified postprocedural states; Z88.0 Allergy status to penicillin; Z88.2 Allergy status to sulfonamides; Z88.8 Allergy status to other drugs, medicaments and biological substances; Z91.040 Latex allergy status
CPT/HCPCS: 74177; 80047; 80076; 83605; 83690; 85025; 85610; 85730; 96374; 96375; 99284; J2270; J2405; Q0162; Q9967

== ENCOUNTER 2020-11-07 09:37 | Emergency (ER) | payer MEDICARE, OTHER ==
[~2020-11-07] VITALS: Ht 160 cm; Wt 85.0 kg
[~2020-11-07 09:37] MED LIST changes: +ASPI81CH33 PO; +HYDR-3715 PO; +ONDA4TAB6 PO
[2020-11-07] MEDS ORDERED: CIPR7.5D5 OTIC ×2 (10:53→10:58)
[2020-11-07] MEDS ORDERED: CIPRODEX OTIC SUSP 7.5ML AS ONE (10:55)
[2020-11-07 11:34] VITALS: BP 167/72
== END 2020-11-07 11:39 | disposition home or self-care (01) ==
LOC: M ED 09:37
DX: H60.92 Unspecified otitis externa, left ear (principal); E11.9 Type 2 diabetes mellitus without complications; H40.9 Unspecified glaucoma; I50.9 Heart failure, unspecified; I25.2 Old myocardial infarction; R56.9 Unspecified convulsions; K52.9 Noninfective gastroenteritis and colitis, unspecified; Z79.82 Long term (current) use of aspirin; Z79.4 Long term (current) use of insulin; Z79.899 Other long term (current) drug therapy; Z88.0 Allergy status to penicillin; Z88.2 Allergy status to sulfonamides; Z91.040 Latex allergy status; Z88.8 Allergy status to other drugs, medicaments and biological substances

== ENCOUNTER 2020-11-09 03:00 | Emergency (ER) | payer MEDICARE, OTHER ==
[~2020-11-09] VITALS: Ht 160 cm; Wt 88.3 kg
[~2020-11-09 03:00] MED LIST changes: +CIPR7.5D5 OTIC
[2020-11-09] MEDS ORDERED: METOCLOPRAMIDE INJ 10MG/2ML VIAL (J2765 PER 1) IV ONE (04:10)
--- NOTE | 2020-11-09 04:30 | REPVR ---
PROCEDURE INFORMATION: Exam: CT Head Without Contrast Exam date and time: 11/09/2020 3:33 AM Age: 85 years old Clinical indication: Pain; Headache not specified; Additional info: Left headache TECHNIQUE: Imaging protocol: Computed tomography of the head without contrast. Radiation optimization: All CT scans at this facility use at least one of these dose optimization techniques: automated exposure control; mA and/or kV adjustment per patient size (includes targeted exams where dose is matched to clinical indication); or iterative reconstruction. COMPARISON: CT Head without contrast 04/26/2018 1:23 PM FINDINGS: Brain: Decreased attenuation of the supratentorial white matter is likely secondary to chronic microvascular ischemia. No acute intracranial hemorrhage. Cerebral ventricles: Ventricular and subarachnoid spaces are age appropriate. Bones/joints: Unremarkable. No acute fracture. Paranasal sinuses: Minimal paranasal sinus disease. Mastoid air cells: Visualized mastoid air cells are well aerated. Vasculature: Intracranial vascular calcification. Soft tissues: Unremarkable. IMPRESSION: No acute intracranial abnormality. Electronically signed by: Bertram Corbin On 11/09/2020 04:30:48 AM
[2020-11-09 05:43] LABS: BASO # 0.1 10^3/uL (0.0-0.2); BASO % 0.8 % (0.0-1.0); EOS # 0.3 10^3/uL (0.0-0.5); EOS % 3.9 % (0.0-3.0); HEMATOCRIT 39.7 % (36.0-47.0); HEMOGLOBIN 13.2 g/dl (12.0-15.5); LYMPH # 0.9 10^3/uL (1.5-5.0); LYMPH % 14.5 % (24.0-44.0); MEAN CORPUSCULAR HEMOGLOBIN 30.8 pg (27.0-33.0); MEAN CORPUSCULAR HGB CONC 33.2 g/dl (32.0-36.5); MEAN CORPUSCULAR VOLUME 92.5 fl (80.0-96.0); MONO # 0.7 10^3/uL (0.0-0.8); MONO % 11.5 % (2.0-8.0); NEUTROPHILS # 4.4 10^3/uL (1.5-8.5); NEUTROPHILS % 68.7 % (36.0-66.0); PLATELET COUNT, AUTOMATED 173 10^3/uL (150-450); RED BLOOD COUNT 4.29 10^6/uL (4.00-5.40); WHITE BLOOD COUNT 6.4 10^3/uL (4.0-10.0)
[2020-11-09 06:05] LABS: ERYTHROCYTE SEDIMENTATION RATE 24 mm/hr (0-30)
[2020-11-09 06:44] LABS: BLOOD UREA NITROGEN 18 MG/DL (7-18); C REACTIVE PROTEIN QUANTITATIV 1.17 MG/DL (0.00-0.30); CALCIUM LEVEL 8.7 MG/DL (8.8-10.2); CARBON DIOXIDE LEVEL 26 MEQ/L (21-32); CHLORIDE LEVEL 108 MEQ/L (98-107); GLOMERULAR FILTRATION RATE > 60.0 (>32); GLUCOSE, FASTING 183 MG/DL (70-100); SODIUM LEVEL 144 MEQ/L (136-145)
--- NOTE | 2020-11-09 07:38 | REPVR ---
PROCEDURE INFORMATION: Exam: CT Temporal Bones Without Contrast. Exam date and time: 11/09/2020 6:30 AM Age: 85 years old Clinical indication: Pain; Other: Ear; Additional info: Left ear pain/cholesteatoma TECHNIQUE: Imaging protocol: Computed tomography images of the temporal bones without contrast. Radiation optimization: All CT scans at this facility use at least one of these dose optimization techniques: automated exposure control; mA and/or kV adjustment per patient size (includes targeted exams where dose is matched to clinical indication); or iterative reconstruction. COMPARISON: CT Head without contrast 11/09/2020 3:50 AM FINDINGS: Left External Ear structures: The external ear structures are well developed. The external ear is clear. The scutum and tympanic membrane are identified and are unremarkable. Left Middle Ear: The middle ear structures are unremarkable. Specifically, the middle ear cavity is well developed and aerated and the ossicles are clearly identified. The oval windows and round windows are patent. Left Inner ear: The inner ear structures are unremarkable. Specifically, the internal auditory canals are symmetric and unremarkable. The hubert falciformis appears normal. The cochlea and vestibular system are clearly visualized and appear unremarkable. There appears to be normal development of the cochlea and the modiolus appears normal as visualized. The vestibule are semicircular canals are of normal size and configuration. There is no evidence of labyrinthitis ossificans or otospongiosis /otosclerosis. The vestibular aqueduct is unremarkable without enlargement or flaring. The cochlear aqueduct is identified. Left facial nerve: The facial nerve is visualized without any abnormality seen. There is bone covering over the tympanic segment as visualized. Left Mastoids: Mastoid air cells are well developed. The mastoid air cells are well aerated. Right External Ear structures: The external ear structures are well developed. The external ear is clear. The scutum and tympanic membrane are identified and are unremarkable. Right Middle Ear: The middle ear structures are unremarkable. Specifically, the middle ear cavity is well developed and aerated and the ossicles are clearly identified. The oval windows and round windows are patent. Right Inner ear: The inner ear structures are unremarkable. Specifically, the internal auditory canals are symmetric and unremarkable. The hubert falciformis appears normal. The cochlea and vestibular system are clearly visualized and appear unremarkable. There appears to be normal development of the cochlea and the modiolus appears normal as visualized. The vestibule are semicircular canals are of normal size and configuration. There is no evidence of labyrinthitis ossificans or otospongiosis /otosclerosis. The vestibular aqueduct is unremarkable without enlargement or flaring. The cochlear aqueduct is identified. Right facial nerve: The facial nerve is visualized without any abnormality seen. There is bone covering over the tympanic segment as visualized. Right Mastoids: Mastoid air cells are well developed. The mastoid air cells are well aerated. There are small maxillary retention cysts or polyps. Minimal scattered mucosal thickening in paranasal sinuses. IMPRESSION: 1. No acute findings of CT of the temporal bones. Clear external auditory canals and middle ear cavities. No evidence cholesteatoma. Electronically signed by: Corinne Ang On 11/09/2020 07:38:46 AM
[2020-11-09 08:31] VITALS: BP 173/86
== END 2020-11-09 08:52 | disposition home or self-care (01) ==
LOC: M ED 03:00
DX: H92.09 Otalgia, unspecified ear (principal); R51.9 Headache, unspecified; I25.10 Atherosclerotic heart disease of native coronary artery without angina pectoris; I51.9 Heart disease, unspecified; I25.2 Old myocardial infarction; E11.9 Type 2 diabetes mellitus without complications; I10 Essential (primary) hypertension; R56.9 Unspecified convulsions; K21.9 Gastro-esophageal reflux disease without esophagitis; Z79.82 Long term (current) use of aspirin; Z79.4 Long term (current) use of insulin; Z79.899 Other long term (current) drug therapy; Z88.0 Allergy status to penicillin; Z88.2 Allergy status to sulfonamides; Z88.8 Allergy status to other drugs, medicaments and biological substances; Z91.040 Latex allergy status
CPT/HCPCS: 70450; 70480; 80048; 85025; 85652; 86140; 96374; 99285; J2765

== ENCOUNTER → 2020-12-09 | Outpatient (CLI) | payer MEDICARE, OTHER ==
[2020-12-09 17:24] LABS: HEMATOCRIT 40.4 % (36.0-47.0); MEAN CORPUSCULAR HEMOGLOBIN 30.6 pg (27.0-33.0); MEAN CORPUSCULAR HGB CONC 32.2 g/dl (32.0-36.5); MEAN CORPUSCULAR VOLUME 95.1 fl (80.0-96.0); PLATELET COUNT, AUTOMATED 222 10^3/uL (150-450); RED BLOOD COUNT 4.25 10^6/uL (4.00-5.40); WHITE BLOOD COUNT 6.7 10^3/uL (4.0-10.0)
[2020-12-09 17:47] LABS: ALBUMIN 3.4 GM/DL (3.2-5.2); ALT/SGPT 20 U/L (12-78); BILIRUBIN,TOTAL 0.6 MG/DL (0.2-1.0); BLOOD UREA NITROGEN 20 MG/DL (7-18); CARBON DIOXIDE LEVEL 34 MEQ/L (21-32); CHLORIDE LEVEL 105 MEQ/L (98-107); CREATININE FOR GFR 0.89 MG/DL (0.55-1.30); GLOMERULAR FILTRATION RATE > 60.0 (>32); GLUCOSE, FASTING 227 MG/DL (70-100); LIPASE 123 U/L (73-393); POTASSIUM SERUM 3.8 MEQ/L (3.5-5.1); SODIUM LEVEL 142 MEQ/L (136-145)
== END ==
LOC: M LAB 16:27
PROVIDERS: ATTEND Internal Medicine Gastroenterology
DX: R10.13 Epigastric pain (principal); R14.0 Abdominal distension (gaseous); K59.00 Constipation, unspecified; K44.9 Diaphragmatic hernia without obstruction or gangrene; R14.1 Gas pain

== ENCOUNTER → 2020-12-23 | Outpatient (CLI) | payer MEDICARE, OTHER ==
[2020-12-23 17:46] LABS: BASO # 0.1 10^3/uL (0.0-0.2); BASO % 0.6 % (0.0-1.0); EOS # 0.3 10^3/uL (0.0-0.5); EOS % 3.3 % (0.0-3.0); HEMATOCRIT 41.8 % (36.0-47.0); HEMOGLOBIN 13.9 g/dl (12.0-15.5); LYMPH # 2.6 10^3/uL (1.5-5.0); LYMPH % 31.9 % (24.0-44.0); MEAN CORPUSCULAR HGB CONC 33.3 g/dl (32.0-36.5); MEAN CORPUSCULAR VOLUME 93.1 fl (80.0-96.0); MONO # 0.9 10^3/uL (0.0-0.8); MONO % 11.3 % (2.0-8.0); NEUTROPHILS # 4.3 10^3/uL (1.5-8.5); NEUTROPHILS % 52.2 % (36.0-66.0); PLATELET COUNT, AUTOMATED 218 10^3/uL (150-450); RED BLOOD COUNT 4.49 10^6/uL (4.00-5.40); WHITE BLOOD COUNT 8.2 10^3/uL (4.0-10.0)
[2020-12-23 18:29] LABS: BLOOD UREA NITROGEN 23 MG/DL (7-18); CALCIUM LEVEL 9.7 MG/DL (8.8-10.2); CARBON DIOXIDE LEVEL 33 MEQ/L (21-32); CHLORIDE LEVEL 102 MEQ/L (98-107); CREATININE FOR GFR 0.86 MG/DL (0.55-1.30); GLOMERULAR FILTRATION RATE > 60.0 (>32); GLUCOSE, FASTING 333 MG/DL (70-100); POTASSIUM SERUM 4.1 MEQ/L (3.5-5.1); SODIUM LEVEL 139 MEQ/L (136-145); TROPONIN I < 0.02 NG/ML (< 0.10)
== END ==
LOC: M LAB 16:55
PROVIDERS: ATTEND Physician Assistant
DX: R07.89 Other chest pain (principal)

== ENCOUNTER 2021-01-04 11:13 | Emergency (ER) | payer MEDICARE, OTHER ==
[~2021-01-04] VITALS: Ht 160 cm; Wt 84.1 kg
--- NOTE | 2021-01-04 12:18 | REPVR ---
PROCEDURE INFORMATION: Exam: CT Head Without Contrast Exam date and time: 01/04/2021 11:50 AM Age: 85 years old Clinical indication: Pain; Headache not specified TECHNIQUE: Imaging protocol: Computed tomography of the head without contrast. Radiation optimization: All CT scans at this facility use at least one of these dose optimization techniques: automated exposure control; mA and/or kV adjustment per patient size (includes targeted exams where dose is matched to clinical indication); or iterative reconstruction. COMPARISON: CT Head without contrast 11/09/2020 3:50 AM FINDINGS: Brain: Benign bilateral globus pallidus calcifications are present. There is moderate atrophy and chronic white matter microangiopathic changes. Cerebral ventricles: There is compensatory ventricular dilation. Paranasal sinuses: Visualized sinuses are unremarkable. No fluid levels. Mastoid air cells: Visualized mastoid air cells are well aerated. Vasculature: There is moderate calcification of the carotid siphons. Bones/joints: Unremarkable. No acute fracture. Soft tissues: Unremarkable. Dental: The patient is edentulous. IMPRESSION: No acute intracranial process is identified. Electronically signed by: Fercho Ryan On 01/04/2021 12:17:36 PM
[2021-01-04] MEDS ORDERED: GLIP5TAB8 PO (12:29)
[2021-01-04] MEDS ORDERED: GABA-282 PO (12:29)
[2021-01-04] MEDS ORDERED: TIMO0.5S29 (12:29)
[2021-01-04] MEDS ORDERED: LINZ72CA PO (12:29)
[2021-01-04 13:39] LABS: BASO % 0.7 % (0.0-1.0); EOS # 0.2 10^3/uL (0.0-0.5); HEMATOCRIT 38.2 % (36.0-47.0); HEMOGLOBIN 12.7 g/dl (12.0-15.5); LYMPH # 1.2 10^3/uL (1.5-5.0); LYMPH % 21.8 % (24.0-44.0); MEAN CORPUSCULAR HEMOGLOBIN 30.5 pg (27.0-33.0); MEAN CORPUSCULAR HGB CONC 33.2 g/dl (32.0-36.5); MEAN CORPUSCULAR VOLUME 91.6 fl (80.0-96.0); MONO # 0.6 10^3/uL (0.0-0.8); MONO % 11.4 % (2.0-8.0); NEUTROPHILS # 3.4 10^3/uL (1.5-8.5); NEUTROPHILS % 61.6 % (36.0-66.0); PLATELET COUNT, AUTOMATED 185 10^3/uL (150-450); RED BLOOD COUNT 4.17 10^6/uL (4.00-5.40); WHITE BLOOD COUNT 5.6 10^3/uL (4.0-10.0)
[2021-01-04 13:58] LABS: BLOOD UREA NITROGEN 18 MG/DL (7-18); CALCIUM LEVEL 9.3 MG/DL (8.8-10.2); CARBON DIOXIDE LEVEL 33 MEQ/L (21-32); CHLORIDE LEVEL 104 MEQ/L (98-107); CREATININE FOR GFR 0.63 MG/DL (0.55-1.30); GLOMERULAR FILTRATION RATE > 60.0 (>32); GLUCOSE, FASTING 217 MG/DL (70-100); POTASSIUM SERUM 3.9 MEQ/L (3.5-5.1); SODIUM LEVEL 142 MEQ/L (136-145)
[2021-01-04] MEDS ORDERED: ACETAMINOPHEN 325 MG TAB PO ONE (14:10)
[2021-01-04 14:20] LABS: ERYTHROCYTE SEDIMENTATION RATE 17 mm/hr (0-30)
[2021-01-04] MEDS ORDERED: NS 500 ML IV ONE (14:35)
[2021-01-04] MEDS ORDERED: ISOVUE-370 76% 100ML VIAL As Ordered ONE (14:36)
--- NOTE | 2021-01-04 15:15 | REPVR ---
PROCEDURE INFORMATION: Exam: CT Angiography Neck With Contrast Exam date and time: 01/04/2021 2:51 PM Age: 85 years old Clinical indication: Pain; Headache; Additional info: Left headache, neck pain TECHNIQUE: Imaging protocol: Computed tomography angiography of the neck with contrast. 3D rendering (Not supervised by radiologist): MIP and/or 3D reconstructed images were created by the technologist. Radiation optimization: All CT scans at this facility use at least one of these dose optimization techniques: automated exposure control; mA and/or kV adjustment per patient size (includes targeted exams where dose is matched to clinical indication); or iterative reconstruction. Contrast material: ISOVUE 370; Contrast volume: 100 ml; Contrast route: INTRAVENOUS (IV); COMPARISON: No relevant prior studies available. FINDINGS: Right common carotid artery: No stenosis. No dissection or occlusion. Right internal carotid artery: There is mild calcification of the right internal carotid origin with less than 50% compromise of the lumen. Right external carotid artery: No occlusion or stenosis of the origin. Left common carotid artery: No stenosis. No dissection or occlusion. Left internal carotid artery: There is moderate calcification of the left internal carotid origin with less than 50% compromise of the lumen. Left external carotid artery: No occlusion or stenosis of the origin. Right vertebral artery: No stenosis. No dissection or occlusion. Left vertebral artery: No stenosis. No dissection or occlusion. 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 Aorta: The vasculature demonstrates diffuse moderate atherosclerotic calcification. Thyroid: An 8 mm nodule is seen in the anterior right thyroid lobe on axial image 44. Dental: The patient is edentulous. Soft tissues: Normal. No significant soft tissue swelling. Bones/joints: No acute fracture. Lungs: Patchy density mosaic lung pattern suggests small airways disease. IMPRESSION: 1. There are codominant vertebral arteries with no stenosis or dissection. 2. There is mild calcification of the right internal carotid origin with less than 50% compromise of the lumen. 3. There is moderate calcification of the left internal carotid origin with less than 50% compromise of the lumen. 4. 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 COMMENTS: Consistent with the [employer]'s Incidental Findings Committee white paper (J Am Paul Radiol 2015): In patients aged 35 years and older with an incidental thyroid nodule equal to or greater than 1.[address], MRI or extrathyroidal US, further evaluation with dedicated thyroid US is recommended for patients with normal life expectancy and without comorbidities. For smaller nodules without suspicious features, no further evaluation or follow up is recommended. REFERENCES: NASCET CRITERIA. The degree of internal carotid artery stenosis is based on NASCET criteria. Normal is no stenosis. Mild is less than 50% stenosis. Moderate is 50-69% stenosis. Severe is 70% to 99% stenosis. Total occlusion is no detectable patent lumen. Electronically signed by: Fercho Ryan On 01/04/2021 15:15:21 PM
--- NOTE | 2021-01-04 15:22 | REPVR ---
PROCEDURE INFORMATION: Exam: CT Angiography Head With Contrast, Arteriography Exam date and time: 01/04/2021 2:51 PM Age: 85 years old Clinical indication: Pain; Headache; Additional info: Left headache, neck pain TECHNIQUE: Imaging protocol: Computed tomography angiography of the head with contrast. Exam focused on the arteries. 3D rendering (Not supervised by radiologist): MIP and/or 3D reconstructed images were created by the technologist. Radiation optimization: All CT scans at this facility use at least one of these dose optimization techniques: automated exposure control; mA and/or kV adjustment per patient size (includes targeted exams where dose is matched to clinical indication); or iterative reconstruction. Contrast material: ISOVUE 370; Contrast volume: 100 ml; Contrast route: INTRAVENOUS (IV); COMPARISON: CT Head without contrast 01/04/2021 11:46 AM FINDINGS: ANTERIOR CIRCULATION: Right internal carotid artery: Unremarkable. Intracranial segment is patent with no significant stenosis. No aneurysm. Right middle cerebral artery: Unremarkable. No occlusion or significant stenosis. No aneurysm. Right anterior cerebral artery: Unremarkable. No occlusion or significant stenosis. No aneurysm. Left internal carotid artery: Unremarkable. Intracranial segment is patent with no significant stenosis. No aneurysm. Left middle cerebral artery: Unremarkable. No occlusion or significant stenosis. No aneurysm. Left anterior cerebral artery: Unremarkable. No occlusion or significant stenosis. No aneurysm. POSTERIOR CIRCULATION: Right vertebral artery: Unremarkable. No occlusion or significant stenosis. No aneurysm. Left vertebral artery: Unremarkable. No occlusion or significant stenosis. No aneurysm. Basilar artery: Unremarkable. No occlusion or significant stenosis. No aneurysm. Right posterior cerebral artery: Unremarkable. No occlusion or significant stenosis. No aneurysm. 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 There is attenuation of the left P1 segment with a small left posterior communicating artery but the proximal source for the left posterior cerebral artery circulation is tenuous. Brain: Benign bilateral globus pallidus calcifications are present. There is moderate atrophy and chronic white matter microangiopathic changes. There is no evidence of any other intracranial large vessel occlusion. Cerebral ventricles: There is compensatory ventricular dilation. Bones/joints: Unremarkable. No acute fracture. Soft tissues: Unremarkable. IMPRESSION: 1. 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 There is attenuation of the left P1 segment with a small left posterior communicating artery but the proximal source for the left posterior cerebral artery circulation is tenuous. 2. There is no evidence of any other intracranial large vessel occlusion. Electronically signed by: Fercho Ryan On 01/04/2021 15:22:47 PM
[2021-01-04] MEDS ORDERED: PAME10CA PO (16:37)
[2021-01-04 17:06] VITALS: BP 118/80
--- NOTE | 2021-01-04 18:58 | ED PDOC ---
Post-Departure Follow-Up cta head and cta neck faxed to dr chadwick for fu Leonor Dumas MD Jan 04, 2021 18:58
== END 2021-01-04 17:12 | disposition home or self-care (01) ==
LOC: M ED 11:13
DX: I67.9 Cerebrovascular disease, unspecified (principal); R51.9 Headache, unspecified; I65.23 Occlusion and stenosis of bilateral carotid arteries; E04.1 Nontoxic single thyroid nodule; Z86.69 Personal history of other diseases of the nervous system and sense organs; I50.9 Heart failure, unspecified; I10 Essential (primary) hypertension; E11.9 Type 2 diabetes mellitus without complications; Z79.82 Long term (current) use of aspirin; Z79.4 Long term (current) use of insulin; Z79.899 Other long term (current) drug therapy; Z88.0 Allergy status to penicillin; Z88.2 Allergy status to sulfonamides; Z88.8 Allergy status to other drugs, medicaments and biological substances; Z91.040 Latex allergy status
CPT/HCPCS: 36415; 70450; 70496; 70498; 80048; 85025; 85652; 96360; 96361; 99284; Q9967

== ENCOUNTER → 2021-04-13 | Outpatient (CLI) | payer MEDICARE, OTHER ==
[~2021-04-13] MED LIST changes: -CLIN150C15 PO; +CLIN150C17 PO; -DOXY100C PO; +DOXY100C3 PO; -DOXY100C37 PO; +DOXY1CAP62 PO; +GABA-282 PO; +GASTROGRAFIN SOLUTION 30ML (Q9963) As Ordered ONE; +GLIP5TAB8 PO; +LINZ72CA PO; +PAME10CA PO; +TIMO0.5S29
--- NOTE | 2021-04-13 14:59 | REP ---
INDICATION: HERNIA. COMPARISON: 08/21/2020 latest prior TECHNIQUE: Standard helical technique after the administration of oral bowel preparatory contrast only. No intravenous contrast was administered. FINDINGS: There is no change in appearance of the lung bases. There is no significant change in appearance of the liver, gallbladder, spleen, pancreas, adrenal glands, or kidneys. There is no significant change in the appearance of the abdominal aorta or para-aortic regions. The changes in the mesentery from acute sigmoid colon diverticulitis seen on the prior exam have abated. There is, however, diverticulosis status quo. There is no evidence of a mass or adenopathy. There is no evidence of free fluid or free air. There is no change in the osseous structures. IMPRESSION: There is no evidence of acute disease. Findings as described above. <Electronically signed by Chaparro Cummings > 04/13/21 [id number]
== END ==
LOC: M RAD 11:24
PROVIDERS: ATTEND Physician Assistant Surgical
DX: Q79.0 Congenital diaphragmatic hernia (principal); K57.30 Diverticulosis of large intestine without perforation or abscess without bleeding
CPT/HCPCS: 74176; Q9963

== ENCOUNTER → 2021-04-28 | Outpatient (CLI) | payer MEDICARE, OTHER ==
[~2021-04-28] MED LIST changes: -GASTROGRAFIN SOLUTION 30ML (Q9963) As Ordered ONE
[2021-04-28 17:31] LABS: BASO # 0.1 10^3/uL (0.0-0.2); BASO % 0.8 % (0.0-1.0); EOS # 0.2 10^3/uL (0.0-0.5); EOS % 3.3 % (0.0-3.0); HEMATOCRIT 39.8 % (36.0-47.0); LYMPH # 2.3 10^3/uL (1.5-5.0); MEAN CORPUSCULAR HEMOGLOBIN 30.5 pg (27.0-33.0); MEAN CORPUSCULAR HGB CONC 32.7 g/dl (32.0-36.5); MEAN CORPUSCULAR VOLUME 93.4 fl (80.0-96.0); MONO # 0.8 10^3/uL (0.0-0.8); MONO % 10.7 % (2.0-8.0); NEUTROPHILS % 53.8 % (36.0-66.0); PLATELET COUNT, AUTOMATED 228 10^3/uL (150-450); RED BLOOD COUNT 4.26 10^6/uL (4.00-5.40); WHITE BLOOD COUNT 7.4 10^3/uL (4.0-10.0)
[2021-04-28 18:04] LABS: BLOOD UREA NITROGEN 23 MG/DL (7-18); CALCIUM LEVEL 9.3 MG/DL (8.8-10.2); CARBON DIOXIDE LEVEL 31 MEQ/L (21-32); CHLORIDE LEVEL 105 MEQ/L (98-107); CREATININE FOR GFR 0.68 MG/DL (0.55-1.30); GLOMERULAR FILTRATION RATE > 60.0 (>32); GLUCOSE, FASTING 146 MG/DL (70-100); NT-PRO BNP 333 PG/ML (<450); POTASSIUM SERUM 4.3 MEQ/L (3.5-5.1); SODIUM LEVEL 142 MEQ/L (136-145)
== END ==
LOC: M PLALAB 15:42
PROVIDERS: ATTEND Physician Assistant
DX: I25.10 Atherosclerotic heart disease of native coronary artery without angina pectoris (principal); R06.02 Shortness of breath

== ENCOUNTER → 2021-05-04 | Outpatient (CLI) | payer MEDICARE, OTHER | LOC: M LABSMTC 10:04 | PROVIDERS: ATTEND Internal Medicine Cardiovascular Disease | DX: Z01.812 Encounter for preprocedural laboratory examination (principal); Z20.822 Contact with and (suspected) exposure to COVID-19 ==

== ENCOUNTER → 2021-09-20 | Outpatient (CLI) | payer MEDICARE, OTHER ==
[~2021-09-20] MED LIST changes: +DOXY-443 PO; -DOXY1CAP62 PO; +LOSA25TA13 PO; -LOSA25TA14 PO
== END ==
LOC: M PLAIMG 14:14
PROVIDERS: ATTEND Nurse Practitioner Adult Health
DX: R06.02 Shortness of breath (principal); I51.7 Cardiomegaly; I27.20 Pulmonary hypertension, unspecified

== ENCOUNTER 2021-11-23 11:14 | Emergency (ER) | payer MEDICARE, OTHER ==
[~2021-11-23] VITALS: Ht 157.5 cm; Wt 85.0 kg
[~2021-11-23 11:14] MED LIST changes: -D31000TA2 PO; +VITA100093 PO
[2021-11-23] MEDS ORDERED: PANTOPRAZOLE 40MG VIAL IV ONE (12:40)
[2021-11-23] MEDS ORDERED: GI COCKTAIL 50ML BTL(HYOSCYAMINE/MAALOX/LIDOCAINE VISCOUS)(1:3:1) PO ONE (12:40)
[2021-11-23 12:45] LABS: BASO % 0.2 % (0.0-1.0); HEMATOCRIT 40.5 % (36.0-47.0); HEMOGLOBIN 13.3 g/dl (12.0-15.5); LYMPH # 1.7 10^3/uL (1.5-5.0); LYMPH % 8.6 % (24.0-44.0); MEAN CORPUSCULAR HGB CONC 32.8 g/dl (32.0-36.5); MEAN CORPUSCULAR VOLUME 94.4 fl (80.0-96.0); MONO # 1.3 10^3/uL (0.0-0.8); MONO % 6.8 % (2.0-8.0); NEUTROPHILS # 16.4 10^3/uL (1.5-8.5); NEUTROPHILS % 83.1 % (36.0-66.0); PLATELET COUNT, AUTOMATED 183 10^3/uL (150-450); RED BLOOD COUNT 4.29 10^6/uL (4.00-5.40); WHITE BLOOD COUNT 19.7 10^3/uL (4.0-10.0)
[2021-11-23 13:12] LABS: ALBUMIN 3.2 GM/DL (3.2-5.2); ALT/SGPT 216 U/L (12-78); BILIRUBIN,DIRECT 6.1 MG/DL (0.0-0.2); BILIRUBIN,TOTAL 7.1 MG/DL (0.2-1.0); BLOOD UREA NITROGEN 27 MG/DL (7-18); CARBON DIOXIDE LEVEL 20 MEQ/L (21-32); CHLORIDE LEVEL 103 MEQ/L (98-107); CREATININE FOR GFR 0.91 MG/DL (0.55-1.30); GLOMERULAR FILTRATION RATE > 60.0 (>32); GLUCOSE, FASTING 210 MG/DL (70-100); LIPASE 85 U/L (73-393); POTASSIUM SERUM 3.7 MEQ/L (3.5-5.1); SODIUM LEVEL 138 MEQ/L (136-145); TOTAL PROTEIN 6.7 GM/DL (6.4-8.2)
[2021-11-23 13:39] LABS: CK-MB VALUE MASS 1.1 NG/ML (<3.6); MB/CK RELATIVE INDEX 2.56 (< OR =4)
[2021-11-23] MEDS ORDERED: ISOVUE-370 76% 100ML VIAL As Ordered ONE (13:45)
[2021-11-23 14:26] LABS: INR 1.13; PROTHROMBIN TIME 14.9 SECONDS (12.7-14.5)
[2021-11-23 14:27] LABS: PARTIAL THROMBOPLASTIN TIME 34.7 SECONDS (25.9-37.0)
[2021-11-23 14:48] LABS: CK-MB VALUE MASS < 1.0 NG/ML (<3.6); CPK CREATINE PHOSPHOKINASE 36 U/L (26-192); MB/CK RELATIVE INDEX 2.78 (< OR =4)
[2021-11-23] MEDS ORDERED: MORPHINE 4 MG/ML 1ML VIAL/SYRINGE IV ONE (14:55)
[2021-11-23] MEDS ORDERED: LevoFLOXacin IV 750 MG in IV 1 EA IV ONE (15:00)
[2021-11-23] MEDS ORDERED: NS 1,000 ML IV SCH (15:10)
[2021-11-23] MEDS ORDERED: ASPIRIN 81 MG CHEW TABLET PO ONE (15:10)
[2021-11-23 15:11] LABS: RSV AMPLIFICATION NEGATIVE (NEGATIVE)
[2021-11-23] MEDS ORDERED: ONDANSETRON 4MG/2ML VIAL IV ONE (15:45)
[2021-11-23] MEDS ORDERED: ONDANSETRON 4MG/2ML VIAL As Ordered ONE (15:46)
[2021-11-23] MEDS ORDERED: metroNIDAZOLE 500 MG in IV 1 EA IV ONE (17:00)
[2021-11-23 17:01] LABS: CK-MB VALUE MASS < 1.0 NG/ML (<3.6); CPK CREATINE PHOSPHOKINASE 33 U/L (26-192); MB/CK RELATIVE INDEX 3.03 (< OR =4)
[2021-11-23] MEDS ORDERED: ENOXAPARIN 100MG/1ML SYRINGE (J1650 PER 10MG) SC ONE (20:25)
[2021-11-23 21:02] VITALS: BP 138/74
== END 2021-11-23 21:04 | disposition short-term general hospital (02) ==
LOC: M ED 11:14
DX: K83.09 Other cholangitis (principal); R79.89 Other specified abnormal findings of blood chemistry; R93.3 Abnormal findings on diagnostic imaging of other parts of digestive tract; E11.9 Type 2 diabetes mellitus without complications; I25.2 Old myocardial infarction; I10 Essential (primary) hypertension; K21.9 Gastro-esophageal reflux disease without esophagitis; R56.9 Unspecified convulsions; Z82.49 Family history of ischemic heart disease and other diseases of the circulatory system; Z79.4 Long term (current) use of insulin; Z79.82 Long term (current) use of aspirin; Z79.899 Other long term (current) drug therapy; Z88.0 Allergy status to penicillin; Z88.2 Allergy status to sulfonamides; Z88.8 Allergy status to other drugs, medicaments and biological substances; Z91.040 Latex allergy status
CPT/HCPCS: 71046; 71275; 74177; 74181; 80048; 80076; 82550; 82553; 83690; 84484; 85025; 85610; 85730; 87631; 93005; 93970; 96365; 96366; 96367; 96375; 99285; J1650; J1956; J2270; J2405; Q9967

== ENCOUNTER → 2022-04-17 | Outpatient (REF) | payer MEDICARE, OTHER ==
[2022-04-17 19:10] LABS: MALB URINE SIEMENS 5.6 MG/L; MAU/CREAT RATIO 9.6 MCG/MG (0.0-30.0)
== END ==
LOC: M LAB REF 17:06
PROVIDERS: ATTEND Nurse Practitioner Family
DX: E11.22 Type 2 diabetes mellitus with diabetic chronic kidney disease (principal); N18.9 Chronic kidney disease, unspecified

== ENCOUNTER 2022-04-22 15:59 | Emergency (ER) | payer MEDICARE, OTHER ==
[2022-04-22] MEDS ORDERED: NS 500 ML IV ONE (16:15)
[2022-04-22] MEDS ORDERED: ONDANSETRON 4MG 2ML VIAL IV ONE (16:40)
[2022-04-22] MEDS ORDERED: MORPHINE 2 MG/ML 1ML VIAL IV PRN (16:40)
[2022-04-22 17:07] LABS: BASO # 0.1 10^3/uL (0.0-0.2); BASO % 0.7 % (0.0-1.0); EOS # 0.2 10^3/uL (0.0-0.5); EOS % 2.4 % (0.0-3.0); HEMATOCRIT 43.6 % (36.0-47.0); HEMOGLOBIN 14.2 g/dl (12.0-15.5); LYMPH # 2.6 10^3/uL (1.5-5.0); LYMPH % 30.9 % (24.0-44.0); MEAN CORPUSCULAR HEMOGLOBIN 30.5 pg (27.0-33.0); MEAN CORPUSCULAR HGB CONC 32.6 g/dl (32.0-36.5); MEAN CORPUSCULAR VOLUME 93.6 fl (80.0-96.0); MONO # 0.8 10^3/uL (0.0-0.8); MONO % 9.2 % (2.0-8.0); NEUTROPHILS # 4.7 10^3/uL (1.5-8.5); NEUTROPHILS % 56.4 % (36.0-66.0); PLATELET COUNT, AUTOMATED 244 10^3/uL (150-450); RED BLOOD COUNT 4.66 10^6/uL (4.00-5.40); WHITE BLOOD COUNT 8.3 10^3/uL (4.0-10.0)
[2022-04-22 17:22] LABS: INR 0.9; PROTHROMBIN TIME 12.6 SECONDS (12.7-14.5)
[2022-04-22 17:23] LABS: PARTIAL THROMBOPLASTIN TIME 29.4 SECONDS (25.9-37.0)
[2022-04-22 17:37] LABS: CK-MB VALUE MASS < 1.0 NG/ML (<3.6); CPK CREATINE PHOSPHOKINASE 65 U/L (26-192); MB/CK RELATIVE INDEX 1.54 (< OR =4)
[2022-04-22 17:44] LABS: ALBUMIN 3.6 GM/DL (3.2-5.2); ALT/SGPT 45 U/L (12-78); BILIRUBIN,DIRECT 0.3 MG/DL (0.0-0.2); BILIRUBIN,TOTAL 0.7 MG/DL (0.2-1.0); BLOOD UREA NITROGEN 24 MG/DL (7-18); CALCIUM LEVEL 9.3 MG/DL (8.8-10.2); CARBON DIOXIDE LEVEL 23 MEQ/L (21-32); CHLORIDE LEVEL 107 MEQ/L (98-107); CREATININE FOR GFR 0.76 MG/DL (0.55-1.30); GLOMERULAR FILTRATION RATE > 60.0 (>32); GLUCOSE, FASTING 229 MG/DL (70-100); LIPASE 204 U/L (73-393); NT-PRO BNP 154 PG/ML (<450); POTASSIUM SERUM 3.8 MEQ/L (3.5-5.1); SODIUM LEVEL 138 MEQ/L (136-145); TOTAL PROTEIN 7.3 GM/DL (6.4-8.2)
[2022-04-22 18:11] LABS: CK-MB VALUE MASS < 1.0 NG/ML (<3.6); CPK CREATINE PHOSPHOKINASE 55 U/L (26-192); MB/CK RELATIVE INDEX 1.82 (< OR =4)
[2022-04-22] MEDS ORDERED: ISOVUE-370 76% 100ML VIAL As Ordered ONE ×2 (18:47→19:52)
[2022-04-22 20:17] LABS: CK-MB VALUE MASS < 1.0 NG/ML (<3.6); CPK CREATINE PHOSPHOKINASE 54 U/L (26-192); MB/CK RELATIVE INDEX 1.85 (< OR =4)
[2022-04-22 22:24] VITALS: BP 130/62
== END 2022-04-22 22:40 | disposition home or self-care (01) ==
LOC: M ED 15:59
DX: R07.9 Chest pain, unspecified (principal); E11.9 Type 2 diabetes mellitus without complications; E78.5 Hyperlipidemia, unspecified
CPT/HCPCS: 71045; 71275; 74177; 80047; 80048; 80076; 82550; 82553; 83690; 83880; 84439; 84443; 84484; 85025; 85610; 85730; 93005; 93041; 94760; 96361; 96374; 96375; 99285; J2270; J2405; Q9967

== ENCOUNTER 2022-04-27 14:53 | Emergency (ER) | payer MEDICARE, OTHER ==
[~2022-04-27] VITALS: Ht 154.9 cm; Wt 78.0 kg
[2022-04-27] MEDS ORDERED: GI COCKTAIL 50ML BTL(HYOSCYAMINE/MAALOX/LIDOCAINE VISCOUS)(1:3:1) PO ONE (15:25)
[2022-04-27 15:36] LABS: BASO # 0.1 10^3/uL (0.0-0.2); BASO % 0.6 % (0.0-1.0); EOS # 0.2 10^3/uL (0.0-0.5); EOS % 2.1 % (0.0-3.0); HEMATOCRIT 41.3 % (36.0-47.0); HEMOGLOBIN 13.5 g/dl (12.0-15.5); LYMPH # 2.1 10^3/uL (1.5-5.0); MEAN CORPUSCULAR HEMOGLOBIN 30.3 pg (27.0-33.0); MEAN CORPUSCULAR HGB CONC 32.7 g/dl (32.0-36.5); MEAN CORPUSCULAR VOLUME 92.6 fl (80.0-96.0); MONO # 0.8 10^3/uL (0.0-0.8); MONO % 9.8 % (2.0-8.0); NEUTROPHILS % 61.3 % (36.0-66.0); PLATELET COUNT, AUTOMATED 237 10^3/uL (150-450); RED BLOOD COUNT 4.46 10^6/uL (4.00-5.40); WHITE BLOOD COUNT 8.2 10^3/uL (4.0-10.0)
[2022-04-27] MEDS ORDERED: ONDANSETRON 4MG ORAL DISINTEGRATING TAB PO ONE (15:55)
[2022-04-27] MEDS ORDERED: PANTOPRAZOLE 40MG TAB (PROTONIX) PO ONE (16:10)
[2022-04-27] MEDS ORDERED: SUCRALFATE SUSP 1GM/10ML UD PO ONE (16:10)
[2022-04-27 16:34] LABS: CK-MB VALUE MASS < 1.0 NG/ML (<3.6); CPK CREATINE PHOSPHOKINASE 91 U/L (26-192)
[2022-04-27 16:36] LABS: INR 0.91; PROTHROMBIN TIME 12.7 SECONDS (12.7-14.5)
[2022-04-27 16:37] LABS: PARTIAL THROMBOPLASTIN TIME 29.4 SECONDS (25.9-37.0)
[2022-04-27 16:40] LABS: ALBUMIN 3.5 GM/DL (3.2-5.2); ALT/SGPT 109 U/L (12-78); BILIRUBIN,DIRECT 0.6 MG/DL (0.0-0.2); BILIRUBIN,TOTAL 1.3 MG/DL (0.2-1.0); BLOOD UREA NITROGEN 23 MG/DL (7-18); CALCIUM LEVEL 9.4 MG/DL (8.8-10.2); CARBON DIOXIDE LEVEL 25 MEQ/L (21-32); CHLORIDE LEVEL 107 MEQ/L (98-107); CREATININE FOR GFR 0.73 MG/DL (0.55-1.30); FREE T4 0.98 NG/DL (0.76-1.46); GLOMERULAR FILTRATION RATE > 60.0 (>32); GLUCOSE, FASTING 156 MG/DL (70-100); LIPASE 151 U/L (73-393); NT-PRO BNP 444 PG/ML (<450); POTASSIUM SERUM 4.5 MEQ/L (3.5-5.1); SODIUM LEVEL 139 MEQ/L (136-145); TOTAL PROTEIN 7.2 GM/DL (6.4-8.2)
[2022-04-27 17:40] LABS: CK-MB VALUE MASS < 1.0 NG/ML (<3.6); CPK CREATINE PHOSPHOKINASE 65 U/L (26-192); MB/CK RELATIVE INDEX 1.54 (< OR =4)
[2022-04-27] MEDS ORDERED: SUCR1SS PO (18:17)
[2022-04-27 18:33] VITALS: BP 139/65
== END 2022-04-27 18:54 | disposition home or self-care (01) ==
LOC: EDBD 14:53 → M ED 14:53
DX: K29.70 Gastritis, unspecified, without bleeding (principal); R74.01 Elevation of levels of liver transaminase levels; I50.9 Heart failure, unspecified; I25.2 Old myocardial infarction; I10 Essential (primary) hypertension; K21.9 Gastro-esophageal reflux disease without esophagitis; R56.9 Unspecified convulsions; M54.50 Low back pain, unspecified; Z79.4 Long term (current) use of insulin; Z79.84 Long term (current) use of oral hypoglycemic drugs; Z79.82 Long term (current) use of aspirin; Z79.899 Other long term (current) drug therapy; Z88.0 Allergy status to penicillin; Z88.2 Allergy status to sulfonamides; Z88.8 Allergy status to other drugs, medicaments and biological substances; Z91.040 Latex allergy status

== ENCOUNTER 2022-08-02 15:32 | Emergency (ER) | payer MEDICARE, OTHER ==
[~2022-08-02] VITALS: Ht 154.9 cm; Wt 80.0 kg
[2022-08-02] MEDS ORDERED: IBUPROFEN 600MG TAB PO ONE (16:55)
[2022-08-02] MEDS ORDERED: NAPR-837 PO (18:35)
[2022-08-02 18:44] VITALS: BP 137/80
== END 2022-08-02 18:46 | disposition home or self-care (01) ==
LOC: M ED 16:57
DX: M17.11 Unilateral primary osteoarthritis, right knee (principal); M11.261 Other chondrocalcinosis, right knee; E11.9 Type 2 diabetes mellitus without complications; I10 Essential (primary) hypertension; I50.9 Heart failure, unspecified; I25.2 Old myocardial infarction; R56.9 Unspecified convulsions; N18.9 Chronic kidney disease, unspecified; F41.9 Anxiety disorder, unspecified; Z79.4 Long term (current) use of insulin; Z79.84 Long term (current) use of oral hypoglycemic drugs; Z79.82 Long term (current) use of aspirin; Z79.899 Other long term (current) drug therapy; Z88.0 Allergy status to penicillin; Z88.2 Allergy status to sulfonamides; Z88.8 Allergy status to other drugs, medicaments and biological substances; Z91.040 Latex allergy status

== ENCOUNTER 2022-08-08 21:06 | Emergency (ER) | payer MEDICARE, OTHER ==
[~2022-08-08] VITALS: Ht 154.9 cm; Wt 79.1 kg
[~2022-08-08 21:06] MED LIST changes: +NAPR-837 PO
[2022-08-08 21:07] VITALS: BP 188/97
[2022-08-08 22:08] LABS: BASO % 0.3 % (0.0-1.0); EOS # 0.3 10^3/uL (0.0-0.5); EOS % 2.2 % (0.0-3.0); HEMATOCRIT 43.9 % (36.0-47.0); HEMOGLOBIN 14.4 g/dl (12.0-15.5); LYMPH # 1.8 10^3/uL (1.5-5.0); LYMPH % 15.2 % (24.0-44.0); MEAN CORPUSCULAR HEMOGLOBIN 30.1 pg (27.0-33.0); MEAN CORPUSCULAR HGB CONC 32.8 g/dl (32.0-36.5); MEAN CORPUSCULAR VOLUME 91.8 fl (80.0-96.0); MONO # 0.7 10^3/uL (0.0-0.8); MONO % 6.1 % (2.0-8.0); NEUTROPHILS # 9.1 10^3/uL (1.5-8.5); NEUTROPHILS % 75.8 % (36.0-66.0); PLATELET COUNT, AUTOMATED 253 10^3/uL (150-450); RED BLOOD COUNT 4.78 10^6/uL (4.00-5.40)
[2022-08-08 22:38] LABS: CK-MB VALUE MASS < 1.0 NG/ML (<3.6); CPK CREATINE PHOSPHOKINASE 75 U/L (34-145); LIPASE 39 U/L (12-53); MB/CK RELATIVE INDEX 1.33 (< OR =4)
[2022-08-08 22:39] LABS: BILIRUBIN,DIRECT 0.1 MG/DL (<0.4)
[2022-08-08 22:40] LABS: ALBUMIN 3.8 G/DL (3.2-5.2); ALKALINE PHOSPHATASE 98 U/L (46-116); ALT/SGPT 14 U/L (7.0-40); AST/SGOT 17 U/L (<34); BILIRUBIN,TOTAL 0.5 MG/DL (0.3-1.2); BLOOD UREA NITROGEN 25 MG/DL (9-23); CALCIUM LEVEL 9.7 MG/DL (8.3-10.6); CARBON DIOXIDE LEVEL 23 MMOL/L (20-31); CHLORIDE LEVEL 109 MMOL/L (98-107); CREATININE FOR GFR 0.62 MG/DL (0.55-1.30); GLOMERULAR FILTRATION RATE > 60.0 (>32); GLUCOSE, FASTING 195 MG/DL (74-106); POTASSIUM SERUM 3.8 MMOL/L (3.5-5.1); SODIUM LEVEL 144 MMOL/L (136-145)
== END 2022-08-08 23:00 | disposition left against medical advice (07) ==
LOC: M ED 21:06
DX: Z53.21 Procedure and treatment not carried out due to patient leaving prior to being seen by health care provider (principal)

== ENCOUNTER → 2022-08-24 | Outpatient (CLI) | payer MEDICARE, OTHER | LOC: M WUC 14:23 | PROVIDERS: ATTEND Internal Medicine | DX: R14.0 Abdominal distension (gaseous) (principal); R10.9 Unspecified abdominal pain; Z96.641 Presence of right artificial hip joint; M47.9 Spondylosis, unspecified ==

== ENCOUNTER → 2022-09-03 | Outpatient (CLI) | payer MEDICARE, OTHER ==
[2022-09-03 13:16] LABS: ALBUMIN 3.7 G/DL (3.2-5.2); BILIRUBIN,DIRECT 0.2 MG/DL (<0.4); BILIRUBIN,TOTAL 0.6 MG/DL (0.3-1.2); TOTAL PROTEIN 6.7 G/DL (5.7-8.2)
== END ==
LOC: M LAB 12:22
PROVIDERS: ATTEND Internal Medicine Gastroenterology
DX: R10.84 Generalized abdominal pain (principal); R14.0 Abdominal distension (gaseous); K59.00 Constipation, unspecified; K44.9 Diaphragmatic hernia without obstruction or gangrene; T39.1X1A Poisoning by 4-Aminophenol derivatives, accidental (unintentional), initial encounter

== ENCOUNTER → 2023-02-28 | Outpatient (REF) | payer MEDICARE, OTHER ==
[~2023-02-28] MED LIST changes: +TIMO0.5S20; -TIMO0.5S29
== END ==
LOC: M LAB REF 16:58
PROVIDERS: ATTEND Nurse Practitioner Family
DX: N39.0 Urinary tract infection, site not specified (principal)

== ENCOUNTER → 2023-03-19 | Outpatient (REF) | payer MEDICARE, OTHER | LOC: M LAB REF 16:18 | PROVIDERS: ATTEND Nurse Practitioner Family | DX: N18.2 Chronic kidney disease, stage 2 (mild) (principal); Z79.899 Other long term (current) drug therapy ==

== ENCOUNTER → 2023-04-02 | Outpatient (CLI) | payer MEDICARE, OTHER ==
[2023-04-02 13:08] LABS: ALBUMIN 3.6 G/DL (3.2-5.2); BLOOD UREA NITROGEN 23 MG/DL (9-23); CALCIUM LEVEL 9.2 MG/DL (8.3-10.6); CARBON DIOXIDE LEVEL 31 MMOL/L (20-31); CHLORIDE LEVEL 104 MMOL/L (98-107); GLOMERULAR FILTRATION RATE > 60.0 (>32); GLUCOSE, FASTING 138 MG/DL (74-106); PHOSPHORUS LEVEL 4.4 MG/DL (2.4-5.1); POTASSIUM SERUM 3.9 MMOL/L (3.5-5.1); SODIUM LEVEL 144 MMOL/L (136-145)
== END ==
LOC: M LAB 12:14
PROVIDERS: ATTEND Nurse Practitioner Family
DX: N18.31 Chronic kidney disease, stage 3a (principal)

== ENCOUNTER 2023-07-15 10:56 | Emergency (ER) | payer MEDICARE, OTHER ==
[~2023-07-15] VITALS: Ht 154.9 cm; Wt 76.4 kg
[~2023-07-15 10:56] MED LIST changes: +GLIP5TAB17 PO; -GLIP5TAB8 PO
[2023-07-15] MEDS ORDERED: ACETAMINOPHEN TAB 650MG DOSE (2X325MG) PO ONE (12:20)
[2023-07-15 14:44] VITALS: BP 144/76; TEMP 98.2; O2SAT 95
== END 2023-07-15 14:51 | disposition home or self-care (01) ==
LOC: M ED 10:56
DX: M54.2 Cervicalgia (principal); W19.XXXA Unspecified fall, initial encounter; I25.2 Old myocardial infarction; I10 Essential (primary) hypertension; Z88.0 Allergy status to penicillin; Z88.2 Allergy status to sulfonamides; Z88.8 Allergy status to other drugs, medicaments and biological substances; Z91.040 Latex allergy status; Z79.810 Long term (current) use of selective estrogen receptor modulators (SERMs); Z79.83 Long term (current) use of bisphosphonates; Z79.891 Long term (current) use of opiate analgesic; Z79.82 Long term (current) use of aspirin; Z79.899 Other long term (current) drug therapy

== ENCOUNTER 2023-09-15 06:41 | Emergency (ER) | payer MEDICARE, OTHER ==
[~2023-09-15] VITALS: Ht 154.9 cm; Wt 75.9 kg
[2023-09-15 08:02] LABS: BASO % 0.5 % (0.0-1.0); EOS # 0.2 10^3/uL (0.0-0.5); EOS % 3.3 % (0.0-3.0); HEMOGLOBIN 15.9 g/dl (12.0-15.5); LYMPH # 1.4 10^3/uL (1.5-5.0); LYMPH % 22.8 % (24.0-44.0); MEAN CORPUSCULAR HEMOGLOBIN 31.4 pg (27.0-33.0); MEAN CORPUSCULAR HGB CONC 33.8 g/dl (32.0-36.5); MEAN CORPUSCULAR VOLUME 92.9 fl (80.0-96.0); MONO # 0.8 10^3/uL (0.0-0.8); NEUTROPHILS # 3.7 10^3/uL (1.5-8.5); NEUTROPHILS % 59.9 % (36.0-66.0); PLATELET COUNT, AUTOMATED 218 10^3/uL (150-450); RED BLOOD COUNT 5.06 10^6/uL (4.00-5.40); WHITE BLOOD COUNT 6.1 10^3/uL (4.0-10.0)
[2023-09-15] MEDS: NS 500 ML IV ONE (08:08)
[2023-09-15] MEDS: ONDANSETRON 4MG 2ML VIAL IV ONE (08:08)
[2023-09-15] MEDS: MORPHINE 2 MG/ML 1ML VIAL IV PRN (08:09)
[2023-09-15 08:14] LABS: INR 0.95; PARTIAL THROMBOPLASTIN TIME 25.5 SECONDS (24.8-34.2); PROTHROMBIN TIME 12.4 SECONDS (12.5-14.5)
[2023-09-15 08:35] LABS: CK-MB VALUE MASS < 1.0 NG/ML (<3.6)
[2023-09-15 08:36] LABS: RSV AMPLIFICATION NEGATIVE (NEGATIVE)
[2023-09-15 08:43] LABS: CPK CREATINE PHOSPHOKINASE 31 U/L (34-145); MB/CK RELATIVE INDEX 3.22 (< OR =4)
[2023-09-15] MEDS ORDERED: ISOVUE-370 76% 100ML VIAL As Ordered ONE (09:04)
[2023-09-15 09:44] LABS: LIPASE 51 U/L (12-53)
[2023-09-15 09:46] LABS: ALBUMIN 3.2 G/DL (3.2-5.2); ALKALINE PHOSPHATASE 86 U/L (46-116); ALT/SGPT 11 U/L (7.0-40); AST/SGOT 12 U/L (<34); BILIRUBIN,DIRECT 0.2 MG/DL (<0.4); BILIRUBIN,TOTAL 0.6 MG/DL (0.3-1.2); BLOOD UREA NITROGEN 23 MG/DL (9-23); CALCIUM LEVEL 8.8 MG/DL (8.3-10.6); CARBON DIOXIDE LEVEL 28 MMOL/L (20-31); CHLORIDE LEVEL 107 MMOL/L (98-107); CK-MB VALUE MASS < 1.0 NG/ML (<3.6); CPK CREATINE PHOSPHOKINASE 29 U/L (34-145); CREATININE FOR GFR 0.58 MG/DL (0.55-1.30); GLOMERULAR FILTRATION RATE > 60.0 (>32); GLUCOSE, FASTING 179 MG/DL (74-106); MB/CK RELATIVE INDEX 3.44 (< OR =4); POTASSIUM SERUM 3.9 MMOL/L (3.5-5.1); SODIUM LEVEL 140 MMOL/L (136-145); TOTAL PROTEIN 6.6 G/DL (5.7-8.2)
[2023-09-15 09:48] LABS: FREE T4 0.95 NG/DL (0.89-1.76); THYROID STIMULATING HORMONE 0.994 uIU/ML (0.55-4.78)
[2023-09-15] MEDS ORDERED: GABA-1171 PO (12:45)
[2023-09-15 12:57] VITALS: BP 128/62; TEMP 97.4; O2SAT 93
== END 2023-09-15 13:06 | disposition home or self-care (01) ==
LOC: EDBD 06:41 → M ED 06:41
DX: M54.50 Low back pain, unspecified (principal); B02.9 Zoster without complications; I44.4 Left anterior fascicular block; I45.81 Long QT syndrome; I25.2 Old myocardial infarction; E11.9 Type 2 diabetes mellitus without complications; F41.9 Anxiety disorder, unspecified; F32.A Depression, unspecified; G47.33 Obstructive sleep apnea (adult) (pediatric); Z86.79 Personal history of other diseases of the circulatory system; Z88.0 Allergy status to penicillin; Z88.2 Allergy status to sulfonamides; Z88.8 Allergy status to other drugs, medicaments and biological substances; Z91.040 Latex allergy status; Z79.82 Long term (current) use of aspirin; Z79.4 Long term (current) use of insulin; Z79.810 Long term (current) use of selective estrogen receptor modulators (SERMs); Z79.83 Long term (current) use of bisphosphonates; Z79.899 Other long term (current) drug therapy
CPT/HCPCS: 71045; 71275; 80047; 80048; 80076; 81001; 82550; 82553; 83690; 84439; 84443; 84484; 85025; 85610; 85730; 87040; 87086; 87631; 93005; 93041; 94760; 96361; 96374; 96375; 96376; 99285; J2405; Q9967

== ENCOUNTER → 2023-11-20 | Outpatient (CLI) | payer MEDICARE, OTHER | LOC: M RAD 14:12 | PROVIDERS: ATTEND Internal Medicine Gastroenterology | DX: R10.84 Generalized abdominal pain (principal); R14.0 Abdominal distension (gaseous); K59.00 Constipation, unspecified ==

== ENCOUNTER 2024-01-20 16:49 | Inpatient (IN) | payer MEDICARE, MEDICAID ==
[~2024-01-20] VITALS: Ht 154.9 cm; Wt 76.5 kg
[~2024-01-20 16:49] MED LIST changes: +DOXY-323 PO; -DOXY-443 PO; +ONDA-282 PO; -ONDA4TAB6 PO
[2024-01-20 17:25] LABS: BASO % 0.4 % (0.0-1.0); EOS # 0.1 10^3/uL (0.0-0.5); EOS % 1.7 % (0.0-3.0); HEMATOCRIT 45.4 % (36.0-47.0); HEMOGLOBIN 15.1 g/dl (12.0-15.5); LYMPH # 2.6 10^3/uL (1.5-5.0); LYMPH % 31.7 % (24.0-44.0); MEAN CORPUSCULAR HEMOGLOBIN 31.4 pg (27.0-33.0); MEAN CORPUSCULAR HGB CONC 33.3 g/dl (32.0-36.5); MEAN CORPUSCULAR VOLUME 94.4 fl (80.0-96.0); MONO # 0.9 10^3/uL (0.0-0.8); MONO % 10.5 % (2.0-8.0); NEUTROPHILS # 4.5 10^3/uL (1.5-8.5); NEUTROPHILS % 55.3 % (36.0-66.0); PLATELET COUNT, AUTOMATED 279 10^3/uL (150-450); RED BLOOD COUNT 4.81 10^6/uL (4.00-5.40); WHITE BLOOD COUNT 8.2 10^3/uL (4.0-10.0)
[2024-01-20 17:44] LABS: ALBUMIN 3.6 G/DL (3.2-5.2); ALKALINE PHOSPHATASE 86 U/L (46-116); ALT/SGPT 14 U/L (7.0-40); AST/SGOT 31 U/L (<34); BILIRUBIN,DIRECT 0.1 MG/DL (<0.4); BILIRUBIN,TOTAL 0.5 MG/DL (0.3-1.2); BLOOD UREA NITROGEN 18 MG/DL (9-23); CALCIUM LEVEL 9.1 MG/DL (8.3-10.6); CARBON DIOXIDE LEVEL 26 MMOL/L (20-31); CHLORIDE LEVEL 107 MMOL/L (98-107); GLOMERULAR FILTRATION RATE > 60.0 (>32); GLUCOSE, FASTING 214 MG/DL (74-106); POTASSIUM SERUM 5.4 MMOL/L (3.5-5.1); SODIUM LEVEL 140 MMOL/L (136-145); TOTAL PROTEIN 7.5 G/DL (5.7-8.2)
[2024-01-20] MEDS ORDERED: ISOVUE-370 76% 100ML VIAL As Ordered ONE (18:59)
[2024-01-20] MEDS: MORPHINE 4 MG/ML 1ML VIAL IV ONE (19:00)
[2024-01-20] MEDS: ONDANSETRON 4MG 2ML VIAL IV ONE (19:00)
[2024-01-20] MEDS: NS 1,000 ML IV SCH (19:01)
[2024-01-20] MEDS: CYCLOBENZAPRINE 10MG TABLET PO ONE (20:52)
[2024-01-20] MEDS: KETOROLAC 30 MG/ML 1ML VIAL IV ONE (22:15)
[2024-01-20] MEDS ORDERED: NEUR300C PO (23:26)
[2024-01-20] MEDS ORDERED: ASPI-615 PO (23:26)
[2024-01-20] MEDS ORDERED: ACET650T61 PO (23:26)
[2024-01-20] MEDS ORDERED: LEVE500T88 PO (23:26)
[2024-01-20] MEDS ORDERED: COMB0.2S OU (23:26)
[2024-01-20] MEDS ORDERED: MULT-40 PO (23:26)
[2024-01-20] MEDS ORDERED: JARD1TAB PO (23:26)
[2024-01-20] MEDS ORDERED: TRUL10IN SC (23:26)
[2024-01-20] MEDS ORDERED: HOME MED LIST COMPLETE! XX SCH (23:30)
[2024-01-21] MEDS ORDERED: GLUCAGON INJ 1MG VIAL SC PRN (00:35)
[2024-01-21] MEDS ORDERED: DEXTROSE 50% 50ML SYRINGE IV PRN (00:35)
[2024-01-21] MEDS ORDERED: GLUCOSE 4 GM CHEW PO PRN (00:35)
[2024-01-21] MEDS ORDERED: MAALOX 30 ML SUSP *UDC PO PRN (00:35)
[2024-01-21] MEDS: DICLOFENAC EPOLAMINE 1.3% PATCH TOP SCH (02:11)
[2024-01-21] MEDS: INSULIN LISPRO (NovoLOG) PER UNIT SC SCH ×2 (07:30→21:00)
[2024-01-21 07:45] LABS: MEAN CORPUSCULAR HEMOGLOBIN 31.6 pg (27.0-33.0); MEAN CORPUSCULAR HGB CONC 32.6 g/dl (32.0-36.5); MEAN CORPUSCULAR VOLUME 97.1 fl (80.0-96.0); PLATELET COUNT, AUTOMATED 230 10^3/uL (150-450); RED BLOOD COUNT 4.43 10^6/uL (4.00-5.40); WHITE BLOOD COUNT 6.5 10^3/uL (4.0-10.0)
[2024-01-21] MEDS: HEPARIN SOD (PORCINE) 5000UNITS/ML 1ML VIAL/SYRINGE SC SCH (07:52)
[2024-01-21] MEDS: GABAPENTIN 300 MG CAP PO SCH (07:53)
[2024-01-21] MEDS: ASPIRIN 81MG ENTERIC TABLET PO SCH (07:53)
[2024-01-21] MEDS: ASCORBIC ACID 500 MG TAB PO SCH (07:53)
[2024-01-21] MEDS: DOCUSATE SODIUM 100MG CAPSULE PO SCH (07:53)
[2024-01-21] MEDS: MULTIVITAMINS/MINERALS THERAP 1 TAB PO SCH (07:54)
[2024-01-21] MEDS: OMEPRAZOLE 20MG CAP PO SCH (07:54)
[2024-01-21 08:07] LABS: INR 1.07; PARTIAL THROMBOPLASTIN TIME 27.8 SECONDS (24.8-34.2); PROTHROMBIN TIME 13.6 SECONDS (12.5-14.5)
[2024-01-21 08:14] LABS: ALBUMIN 3.2 G/DL (3.2-5.2); ALKALINE PHOSPHATASE 69 U/L (46-116); ALT/SGPT 10 U/L (7.0-40); AST/SGOT 9 U/L (<34); BILIRUBIN,TOTAL 0.7 MG/DL (0.3-1.2); BLOOD UREA NITROGEN 19 MG/DL (9-23); CALCIUM LEVEL 9.1 MG/DL (8.3-10.6); CARBON DIOXIDE LEVEL 29 MMOL/L (20-31); CHLORIDE LEVEL 108 MMOL/L (98-107); CREATININE FOR GFR 0.68 MG/DL (0.55-1.30); GLOMERULAR FILTRATION RATE > 60.0 (>32); GLUCOSE, FASTING 129 MG/DL (74-106); POTASSIUM SERUM 3.8 MMOL/L (3.5-5.1); SODIUM LEVEL 142 MMOL/L (136-145); TOTAL PROTEIN 6.7 G/DL (5.7-8.2)
[2024-01-21] MEDS: levETIRAcetam **XR** 500 MG TABLET PO SCH (08:21)
[2024-01-21] MEDS: carBAMazepine 100MG *1/2* TABLET PO SCH (10:24)
[2024-01-21 11:20] VITALS: BP 129/69; TEMP 98.4; O2SAT 90
[2024-01-21] MEDS: ACETAMINOPHEN TAB 650MG DOSE (2X325MG) PO PRN (15:19)
[2024-01-21] MEDS: KETOROLAC 30 MG/ML 1ML VIAL IV ONE (17:07)
[2024-01-21 20:29] VITALS: BP 117/66; TEMP 97.7; O2SAT 90
[2024-01-21] MEDS: GABAPENTIN 400MG CAP PO SCH (22:23)
[2024-01-21] MEDS: LATANOPROST 0.005% OPHTH SOLN 2.5 ML OU SCH (22:23)
[2024-01-22 04:59] VITALS: BP 121/66; TEMP 97.5; O2SAT 90
[2024-01-22 06:13] LABS: HEMATOCRIT 41.9 % (36.0-47.0); HEMOGLOBIN 13.7 g/dl (12.0-15.5); MEAN CORPUSCULAR HEMOGLOBIN 31.8 pg (27.0-33.0); MEAN CORPUSCULAR HGB CONC 32.7 g/dl (32.0-36.5); MEAN CORPUSCULAR VOLUME 97.2 fl (80.0-96.0); PLATELET COUNT, AUTOMATED 226 10^3/uL (150-450); RED BLOOD COUNT 4.31 10^6/uL (4.00-5.40); WHITE BLOOD COUNT 11.7 10^3/uL (4.0-10.0)
[2024-01-22 06:36] LABS: MAGNESIUM LEVEL 1.9 MG/DL (1.8-2.4)
[2024-01-22 06:42] LABS: ALBUMIN 2.9 G/DL (3.2-5.2); ALKALINE PHOSPHATASE 91 U/L (46-116); ALT/SGPT 18 U/L (7.0-40); AST/SGOT 38 U/L (<34); BILIRUBIN,TOTAL 0.5 MG/DL (0.3-1.2); BLOOD UREA NITROGEN 31 MG/DL (9-23); CALCIUM LEVEL 9.1 MG/DL (8.3-10.6); CARBON DIOXIDE LEVEL 27 MMOL/L (20-31); CHLORIDE LEVEL 110 MMOL/L (98-107); CREATININE FOR GFR 0.59 MG/DL (0.55-1.30); GLOMERULAR FILTRATION RATE > 60.0 (>32); GLUCOSE, FASTING 166 MG/DL (74-106); POTASSIUM SERUM 4.2 MMOL/L (3.5-5.1); SODIUM LEVEL 143 MMOL/L (136-145); TOTAL PROTEIN 6.4 G/DL (5.7-8.2)
[2024-01-22 06:50] LABS: PROCALCITONIN <0.04 ng/ml
[2024-01-22] MEDS ORDERED: ALBUTEROL SULFATE 2.5MG/0.5ML INH NEB SOLN NEB PRN (07:55)
[2024-01-22] MEDS: carBAMazepine 100MG *1/2* TABLET PO ONE (11:16)
[2024-01-22 12:00] VITALS: BP 122/86; TEMP 98.4; O2SAT 96
[2024-01-22 20:50] VITALS: BP 123/68; TEMP 97.5; O2SAT 93
[2024-01-22] MEDS: carBAMazepine 200MG TABLET PO SCH (21:08)
[2024-01-22] MEDS: GABAPENTIN 300 MG CAP PO SCH (21:08)
[2024-01-22 23:21] LABS: BASO % 0.4 % (0.0-1.0); EOS # 0.2 10^3/uL (0.0-0.5); EOS % 2.1 % (0.0-3.0); HEMATOCRIT 38.5 % (36.0-47.0); HEMOGLOBIN 12.6 g/dl (12.0-15.5); LYMPH # 2.7 10^3/uL (1.5-5.0); LYMPH % 26.1 % (24.0-44.0); MEAN CORPUSCULAR HEMOGLOBIN 31.5 pg (27.0-33.0); MEAN CORPUSCULAR HGB CONC 32.7 g/dl (32.0-36.5); MEAN CORPUSCULAR VOLUME 96.3 fl (80.0-96.0); MONO # 1.2 10^3/uL (0.0-0.8); NEUTROPHILS # 6.3 10^3/uL (1.5-8.5); NEUTROPHILS % 60.1 % (36.0-66.0); PLATELET COUNT, AUTOMATED 231 10^3/uL (150-450); WHITE BLOOD COUNT 10.5 10^3/uL (4.0-10.0)
[2024-01-23] MEDS: NYSTATIN 100,000 UNITS/GM TOPICAL PWD 15GM TOP SCH (01:32)
[2024-01-23 04:00] VITALS: BP 156/85; TEMP 97.7; O2SAT 92
[2024-01-23 07:05] LABS: HEMATOCRIT 37.6 % (36.0-47.0); HEMOGLOBIN 12.5 g/dl (12.0-15.5); MEAN CORPUSCULAR HEMOGLOBIN 31.8 pg (27.0-33.0); MEAN CORPUSCULAR HGB CONC 33.2 g/dl (32.0-36.5); MEAN CORPUSCULAR VOLUME 95.7 fl (80.0-96.0); PLATELET COUNT, AUTOMATED 215 10^3/uL (150-450); RED BLOOD COUNT 3.93 10^6/uL (4.00-5.40); WHITE BLOOD COUNT 8.3 10^3/uL (4.0-10.0)
[2024-01-23 07:41] LABS: ALBUMIN 2.7 G/DL (3.2-5.2); ALKALINE PHOSPHATASE 79 U/L (46-116); ALT/SGPT 18 U/L (7.0-40); AST/SGOT 15 U/L (<34); BILIRUBIN,TOTAL 0.5 MG/DL (0.3-1.2); BLOOD UREA NITROGEN 22 MG/DL (9-23); CALCIUM LEVEL 8.7 MG/DL (8.3-10.6); CARBON DIOXIDE LEVEL 29 MMOL/L (20-31); CHLORIDE LEVEL 108 MMOL/L (98-107); GLOMERULAR FILTRATION RATE > 60.0 (>32); GLUCOSE, FASTING 154 MG/DL (74-106); POTASSIUM SERUM 4.3 MMOL/L (3.5-5.1); SODIUM LEVEL 140 MMOL/L (136-145); TOTAL PROTEIN 5.9 G/DL (5.7-8.2)
[2024-01-23 11:27] VITALS: O2SAT 94
[2024-01-23 12:00] VITALS: BP 148/80; TEMP 96.8; O2SAT 92
[2024-01-23 21:20] VITALS: BP 139/68; TEMP 98.1; O2SAT 90
[2024-01-24 03:30] VITALS: BP 124/70; TEMP 97.5; O2SAT 91
[2024-01-24 06:50] LABS: HEMATOCRIT 40.5 % (36.0-47.0); HEMOGLOBIN 13.3 g/dl (12.0-15.5); MEAN CORPUSCULAR HEMOGLOBIN 31.4 pg (27.0-33.0); MEAN CORPUSCULAR HGB CONC 32.8 g/dl (32.0-36.5); MEAN CORPUSCULAR VOLUME 95.5 fl (80.0-96.0); PLATELET COUNT, AUTOMATED 222 10^3/uL (150-450); RED BLOOD COUNT 4.24 10^6/uL (4.00-5.40); WHITE BLOOD COUNT 6.6 10^3/uL (4.0-10.0)
[2024-01-24 07:32] LABS: ALBUMIN 2.7 G/DL (3.2-5.2); ALKALINE PHOSPHATASE 81 U/L (46-116); ALT/SGPT 18 U/L (7.0-40); AST/SGOT 10 U/L (<34); BILIRUBIN,TOTAL 0.3 MG/DL (0.3-1.2); BLOOD UREA NITROGEN 22 MG/DL (9-23); CALCIUM LEVEL 9.2 MG/DL (8.3-10.6); CARBON DIOXIDE LEVEL 30 MMOL/L (20-31); CHLORIDE LEVEL 107 MMOL/L (98-107); CREATININE FOR GFR 0.53 MG/DL (0.55-1.30); GLOMERULAR FILTRATION RATE > 60.0 (>32); GLUCOSE, FASTING 135 MG/DL (74-106); POTASSIUM SERUM 4.5 MMOL/L (3.5-5.1); SODIUM LEVEL 141 MMOL/L (136-145); TOTAL PROTEIN 6.2 G/DL (5.7-8.2)
[2024-01-24] MEDS: carBAMazepine 100MG *1/2* TABLET PO SCH (09:00)
[2024-01-24] MEDS ORDERED: NEUR300C PO (10:53)
[2024-01-24 11:40] VITALS: BP 122/72; TEMP 97.9; O2SAT 92
== END 2024-01-24 14:46 | disposition home health service (06) | DRG 552 ==
LOC: M ED 16:49 → M ED INP 23:38 → M MSPAV 01-21 11:19
PROVIDERS: ADMIT Family Medicine; ATTEND Internal Medicine
DX: M54.81 Occipital neuralgia (principal); I13.0 Hypertensive heart and chronic kidney disease with heart failure and stage 1 through stage 4 chronic kidney disease, or unspecified chronic kidney disease; I50.32 Chronic diastolic (congestive) heart failure; E11.22 Type 2 diabetes mellitus with diabetic chronic kidney disease; I25.10 Atherosclerotic heart disease of native coronary artery without angina pectoris; R51.9 Headache, unspecified; N18.9 Chronic kidney disease, unspecified; I16.0 Hypertensive urgency; G47.33 Obstructive sleep apnea (adult) (pediatric); I25.2 Old myocardial infarction; R56.9 Unspecified convulsions; Z91.040 Latex allergy status; Z88.2 Allergy status to sulfonamides; Z88.8 Allergy status to other drugs, medicaments and biological substances; Z88.0 Allergy status to penicillin; Z79.899 Other long term (current) drug therapy; Z79.82 Long term (current) use of aspirin; M54.2 Cervicalgia; H40.9 Unspecified glaucoma; Z96.641 Presence of right artificial hip joint

== ENCOUNTER 2024-05-18 17:26 | Inpatient (IN) | payer MEDICARE, MEDICAID ==
[~2024-05-18] VITALS: Ht 154.9 cm; Wt 73.0 kg
[~2024-05-18 17:26] MED LIST changes: +ACET650T61 PO; +ASPI-615 PO; +COMB0.2S OU; -DOXY-323 PO; +DOXY-441 PO; +GABA-1172 PO; -GABA-282 PO; +JARD1TAB PO; +LEVE500T88 PO; +MULT-40 PO; +NEUR300C PO; +TRUL10IN SC
[2024-05-18] MEDS: MORPHINE 2 MG/ML 1ML VIAL IV ONE (19:33)
[2024-05-18] MEDS: ONDANSETRON 4MG 2ML VIAL IV ONE ×2 (19:34→21:29)
[2024-05-19] VITALS (35 sets, daily range): BP systolic 66–122; BP diastolic 43–87; TEMP 97.1–99.7; O2SAT 91–97
[2024-05-19] MEDS: MORPHINE 2 MG/ML 1ML VIAL IV ONE (01:47)
[2024-05-19 02:06] LABS: HEMATOCRIT 39.4 % (36.0-47.0); HEMOGLOBIN 13.2 g/dl (12.0-15.5); MEAN CORPUSCULAR HEMOGLOBIN 31.9 pg (27.0-33.0); MEAN CORPUSCULAR HGB CONC 33.5 g/dl (32.0-36.5); MEAN CORPUSCULAR VOLUME 95.2 fl (80.0-96.0); PLATELET COUNT, AUTOMATED 221 10^3/uL (150-450); RED BLOOD COUNT 4.14 10^6/uL (4.00-5.40); WHITE BLOOD COUNT 13.9 10^3/uL (4.0-10.0)
[2024-05-19] MEDS ORDERED: VITAD1000T PO (02:08)
[2024-05-19] MEDS ORDERED: REPA140I INJ (02:08)
[2024-05-19] MEDS ORDERED: MIDO5TA PO (02:08)
[2024-05-19] MEDS ORDERED: OMEP-173 PO (02:08)
[2024-05-19] MEDS ORDERED: CYAN-1 PO (02:08)
[2024-05-19] MEDS ORDERED: HOME MED LIST COMPLETE! XX SCH (02:10)
[2024-05-19 02:30] LABS: BLOOD UREA NITROGEN 31 MG/DL (9-23); CALCIUM LEVEL 9.7 MG/DL (8.3-10.6); CARBON DIOXIDE LEVEL 28 MMOL/L (20-31); CHLORIDE LEVEL 108 MMOL/L (98-107); CREATININE FOR GFR 0.75 MG/DL (0.55-1.30); GLOMERULAR FILTRATION RATE > 60.0 (>32); GLUCOSE, FASTING 214 MG/DL (74-106); POTASSIUM SERUM 4.5 MMOL/L (3.5-5.1); SODIUM LEVEL 141 MMOL/L (136-145)
[2024-05-19] MEDS ORDERED: MORPHINE 4 MG/ML 1ML VIAL IV PRN (02:55)
[2024-05-19] MEDS: NORCO, ANEXSIA 5/325MG TABLET (HYDROcodone/ACETAMINOPHEN) PO PRN (03:30)
[2024-05-19] MEDS: FOSFOMYCIN TROMETHAMINE 3 GM POWDER PACKET (MONUROL) PO ONE (06:32)
[2024-05-19] MEDS: MIDODRINE 5 MG TAB PO PRN (06:33)
[2024-05-19 06:51] LABS: HEMATOCRIT 39.6 % (36.0-47.0); HEMOGLOBIN 12.8 g/dl (12.0-15.5); MEAN CORPUSCULAR HEMOGLOBIN 31.1 pg (27.0-33.0); MEAN CORPUSCULAR HGB CONC 32.3 g/dl (32.0-36.5); MEAN CORPUSCULAR VOLUME 96.1 fl (80.0-96.0); PLATELET COUNT, AUTOMATED 219 10^3/uL (150-450); RED BLOOD COUNT 4.12 10^6/uL (4.00-5.40); WHITE BLOOD COUNT 11.4 10^3/uL (4.0-10.0)
[2024-05-19 07:16] LABS: BLOOD UREA NITROGEN 33 MG/DL (9-23); CALCIUM LEVEL 9.5 MG/DL (8.3-10.6); CARBON DIOXIDE LEVEL 30 MMOL/L (20-31); CHLORIDE LEVEL 107 MMOL/L (98-107); CREATININE FOR GFR 0.75 MG/DL (0.55-1.30); GLOMERULAR FILTRATION RATE > 60.0 (>32); GLUCOSE, FASTING 163 MG/DL (74-106); POTASSIUM SERUM 4.4 MMOL/L (3.5-5.1); SODIUM LEVEL 141 MMOL/L (136-145)
[2024-05-19] MEDS: NS 1,000 ML IV ONE ×3 (07:33→15:00)
[2024-05-19] MEDS: ENOXAPARIN 40MG/0.4ML SYRINGE (J1650 PER 10MG) SC SCH (07:49)
[2024-05-19] MEDS: DOCUSATE SODIUM 100MG CAPSULE PO SCH (07:50)
[2024-05-19] MEDS: ASPIRIN 81MG ENTERIC TABLET PO SCH (07:50)
[2024-05-19] MEDS: VITAMIN D 1,000 INTERNATIONAL UNITS TABLET PO SCH (07:50)
[2024-05-19] MEDS: OMEPRAZOLE 20MG CAP PO SCH (07:50)
[2024-05-19] MEDS: ASCORBIC ACID 500 MG TAB PO SCH (07:50)
[2024-05-19] MEDS: levETIRAcetam **XR** 500 MG TABLET PO SCH (07:56)
[2024-05-19] MEDS ORDERED: JARDIANCE 10 MG PO SCH (09:00)
[2024-05-19] MEDS: NS 1,000 ML IV SCH (09:08)
[2024-05-19] MEDS: ACETAMINOPHEN 325 MG TAB PO PRN (09:08)
[2024-05-19 09:17] LABS: PROCALCITONIN 0.13 ng/ml
[2024-05-19] MEDS: cefTRIAXone SOD 1 GM in DEXTROSE 5% (D5W) ADV/MINI-BAG 50 ML IV SCH (09:53)
[2024-05-19] MEDS: MIDODRINE 5 MG TAB PO SCH ×2 (11:13→15:14)
[2024-05-19] MEDS: HYDROCORTISONE 100MG/2ML VIAL IV ONE (11:52)
[2024-05-19] MEDS ORDERED: ISOVUE-370 76% 100ML VIAL As Ordered ONE (12:35)
[2024-05-19 14:26] LABS: HEMATOCRIT 34.8 % (36.0-47.0); HEMOGLOBIN 11.6 g/dl (12.0-15.5)
[2024-05-19] MEDS: HYDROCORTISONE 100MG/2ML VIAL IV STA (18:20)
[2024-05-19] MEDS: NOREPINEPHRINE 4MG IN D5 250ML 4 MG in IV 1 EA IV SCH ×2 (18:21→18:33)
[2024-05-19] MEDS: VASOPRESSIN IN 0.9 % NACL 20 UNIT in IV 1 EA IV SCH (18:21)
[2024-05-19] MEDS ORDERED: DEXTROSE 50% 50ML SYRINGE IV PRN (18:30)
[2024-05-19] MEDS ORDERED: GLUCAGON INJ 1MG VIAL SC PRN (18:30)
[2024-05-19] MEDS ORDERED: GLUCOSE 4 GM CHEW PO PRN (18:30)
[2024-05-19] MEDS: INSULIN LISPRO (NovoLOG) PER UNIT SC SCH ×2 (18:50→20:26)
[2024-05-19] MEDS: GABAPENTIN 300 MG CAP PO SCH (20:25)
[2024-05-19 21:04] LABS: HEMATOCRIT 33.4 % (36.0-47.0); HEMOGLOBIN 10.9 g/dl (12.0-15.5)
[2024-05-19] MEDS: LATANOPROST 0.005% OPHTH SOLN 2.5 ML OU SCH (21:52)
[2024-05-20] VITALS (93 sets, daily range): BP systolic 66–166; BP diastolic 46–83; TEMP 97.3–99.3; O2SAT 87–98
[2024-05-20 01:38] LABS: HEMATOCRIT 32.8 % (36.0-47.0); HEMOGLOBIN 10.7 g/dl (12.0-15.5)
[2024-05-20 06:29] LABS: MAGNESIUM LEVEL 2.1 MG/DL (1.8-2.4)
[2024-05-20 08:39] LABS: BLOOD UREA NITROGEN 24 MG/DL (9-23); CARBON DIOXIDE LEVEL 25 MMOL/L (20-31); CHLORIDE LEVEL 115 MMOL/L (98-107); CREATININE FOR GFR 0.55 MG/DL (0.55-1.30); GLOMERULAR FILTRATION RATE > 60.0 (>32); GLUCOSE, FASTING 165 MG/DL (74-106); SODIUM LEVEL 145 MMOL/L (136-145)
[2024-05-20] MEDS ORDERED: cefTRIAXone SOD 2 GM in DEXTROSE 5% (D5W) ADV/MINI-BAG 50 ML IV SCH (10:00)
[2024-05-20] MEDS: HYDROCORTISONE 100MG/2ML VIAL IV SCH (10:25)
[2024-05-20] MEDS: cefTRIAXone SOD 2 GM in DEXTROSE 5% (D5W) ADV/MINI-BAG 50 ML IV SCH (10:25)
[2024-05-20] MEDS: MIDODRINE 5 MG TAB PO SCH (11:36)
[2024-05-20] MEDS ORDERED: ONDANSETRON 4MG 2ML VIAL As Ordered ONE (21:32)
[2024-05-20 21:34] LABS: HEMOGLOBIN 9.9 g/dl (12.0-15.5); MEAN CORPUSCULAR VOLUME 97.1 fl (80.0-96.0); PLATELET COUNT, AUTOMATED 153 10^3/uL (150-450); RED BLOOD COUNT 3.09 10^6/uL (4.00-5.40); WHITE BLOOD COUNT 11.5 10^3/uL (4.0-10.0)
[2024-05-20] MEDS ORDERED: ONDANSETRON 4MG 2ML VIAL IV PRN (21:35)
[2024-05-21] VITALS (39 sets, daily range): BP systolic 81–198; BP diastolic 50–131; TEMP 98–99.3; O2SAT 88–100
[2024-05-21 04:52] LABS: BASO % 0.3 % (0.0-1.0); EOS % 0.3 % (0.0-3.0); HEMOGLOBIN 8.9 g/dl (12.0-15.5); LYMPH # 1.6 10^3/uL (1.5-5.0); LYMPH % 14.6 % (24.0-44.0); MEAN CORPUSCULAR HEMOGLOBIN 31.4 pg (27.0-33.0); MEAN CORPUSCULAR HGB CONC 31.8 g/dl (32.0-36.5); MEAN CORPUSCULAR VOLUME 98.9 fl (80.0-96.0); MONO # 1.1 10^3/uL (0.0-0.8); MONO % 9.6 % (2.0-8.0); NEUTROPHILS # 8.2 10^3/uL (1.5-8.5); NEUTROPHILS % 74.7 % (36.0-66.0); PLATELET COUNT, AUTOMATED 150 10^3/uL (150-450); RED BLOOD COUNT 2.83 10^6/uL (4.00-5.40)
[2024-05-21 05:23] LABS: ALBUMIN 3.6 G/DL (3.2-5.2); ALKALINE PHOSPHATASE 58 U/L (46-116); ALT/SGPT 17 U/L (7.0-40); AST/SGOT 18 U/L (<34); BILIRUBIN,TOTAL 0.6 MG/DL (0.3-1.2); BLOOD UREA NITROGEN 26 MG/DL (9-23); CALCIUM LEVEL 9.3 MG/DL (8.3-10.6); CARBON DIOXIDE LEVEL 27 MMOL/L (20-31); CHLORIDE LEVEL 110 MMOL/L (98-107); CREATININE FOR GFR 0.56 MG/DL (0.55-1.30); GLOMERULAR FILTRATION RATE > 60.0 (>32); GLUCOSE, FASTING 250 MG/DL (74-106); POTASSIUM SERUM 3.6 MMOL/L (3.5-5.1); SODIUM LEVEL 143 MMOL/L (136-145); TOTAL PROTEIN 6.2 G/DL (5.7-8.2)
[2024-05-21] MEDS: HYDROCORTISONE 100MG/2ML VIAL IV ONE (16:53)
[2024-05-21] MEDS: ACETAMINOPHEN 500 MG TAB PO SCH (16:54)
[2024-05-21] MEDS: GABAPENTIN 300 MG CAP PO SCH (20:25)
[2024-05-22] VITALS (22 sets, daily range): BP systolic 108–193; BP diastolic 56–160; TEMP 97–99.2; O2SAT 89–97
[2024-05-22 04:46] LABS: BASO % 0.3 % (0.0-1.0); EOS # 0.2 10^3/uL (0.0-0.5); EOS % 1.7 % (0.0-3.0); HEMATOCRIT 26.7 % (36.0-47.0); HEMOGLOBIN 8.6 g/dl (12.0-15.5); LYMPH # 2.5 10^3/uL (1.5-5.0); LYMPH % 26.8 % (24.0-44.0); MEAN CORPUSCULAR HEMOGLOBIN 31.6 pg (27.0-33.0); MEAN CORPUSCULAR HGB CONC 32.2 g/dl (32.0-36.5); MEAN CORPUSCULAR VOLUME 98.2 fl (80.0-96.0); MONO # 1.1 10^3/uL (0.0-0.8); MONO % 11.9 % (2.0-8.0); NEUTROPHILS # 5.5 10^3/uL (1.5-8.5); PLATELET COUNT, AUTOMATED 144 10^3/uL (150-450); RED BLOOD COUNT 2.72 10^6/uL (4.00-5.40); WHITE BLOOD COUNT 9.3 10^3/uL (4.0-10.0)
[2024-05-22 05:10] LABS: CORTISOL AM 6.9 UG/DL (4.3-22.4)
[2024-05-22 05:11] LABS: BLOOD UREA NITROGEN 29 MG/DL (9-23); CALCIUM LEVEL 9.3 MG/DL (8.3-10.6); CARBON DIOXIDE LEVEL 30 MMOL/L (20-31); CHLORIDE LEVEL 111 MMOL/L (98-107); CREATININE FOR GFR 0.54 MG/DL (0.55-1.30); GLOMERULAR FILTRATION RATE > 60.0 (>32); GLUCOSE, FASTING 161 MG/DL (74-106); POTASSIUM SERUM 3.7 MMOL/L (3.5-5.1); SODIUM LEVEL 144 MMOL/L (136-145)
[2024-05-22] MEDS: HYDROCORTISONE 100MG/2ML VIAL IV SCH (09:02)
[2024-05-22] MEDS ORDERED: FUROSEMIDE 40MG/4ML VIAL IV ONE (11:00)
[2024-05-22] MEDS: hydrALAZINE 20MG/ML 1ML VIAL IV STA (13:04)
[2024-05-22] MEDS: oxyCODONE 5MG TAB PO PRN (14:17)
[2024-05-22] MEDS ORDERED: **hydrALAZINE HCL** 25 MG TAB PO PRN (15:45)
[2024-05-22] MEDS: FUROSEMIDE 40MG/4ML VIAL IV ONE (16:00)
[2024-05-22] MEDS: SIMETHICONE 80MG CHEW TAB PO STA (16:30)
[2024-05-22] MEDS: LEVEMIR (INSULIN DETEMIR) 1 UNITS/0.01ML SC SCH (20:14)
[2024-05-23] VITALS (7 sets, daily range): BP systolic 102–138; BP diastolic 60–86; TEMP 97; O2SAT 88–94
[2024-05-23] MEDS: COSYNTROPIN 0.25 MG/ML 1ML VIAL IV ONE (06:08)
[2024-05-23 06:37] LABS: HEMATOCRIT 34.1 % (36.0-47.0); MEAN CORPUSCULAR HEMOGLOBIN 31.5 pg (27.0-33.0); MEAN CORPUSCULAR HGB CONC 33.4 g/dl (32.0-36.5); MEAN CORPUSCULAR VOLUME 94.2 fl (80.0-96.0); PLATELET COUNT, AUTOMATED 187 10^3/uL (150-450); RED BLOOD COUNT 3.62 10^6/uL (4.00-5.40); WHITE BLOOD COUNT 10.3 10^3/uL (4.0-10.0)
[2024-05-23 06:38] LABS: HEMOGLOBIN 11.4 g/dl (12.0-15.5)
[2024-05-23 06:57] LABS: BLOOD UREA NITROGEN 30 MG/DL (9-23); CALCIUM LEVEL 9.7 MG/DL (8.3-10.6); CARBON DIOXIDE LEVEL 32 MMOL/L (20-31); CHLORIDE LEVEL 106 MMOL/L (98-107); CREATININE FOR GFR 0.51 MG/DL (0.55-1.30); GLOMERULAR FILTRATION RATE > 60.0 (>32); GLUCOSE, FASTING 183 MG/DL (74-106); POTASSIUM SERUM 3.3 MMOL/L (3.5-5.1); SODIUM LEVEL 146 MMOL/L (136-145)
[2024-05-23] MEDS: POTASSIUM CHLORIDE 10MEQ SR TABLET PO ONE (08:08)
[2024-05-23] MEDS: HEPARIN SOD (PORCINE) 5000UNITS/ML 1ML VIAL/SYRINGE SQ SCH (20:34)
[2024-05-24] VITALS (9 sets, daily range): BP systolic 96–156; BP diastolic 60–88; TEMP 97–97.2; O2SAT 90–95
[2024-05-24 06:00] LABS: BASO # 0.1 10^3/uL (0.0-0.2); BASO % 0.6 % (0.0-1.0); EOS # 0.4 10^3/uL (0.0-0.5); EOS % 4.1 % (0.0-3.0); HEMATOCRIT 33.7 % (36.0-47.0); HEMOGLOBIN 11.1 g/dl (12.0-15.5); LYMPH # 2.5 10^3/uL (1.5-5.0); LYMPH % 24.2 % (24.0-44.0); MEAN CORPUSCULAR HEMOGLOBIN 30.7 pg (27.0-33.0); MEAN CORPUSCULAR HGB CONC 32.9 g/dl (32.0-36.5); MEAN CORPUSCULAR VOLUME 93.4 fl (80.0-96.0); MONO # 1.4 10^3/uL (0.0-0.8); MONO % 13.8 % (2.0-8.0); NEUTROPHILS # 5.8 10^3/uL (1.5-8.5); NEUTROPHILS % 56.6 % (36.0-66.0); PLATELET COUNT, AUTOMATED 210 10^3/uL (150-450); RED BLOOD COUNT 3.61 10^6/uL (4.00-5.40); WHITE BLOOD COUNT 10.3 10^3/uL (4.0-10.0)
[2024-05-24 06:35] LABS: BLOOD UREA NITROGEN 27 MG/DL (9-23); CALCIUM LEVEL 9.3 MG/DL (8.3-10.6); CARBON DIOXIDE LEVEL 31 MMOL/L (20-31); CHLORIDE LEVEL 104 MMOL/L (98-107); CREATININE FOR GFR 0.44 MG/DL (0.55-1.30); GLOMERULAR FILTRATION RATE > 60.0 (>32); GLUCOSE, FASTING 186 MG/DL (74-106); POTASSIUM SERUM 3.8 MMOL/L (3.5-5.1); SODIUM LEVEL 141 MMOL/L (136-145)
[2024-05-24] MEDS: LEVEMIR (INSULIN DETEMIR) 1 UNITS/0.01ML SC SCH (21:54)
[2024-05-25 04:00] VITALS: BP 122/77; O2SAT 92
[2024-05-25] MEDS ORDERED: IPRATROPIUM 0.5MG/ALBUTEROL 2.5MG INH SOL UD 3ML (DUONEB) NEB PRN (08:45)
[2024-05-25 12:00] VITALS: BP 127/81; TEMP 99.2; O2SAT 91
[2024-05-25] MEDS ORDERED: PILL CUTTER 1 EACH XX ONE (16:51)
[2024-05-25 20:10] VITALS: BP 152/90; TEMP 98.6; O2SAT 90
[2024-05-25 20:11] VITALS: BP_SYST 100; BP_SYST 97; BP_DIAS 68; BP_DIAS 71
[2024-05-25 23:51] VITALS: O2SAT 88
[2024-05-25 23:52] VITALS: O2SAT 93
[2024-05-26] VITALS (9 sets, daily range): BP systolic 124–144; BP diastolic 68–71; TEMP 96.8–98; O2SAT 85–94
[2024-05-26 06:34] LABS: BASO % 0.3 % (0.0-1.0); EOS # 0.4 10^3/uL (0.0-0.5); EOS % 4.4 % (0.0-3.0); HEMATOCRIT 36.2 % (36.0-47.0); HEMOGLOBIN 11.8 g/dl (12.0-15.5); LYMPH # 2.3 10^3/uL (1.5-5.0); LYMPH % 24.3 % (24.0-44.0); MEAN CORPUSCULAR HEMOGLOBIN 31.6 pg (27.0-33.0); MEAN CORPUSCULAR HGB CONC 32.6 g/dl (32.0-36.5); MEAN CORPUSCULAR VOLUME 96.8 fl (80.0-96.0); MONO # 1.6 10^3/uL (0.0-0.8); NEUTROPHILS # 5.1 10^3/uL (1.5-8.5); PLATELET COUNT, AUTOMATED 223 10^3/uL (150-450); RED BLOOD COUNT 3.74 10^6/uL (4.00-5.40); WHITE BLOOD COUNT 9.5 10^3/uL (4.0-10.0)
[2024-05-26 07:01] LABS: BLOOD UREA NITROGEN 21 MG/DL (9-23); CALCIUM LEVEL 9.3 MG/DL (8.3-10.6); CARBON DIOXIDE LEVEL 29 MMOL/L (20-31); CHLORIDE LEVEL 106 MMOL/L (98-107); CREATININE FOR GFR 0.49 MG/DL (0.55-1.30); GLOMERULAR FILTRATION RATE > 60.0 (>32); GLUCOSE, FASTING 153 MG/DL (74-106); POTASSIUM SERUM 4.1 MMOL/L (3.5-5.1); SODIUM LEVEL 139 MMOL/L (136-145)
[2024-05-27] MEDS: NYSTATIN 100,000 UNITS/GM TOPICAL PWD 15GM TOP PRN (00:46)
[2024-05-27 02:47] VITALS: O2SAT 92
[2024-05-27 04:15] VITALS: BP 144/69; TEMP 97; O2SAT 94
[2024-05-27 08:00] VITALS: BP 157/84; TEMP 96.6; O2SAT 94
[2024-05-27] MEDS ORDERED: VARIBAR PUDDING 40% w/v 230ML TUBE As Ordered ONE (10:05)
[2024-05-27] MEDS ORDERED: VARIBAR NECTAR 40% w/v 240ML SUSP BTL As Ordered ONE (10:05)
[2024-05-27] MEDS ORDERED: BARIUM SULFATE 700 MG TABLET (E-Z-DISK) As Ordered ONE (10:05)
[2024-05-27] MEDS ORDERED: E-Z-PAQUE 96% w/w SUSP 176GM BTL As Ordered ONE (10:05)
[2024-05-27 12:00] VITALS: BP 112/81; TEMP 97.2; O2SAT 92
[2024-05-28 04:00] VITALS: BP 119/79; TEMP 97.3; O2SAT 94
[2024-05-28 12:00] VITALS: BP 149/86; TEMP 96.8; O2SAT 93
[2024-05-28 20:00] VITALS: O2SAT 95
[2024-05-29 05:00] VITALS: O2SAT 94
[2024-05-29 09:30] VITALS: BP_SYST 96; TEMP 96.8; O2SAT 89
[2024-05-29 11:40] VITALS: TEMP 95.7; O2SAT 86
[2024-05-29 11:45] VITALS: O2SAT 93
[2024-05-29 13:00] VITALS: BP 118/76; O2SAT 92
[2024-05-29 13:33] LABS: BASO # 0.1 10^3/uL (0.0-0.2); BASO % 0.5 % (0.0-1.0); EOS # 0.4 10^3/uL (0.0-0.5); EOS % 3.7 % (0.0-3.0); HEMATOCRIT 34.1 % (36.0-47.0); LYMPH # 2.6 10^3/uL (1.5-5.0); LYMPH % 23.1 % (24.0-44.0); MEAN CORPUSCULAR HEMOGLOBIN 31.8 pg (27.0-33.0); MEAN CORPUSCULAR HGB CONC 32.3 g/dl (32.0-36.5); MEAN CORPUSCULAR VOLUME 98.6 fl (80.0-96.0); MONO # 1.4 10^3/uL (0.0-0.8); MONO % 12.6 % (2.0-8.0); NEUTROPHILS # 6.5 10^3/uL (1.5-8.5); PLATELET COUNT, AUTOMATED 316 10^3/uL (150-450); RED BLOOD COUNT 3.46 10^6/uL (4.00-5.40); WHITE BLOOD COUNT 11.1 10^3/uL (4.0-10.0)
[2024-05-29 14:14] LABS: BLOOD UREA NITROGEN 23 MG/DL (9-23); CALCIUM LEVEL 9.4 MG/DL (8.3-10.6); CARBON DIOXIDE LEVEL 30 MMOL/L (20-31); CHLORIDE LEVEL 102 MMOL/L (98-107); GLOMERULAR FILTRATION RATE > 60.0 (>32); GLUCOSE, FASTING 129 MG/DL (74-106); MAGNESIUM LEVEL 2.3 MG/DL (1.8-2.4); POTASSIUM SERUM 4.1 MMOL/L (3.5-5.1); SODIUM LEVEL 139 MMOL/L (136-145)
[2024-05-30 04:00] VITALS: BP 155/77; TEMP 97.2; O2SAT 94
[2024-05-30] MEDS: MOM 30ML SUSPENSION UDC PO PRN (16:43)
[2024-05-30 21:00] VITALS: O2SAT 91
[2024-05-31 04:00] VITALS: BP 142/70; TEMP 97.2; O2SAT 93
[2024-05-31] MEDS: BISACODYL 10MG SUPP PR PRN (07:48)
[2024-05-31] MEDS ORDERED: MIRALAX *UNIT DOSE* 17GM PACKET PO PRN (10:00)
[2024-05-31] MEDS: SENOKOT S TAB PO SCH (20:09)
[2024-05-31 21:00] VITALS: O2SAT 91
[2024-06-01 04:00] VITALS: BP 144/64; TEMP 97.2; O2SAT 94
[2024-06-01 21:00] VITALS: O2SAT 95
[2024-06-02 04:21] VITALS: BP 150/76; TEMP 97; O2SAT 93
[2024-06-03 03:46] VITALS: BP 105/72; TEMP 97; O2SAT 95
[2024-06-03 22:13] VITALS: O2SAT 95
[2024-06-04 03:30] VITALS: BP 103/70; TEMP 97; O2SAT 95
[2024-06-04 04:28] VITALS: O2SAT 95
[2024-06-05 03:10] VITALS: BP 101/69; TEMP 97.3; O2SAT 95
[2024-06-05 09:53] LABS: HEMOGLOBIN A1c 6.6 % (4.0-6.0)
[2024-06-05] MEDS ORDERED: SENN1TAB96 PO (12:15)
[2024-06-05] MEDS ORDERED: GABA-1172 PO (12:15)
[2024-06-05] MEDS ORDERED: OXYC-517 PO (12:15)
[2024-06-05] MEDS ORDERED: METF-1191 PO (12:18)
[2024-06-05] MEDS: LEVEMIR (INSULIN DETEMIR) 1 UNITS/0.01ML SC SCH (21:35)
[2024-06-06 04:00] VITALS: BP 100/68; TEMP 97; O2SAT 93
== END 2024-06-06 11:51 | DRG 536 ==
LOC: M ED 17:26 → M ED INP 05-19 02:41 → M ICU 05-19 14:42 → M MSPAV 05-22 17:41
PROVIDERS: ADMIT Student in an Organized Health Care Education/Training Program; ATTEND Internal Medicine
PROC: 30233J1 Transfusion of Nonautologous Serum Albumin into Peripheral Vein, Percutaneous Approach (ICD-10-PCS; principal; 2024-05-19)
PROC: 30233N1 Transfusion of Nonautologous Red Blood Cells into Peripheral Vein, Percutaneous Approach (ICD-10-PCS; 2024-05-22)
PROC: B246ZZZ Ultrasonography of Right and Left Heart (ICD-10-PCS; 2024-05-23)
DX: S32.501A Unspecified fracture of right pubis, initial encounter for closed fracture (principal); I13.0 Hypertensive heart and chronic kidney disease with heart failure and stage 1 through stage 4 chronic kidney disease, or unspecified chronic kidney disease; E27.40 Unspecified adrenocortical insufficiency; N39.0 Urinary tract infection, site not specified; J98.11 Atelectasis; R57.9 Shock, unspecified; D62 Acute posthemorrhagic anemia; Z66 Do not resuscitate; E11.22 Type 2 diabetes mellitus with diabetic chronic kidney disease; R26.89 Other abnormalities of gait and mobility; W01.0XXA Fall on same level from slipping, tripping and stumbling without subsequent striking against object, initial encounter; Y92.009 Unspecified place in unspecified non-institutional (private) residence as the place of occurrence of the external cause; S52.131A Displaced fracture of neck of right radius, initial encounter for closed fracture; G47.33 Obstructive sleep apnea (adult) (pediatric); I50.9 Heart failure, unspecified; I25.2 Old myocardial infarction; N18.9 Chronic kidney disease, unspecified; E55.9 Vitamin D deficiency, unspecified; I25.10 Atherosclerotic heart disease of native coronary artery without angina pectoris; H40.9 Unspecified glaucoma; G40.909 Epilepsy, unspecified, not intractable, without status epilepticus; K21.9 Gastro-esophageal reflux disease without esophagitis; L89.152 Pressure ulcer of sacral region, stage 2; R13.12 Dysphagia, oropharyngeal phase; E87.6 Hypokalemia; G89.29 Other chronic pain; M54.81 Occipital neuralgia; Z90.79 Acquired absence of other genital organ(s); Z90.49 Acquired absence of other specified parts of digestive tract; Z79.82 Long term (current) use of aspirin; Z79.84 Long term (current) use of oral hypoglycemic drugs; Z79.899 Other long term (current) drug therapy; Z88.0 Allergy status to penicillin; Z88.2 Allergy status to sulfonamides; Z88.5 Allergy status to narcotic agent; Z88.8 Allergy status to other drugs, medicaments and biological substances; Z91.040 Latex allergy status; Z96.641 Presence of right artificial hip joint

== ENCOUNTER → 2024-07-02 | Outpatient (CLI) | payer MEDICARE, MEDICAID ==
[~2024-07-02] MED LIST changes: +CYAN-1 PO; +METF-1191 PO; +MIDO5TA PO; +OMEP-173 PO; +OXYC-517 PO; +REPA140I INJ; +SENN1TAB96 PO; +VITAD1000T PO
== END ==
LOC: M SOG 10:35
PROVIDERS: ATTEND Physician Assistant
DX: M25.521 Pain in right elbow (principal); S52.134D Nondisplaced fracture of neck of right radius, subsequent encounter for closed fracture with routine healing

== ENCOUNTER → 2024-07-30 | Outpatient (CLI) | payer MEDICARE, MEDICAID | LOC: M SOG 08:42 | PROVIDERS: ATTEND Physician Assistant | DX: S32.501D Unspecified fracture of right pubis, subsequent encounter for fracture with routine healing (principal); M25.521 Pain in right elbow ==

== ENCOUNTER → 2024-08-26 | Outpatient (CLI) | payer MEDICARE, OTHER | LOC: M RAD 15:12 | PROVIDERS: ATTEND Internal Medicine | DX: I70.201 Unspecified atherosclerosis of native arteries of extremities, right leg (principal) ==

== ENCOUNTER → 2024-09-16 | Outpatient (CLI) | payer MEDICARE, MEDICAID ==
[~2024-09-16] MED LIST changes: -AMIT24CA7 PO; +LUBI24CA32 PO
== END ==
LOC: M WUC 15:04
PROVIDERS: ATTEND Nurse Practitioner Adult Health
DX: M79.641 Pain in right hand (principal)

== ENCOUNTER → 2024-10-05 | Outpatient (CLI) | payer MEDICARE, MEDICAID | LOC: M RAD 13:58 | PROVIDERS: ATTEND Internal Medicine | DX: I73.9 Peripheral vascular disease, unspecified (principal); I70.8 Atherosclerosis of other arteries ==

== ENCOUNTER 2024-10-30 10:06 | Emergency (ER) | payer MEDICARE, MEDICAID ==
[~2024-10-30] VITALS: Ht 154.9 cm; Wt 77.5 kg
[2024-10-30 11:17] LABS: BASO % 0.6 % (0.0-1.0); EOS # 0.1 10^3/uL (0.0-0.5); EOS % 1.8 % (0.0-3.0); HEMATOCRIT 38.4 % (36.0-47.0); HEMOGLOBIN 13.1 g/dl (12.0-15.5); LYMPH # 2.6 10^3/uL (1.5-5.0); LYMPH % 35.7 % (24.0-44.0); MEAN CORPUSCULAR HGB CONC 34.1 g/dl (32.0-36.5); MEAN CORPUSCULAR VOLUME 93.7 fl (80.0-96.0); MONO # 0.6 10^3/uL (0.0-0.8); MONO % 8.9 % (2.0-8.0); NEUTROPHILS # 3.8 10^3/uL (1.5-8.5); NEUTROPHILS % 52.7 % (36.0-66.0); PLATELET COUNT, AUTOMATED 240 10^3/uL (150-450); WHITE BLOOD COUNT 7.2 10^3/uL (4.0-10.0)
[2024-10-30 11:36] LABS: PARTIAL THROMBOPLASTIN TIME 28.6 SECONDS (24.8-34.2); PROTHROMBIN TIME 13.5 SECONDS (12.5-14.5)
[2024-10-30 12:04] LABS: ALBUMIN 3.5 G/DL (3.2-5.2); ALKALINE PHOSPHATASE 78 U/L (35-104); ALT/SGPT 12 U/L (7.0-40); AST/SGOT 14 U/L (<34); BILIRUBIN,DIRECT 0.2 MG/DL (<0.4); BILIRUBIN,TOTAL 0.7 MG/DL (0.3-1.2); BLOOD UREA NITROGEN 24 MG/DL (9-23); CALCIUM LEVEL 8.9 MG/DL (8.3-10.6); CARBON DIOXIDE LEVEL 29 MMOL/L (20-31); CHLORIDE LEVEL 106 MMOL/L (98-107); CK-MB VALUE MASS < 1.0 NG/ML (<3.6); CREATININE FOR GFR 0.53 MG/DL (0.55-1.30); FREE T4 0.92 NG/DL (0.89-1.76); GLOMERULAR FILTRATION RATE > 60.0 (>32); GLUCOSE, FASTING 160 MG/DL (74-106); POTASSIUM SERUM 4.1 MMOL/L (3.5-5.1); SODIUM LEVEL 142 MMOL/L (136-145); THYROID STIMULATING HORMONE 0.859 uIU/ML (0.55-4.78); TOTAL PROTEIN 6.6 G/DL (5.7-8.2)
[2024-10-30 12:05] LABS: CPK CREATINE PHOSPHOKINASE 51 U/L (34-145); MB/CK RELATIVE INDEX 1.96 (< OR =4)
[2024-10-30 15:21] VITALS: BP 98/60; TEMP 98.5; O2SAT 97
== END 2024-10-30 15:33 | disposition home or self-care (01) ==
LOC: EDBD 10:06 → M ED 10:06
DX: H81.4 Vertigo of central origin (principal); I44.0 Atrioventricular block, first degree; E78.5 Hyperlipidemia, unspecified; I10 Essential (primary) hypertension; Z86.79 Personal history of other diseases of the circulatory system; Z88.0 Allergy status to penicillin; Z88.2 Allergy status to sulfonamides; Z88.8 Allergy status to other drugs, medicaments and biological substances; Z91.040 Latex allergy status; Z79.82 Long term (current) use of aspirin; Z79.4 Long term (current) use of insulin; Z79.899 Other long term (current) drug therapy

== ENCOUNTER → 2025-03-11 | Outpatient (CLI) | payer MEDICARE, MEDICAID ==
[~2025-03-11] MED LIST changes: -BRIM1OPD OU; +BRIM5DRO25 OU; +LEVE1TAB43 PO; -LEVE500T88 PO; +MORP-138 PO; -MORP15TASA PO
== END ==
LOC: M LAB 13:55
PROVIDERS: ATTEND Internal Medicine
DX: Z11.1 Encounter for screening for respiratory tuberculosis (principal)

== ENCOUNTER → 2025-06-15 | Outpatient (REF) | payer MEDICARE, MEDICAID, OTHER ==
[2025-06-15 13:26] LABS: RSV AMPLIFICATION NEGATIVE (NEGATIVE)
== END ==
LOC: M LAB REF 12:07
PROVIDERS: ATTEND Internal Medicine
DX: R05.1 Acute cough (principal); R06.00 Dyspnea, unspecified

== ENCOUNTER 2025-07-09 17:31 | Inpatient (IN) | payer MEDICARE, MEDICAID ==
[~2025-07-09] VITALS: Ht 154.9 cm; Wt 82.4 kg
[2025-07-09 18:52] LABS: PLATELET COUNT, AUTOMATED 210 10^3/uL (150-450)
[2025-07-09 19:15] VITALS: BP 156/102
[2025-07-09] MEDS: METOPROLOL SUCC. 50 MG *XL* TAB PO ONE (19:15)
[2025-07-09 19:21] LABS: CALCIUM LEVEL 9.4 MG/DL (8.3-10.6); CARBON DIOXIDE LEVEL 28.0 MMOL/L (20-31); CHLORIDE LEVEL 100.0 MMOL/L (98-107); CREATININE FOR GFR 0.61 MG/DL (0.55-1.30); GLOMERULAR FILTRATION RATE 85.9 (>32); INR 0.89; POTASSIUM SERUM 3.7 MMOL/L (3.5-5.1); SODIUM LEVEL 139.0 MMOL/L (136-145)
[2025-07-09] MEDS ORDERED: FAMO20TA PO (19:46)
[2025-07-09] MEDS ORDERED: THERTAB52 PO (19:46)
[2025-07-09] MEDS ORDERED: CLOP75TA2 PO (19:46)
[2025-07-09] MEDS ORDERED: SERT50TA29 PO (19:46)
[2025-07-09] MEDS ORDERED: LEVE750XR PO (19:46)
[2025-07-09] MEDS ORDERED: MIDO10TA3 PO (19:46)
[2025-07-09] MEDS ORDERED: MOM 30 ML SUSPENSION UDC PO PRN (19:50)
[2025-07-09] MEDS ORDERED: GLUCAGON INJ 1 MG VIAL SC PRN (19:50)
[2025-07-09] MEDS ORDERED: DEXTROSE 50% 50 ML SYRINGE IV PRN (19:50)
[2025-07-09] MEDS ORDERED: GLUCOSE 4 GM CHEW PO PRN (19:50)
[2025-07-09] MEDS ORDERED: HOME MED LIST COMPLETE! XX SCH (19:50)
[2025-07-09] MEDS: ONDANSETRON 4MG/2ML VIAL IV PRN (20:05)
[2025-07-09] MEDS: MORPHINE 2 MG/ML 1 ML VIAL IV PRN (20:06)
[2025-07-09] MEDS: ACETAMINOPHEN 325 MG TAB PO PRN (20:40)
[2025-07-09] MEDS: NS (Normal Saline) 0.9% 1,000 ML IV SCH (20:40)
[2025-07-09] MEDS: HYDROMORPHONE HCL 0.5 MG/0.5 ML SYRINGE IV PRN (23:16)
[2025-07-09 23:39] VITALS: BP 146/86; TEMP 97.7; O2SAT 96
[2025-07-10] VITALS (58 sets, daily range): BP systolic 70–146; BP diastolic 45–86; TEMP 97.5–98.7; O2SAT 79–98
[2025-07-10] MEDS: INSULIN LISPRO (NovoLOG) PER UNIT SC SCH (00:44)
[2025-07-10 07:09] LABS: PLATELET COUNT, AUTOMATED 216 10^3/uL (150-450)
[2025-07-10 07:36] LABS: ALT/SGPT 16.0 U/L (7.0-40); AST/SGOT 36.0 U/L (<34); CALCIUM LEVEL 8.6 MG/DL (8.3-10.6); CARBON DIOXIDE LEVEL 30.0 MMOL/L (20-31); CHLORIDE LEVEL 104.0 MMOL/L (98-107); CREATININE FOR GFR 0.79 MG/DL (0.55-1.30); GLOMERULAR FILTRATION RATE 71.9 (>32); MAGNESIUM LEVEL 1.9 MG/DL (1.8-2.4); POTASSIUM SERUM 4.1 MMOL/L (3.5-5.1); SODIUM LEVEL 144.0 MMOL/L (136-145)
[2025-07-10] MEDS ORDERED: NITROGLYCERIN 0.4 MG SUBL TABLET SL PRN (08:00)
[2025-07-10] MEDS ORDERED: MIDODRINE 5 MG TAB PO PRN (08:00)
[2025-07-10] MEDS ORDERED: DESFLURANE 240 ML INHALANT As Ordered ONE (08:07)
[2025-07-10] MEDS ORDERED: ONDANSETRON 4MG/2ML VIAL As Ordered ONE (08:10)
[2025-07-10] MEDS ORDERED: ETOMIDATE 20 MG/10 ML VIAL As Ordered ONE (08:10)
[2025-07-10] MEDS ORDERED: LIDOCAINE 2% 100 MG/5 ML SDV (FOR ANES.) As Ordered ONE (08:10)
[2025-07-10] MEDS ORDERED: SUGAMMADEX SODIUM 500 MG/5 ML VIAL As Ordered ONE (08:34)
[2025-07-10] MEDS ORDERED: ROCURONIUM BROMIDE 50MG/5ML VIAL As Ordered ONE (08:34)
[2025-07-10] MEDS ORDERED: PHENYLephrine 500MCG 5ML (100MCG/ML) SYRINGE As Ordered ONE (08:59)
[2025-07-10] MEDS: TRANEXAMIC ACID 100 MG/ML 10ML VIAL As Ordered ONE (09:12)
[2025-07-10] MEDS: VANCOMYCIN 1000MG/20ML VIAL As Ordered ONE (10:43)
[2025-07-10] MEDS ORDERED: PHENYLEPHRINE 10MG/ML 1ML VIAL As Ordered ONE (11:04)
[2025-07-10] MEDS ORDERED: HYDROMORPHONE HCL 0.5 MG/0.5 ML SYRINGE IV PRN (11:20)
[2025-07-10] MEDS: PHENYLEPHRINE HCL INJ 50 MG in D5W 495 ML IV SCH (11:45)
[2025-07-10] MEDS: LR 1,000 ML IV ONE (12:05)
[2025-07-10] MEDS ORDERED: NOREPINEPHRINE 4 MG IN D5W 250 ML IVBAG (16 MCG/ML) As Ordered ONE (12:19)
[2025-07-10] MEDS: FAMOTIDINE 20 MG TAB PO SCH (13:00)
[2025-07-10] MEDS: PANTOPRAZOLE 40MG TAB PO SCH (13:00)
[2025-07-10] MEDS: SERTRALINE HCL 50 MG TAB PO SCH (13:00)
[2025-07-10 13:20] LABS: ABG BASE EXCESS -3.3 (-2.0-2.0); ABG HCO3 23.5 MMOL/L (22.0-26.0); ABG O2 SATURATION 98.3 % (95.0-99.0); ABG PARTIAL PRESSURE CO2 49.3 mmHg (35.0-45.0); ABG PARTIAL PRESSURE O2 126.6 mmHg (75.0-100.0); ABG STANDARD HCO3 21.8 MMOL/L. (22.0-26.0); ABG TOTAL CO2 25.1 MMOL/L (23.0-31.0); ABG pH (ARTERIAL) 7.297 UNITS (7.350-7.450)
[2025-07-10 14:18] LABS: BASO # 0.0 10^3/uL (0.0-0.2); BASO % 0.2 % (0.0-1.0); EOS # 0.0 10^3/uL (0.0-0.5); EOS % 0.1 % (0.0-3.0); LYMPH # 2.0 10^3/uL (1.5-5.0); LYMPH % 12.0 % (24.0-44.0); MONO # 2.1 10^3/uL (0.0-0.8); MONO % 12.3 % (2.0-8.0); NEUTROPHILS # 12.6 10^3/uL (1.5-8.5); NEUTROPHILS % 74.9 % (36.0-66.0); PLATELET COUNT, AUTOMATED 203 10^3/uL (150-450)
[2025-07-10 14:44] LABS: CORTISOL PM 17.6 UG/DL (3.1-16.7)
[2025-07-10 14:49] LABS: ALT/SGPT 103.0 U/L (7.0-40); AST/SGOT 239.0 U/L (<34); CALCIUM LEVEL 8.0 MG/DL (8.3-10.6); CARBON DIOXIDE LEVEL 28.0 MMOL/L (20-31); CHLORIDE LEVEL 105.0 MMOL/L (98-107); CREATININE FOR GFR 0.72 MG/DL (0.55-1.30); GLOMERULAR FILTRATION RATE 80.4 (>32); MAGNESIUM LEVEL 1.6 MG/DL (1.8-2.4); POTASSIUM SERUM 4.2 MMOL/L (3.5-5.1); SODIUM LEVEL 142.0 MMOL/L (136-145)
[2025-07-10] MEDS: DOXYCYCLINE HYCLATE 100 MG in DEXTROSE 5% (D5W) MINI-BAG PLU 100 ML IV SCH (15:22)
[2025-07-10] MEDS: ENOXAPARIN 40 MG/0.4 ML SYRINGE (J1650 PER 10MG) SC SCH (15:22)
[2025-07-10] MEDS ORDERED: ISOVUE-370 76% 100 ML VIAL As Ordered ONE (16:26)
[2025-07-10] MEDS ORDERED: HEPARIN SOD 5000 UNITS/ML 1 ML VIAL/SYRINGE IV PRN (17:00)
[2025-07-10] MEDS: ceFAZolin SODIUM 2 GM in DEXTROSE 5% (D5W) ADV/MINI-BAG 50 ML IV SCH (17:20)
[2025-07-10] MEDS: ACETAMINOPHEN *IV* 1,000 MG in IV 1 EA IV STA (17:20)
[2025-07-10] MEDS: HEPARIN SOD 5000 UNITS/ML 1 ML VIAL/SYRINGE IV ONE (17:24)
[2025-07-10] MEDS: HEPARIN DRIP 25,000 UNITS in IV 1 EA IV SCH (17:25)
[2025-07-10 17:40] LABS: PLATELET COUNT, AUTOMATED 165 10^3/uL (150-450)
[2025-07-10] MEDS: levETIRAcetam INJection 750 MG in D5W 100 ML IV SCH (19:23)
[2025-07-10] MEDS: GABAPENTIN 300 MG CAP PO SCH (21:00)
[2025-07-10] MEDS: LR 500 ML IV ONE (22:23)
[2025-07-10 22:29] LABS: PLATELET COUNT, AUTOMATED 219 10^3/uL (150-450)
[2025-07-10 23:17] LABS: CALCIUM LEVEL 7.7 MG/DL (8.3-10.6); CARBON DIOXIDE LEVEL 27.0 MMOL/L (20-31); CHLORIDE LEVEL 104.0 MMOL/L (98-107); CREATININE FOR GFR 0.82 MG/DL (0.55-1.30); GLOMERULAR FILTRATION RATE 68.8 (>32); POTASSIUM SERUM 3.5 MMOL/L (3.5-5.1); SODIUM LEVEL 139.0 MMOL/L (136-145)
[2025-07-11] VITALS (54 sets, daily range): BP systolic 66–131; BP diastolic 50–86; TEMP 97.1–99.7; O2SAT 93–100
[2025-07-11] MEDS: NS 500 ML IV ONE (00:23)
[2025-07-11] MEDS: NOREPINEPHRINE 4MG IN D5 250ML 4 MG in IV 1 EA IV SCH (00:30)
[2025-07-11] MEDS: OLANZapine INTRAMUSCULAR 10MG VIAL IM ONE (02:00)
[2025-07-11 04:15] LABS: BASO # 0.1 10^3/uL (0.0-0.2); BASO % 0.3 % (0.0-1.0); EOS # 0.0 10^3/uL (0.0-0.5); EOS % 0.1 % (0.0-3.0); LYMPH # 2.8 10^3/uL (1.5-5.0); LYMPH % 15.5 % (24.0-44.0); MONO % 15.3 % (2.0-8.0); NEUTROPHILS # 12.3 10^3/uL (1.5-8.5); NEUTROPHILS % 68.1 % (36.0-66.0); PLATELET COUNT, AUTOMATED 210 10^3/uL (150-450)
[2025-07-11 04:17] LABS: MONO # 2.7 10^3/uL (0.0-0.8)
[2025-07-11 04:59] LABS: MAGNESIUM LEVEL 1.6 MG/DL (1.8-2.4)
[2025-07-11 05:14] LABS: ALT/SGPT 88.0 U/L (7.0-40); AST/SGOT 169.0 U/L (<34); CALCIUM LEVEL 7.4 MG/DL (8.3-10.6); CARBON DIOXIDE LEVEL 26.0 MMOL/L (20-31); CHLORIDE LEVEL 105.0 MMOL/L (98-107); CREATININE FOR GFR 0.72 MG/DL (0.55-1.30); GLOMERULAR FILTRATION RATE 80.4 (>32); POTASSIUM SERUM 3.8 MMOL/L (3.5-5.1); SODIUM LEVEL 139.0 MMOL/L (136-145)
[2025-07-11] MEDS: MAG SULF 1GM/100ML (MAG RUN) 1 GM in IV 1 EA IV ONE (05:28)
[2025-07-11] MEDS: PANTOPRAZOLE 40MG VIAL IV SCH (08:30)
[2025-07-11] MEDS: cefTRIAXone SOD 2 GM in DEXTROSE 5% (D5W) ADV/MINI-BAG 50 ML IV SCH (08:31)
[2025-07-11] MEDS: CLOPIDOGREL 75 MG TAB PO SCH (08:55)
[2025-07-11] MEDS ORDERED: ASPIRIN 300 MG SUPP PR SCH (09:05)
[2025-07-11] MEDS: ASPIRIN 300 MG SUPP PR SCH (09:33)
== END 2025-07-11 13:16 | disposition short-term general hospital (02) | DRG 521 ==
LOC: M ED 17:31 → EDBD 17:31 → M ED INP 19:48 → M MSPAV 23:42 → M ICU 07-10 12:50
PROVIDERS: ADMIT Internal Medicine; ATTEND Internal Medicine
PROC: B246ZZZ Ultrasonography of Right and Left Heart (ICD-10-PCS; 2025-07-10)
PROC: 0SRS0J9 Replacement of Left Hip Joint, Femoral Surface with Synthetic Substitute, Cemented, Open Approach (ICD-10-PCS; principal; 2025-07-10 08:30)
DX: S72.002A Fracture of unspecified part of neck of left femur, initial encounter for closed fracture (principal); J18.9 Pneumonia, unspecified organism; I13.0 Hypertensive heart and chronic kidney disease with heart failure and stage 1 through stage 4 chronic kidney disease, or unspecified chronic kidney disease; I24.89 Other forms of acute ischemic heart disease; I50.32 Chronic diastolic (congestive) heart failure; I26.99 Other pulmonary embolism without acute cor pulmonale; I25.10 Atherosclerotic heart disease of native coronary artery without angina pectoris; G40.909 Epilepsy, unspecified, not intractable, without status epilepticus; G47.33 Obstructive sleep apnea (adult) (pediatric); E11.22 Type 2 diabetes mellitus with diabetic chronic kidney disease; R29.6 Repeated falls; I25.2 Old myocardial infarction; H40.9 Unspecified glaucoma; N18.9 Chronic kidney disease, unspecified; G89.29 Other chronic pain; M54.81 Occipital neuralgia; Z90.79 Acquired absence of other genital organ(s); Z96.641 Presence of right artificial hip joint; Z90.49 Acquired absence of other specified parts of digestive tract; Z79.02 Long term (current) use of antithrombotics/antiplatelets; Z79.82 Long term (current) use of aspirin; Z79.84 Long term (current) use of oral hypoglycemic drugs; Z88.0 Allergy status to penicillin; Z88.2 Allergy status to sulfonamides; Z88.8 Allergy status to other drugs, medicaments and biological substances; Z91.040 Latex allergy status; W19.XXXA Unspecified fall, initial encounter; Y92.9 Unspecified place or not applicable; R26.89 Other abnormalities of gait and mobility

== ENCOUNTER 2025-07-16 13:18 | Observation (INO) | payer MEDICARE, MEDICAID ==
[~2025-07-16 13:18] MED LIST changes: +CLOP75TA2 PO; +FAMO20TA PO; +MIDO10TA3 PO; +SERT50TA29 PO; +THERTAB52 PO
[2025-07-17 21:23] VITALS: BP 151/70; TEMP 98.6; O2SAT 98
[2025-07-17] MEDS ORDERED: MIDODRINE 5 MG TAB PO PRN (22:05)
[2025-07-17 22:58] LABS: BASO # 0.1 10^3/uL (0.0-0.2); BASO % 0.5 % (0.0-1.0); EOS # 0.5 10^3/uL (0.0-0.5); EOS % 4.3 % (0.0-3.0); LYMPH # 1.9 10^3/uL (1.5-5.0); LYMPH % 15.5 % (24.0-44.0); MONO # 1.7 10^3/uL (0.0-0.8); MONO % 13.5 % (2.0-8.0); NEUTROPHILS # 7.7 10^3/uL (1.5-8.5); NEUTROPHILS % 62.4 % (36.0-66.0); PLATELET COUNT, AUTOMATED 347 10^3/uL (150-450)
[2025-07-17 23:39] VITALS: BP 142/72; TEMP 98.3; O2SAT 96
[2025-07-18 00:11] LABS: MAGNESIUM LEVEL 2.0 MG/DL (1.8-2.4); PHOSPHORUS LEVEL 3.4 MG/DL (2.4-5.1)
[2025-07-18 00:14] LABS: CPK CREATINE PHOSPHOKINASE 50.0 U/L (34-145)
[2025-07-18 00:15] LABS: ALT/SGPT 17.0 U/L (7.0-40); AST/SGOT 18.0 U/L (<34); CALCIUM LEVEL 8.4 MG/DL (8.3-10.6); CARBON DIOXIDE LEVEL 34.0 MMOL/L (20-31); CHLORIDE LEVEL 101.0 MMOL/L (98-107); CREATININE FOR GFR 0.55 MG/DL (0.55-1.30); GLOMERULAR FILTRATION RATE 88.1 (>32); IRON (FE) 20.0 UG/DL (50-170); PERCENT SATURATION 9.3 % (13.2-45.0); POTASSIUM SERUM 4.0 MMOL/L (3.5-5.1); SODIUM LEVEL 142.0 MMOL/L (136-145)
[2025-07-18] MEDS ORDERED: GLUCAGON INJ 1 MG VIAL SC PRN (01:00)
[2025-07-18] MEDS ORDERED: GLUCOSE 4 GM CHEW PO PRN (01:00)
[2025-07-18] MEDS ORDERED: DEXTROSE 50% 50 ML SYRINGE IV PRN (01:00)
[2025-07-18] MEDS ORDERED: RAMELTEON 8 MG TAB PO PRN (01:00)
[2025-07-18] MEDS ORDERED: DICLOFENAC EPOLAMINE 1.3% PATCH TOP SCH (01:00)
[2025-07-18] MEDS ORDERED: DOCUSATE SODIUM 100 MG CAPSULE PO PRN (01:00)
[2025-07-18] MEDS ORDERED: ENOX80IN3 SC (03:20)
[2025-07-18] MEDS ORDERED: ACET-841 PO (03:20)
[2025-07-18] MEDS ORDERED: INSU100V12 SQ (03:20)
[2025-07-18] MEDS ORDERED: BRIM0.2S13 OP (03:20)
[2025-07-18] MEDS ORDERED: TIMO0.5S20 OP (03:20)
[2025-07-18] MEDS ORDERED: DICL1PAT6 TD (03:20)
[2025-07-18] MEDS ORDERED: HUMA100I3 SC (03:20)
[2025-07-18] MEDS ORDERED: LIDO1ADH20 TD (03:36)
[2025-07-18 04:06] VITALS: BP 129/67; TEMP 98; O2SAT 96
[2025-07-18] MEDS ORDERED: METO1TAB87 PO (04:07)
[2025-07-18] MEDS ORDERED: BISA5TAB72 PO (04:07)
[2025-07-18] MEDS ORDERED: HOME MED LIST COMPLETE! XX SCH (04:15)
[2025-07-18] MEDS: ACETAMINOPHEN 500 MG TAB PO SCH (05:36)
[2025-07-18] MEDS: ENOXAPARIN 80 MG/0.8 ML SYRINGE (J1650 PER 10MG) SC SCH (05:36)
[2025-07-18 06:10] LABS: PLATELET COUNT, AUTOMATED 339 10^3/uL (150-450)
[2025-07-18 06:39] LABS: ALT/SGPT 14 U/L (7.0-40); AST/SGOT 18 U/L (<34); CALCIUM LEVEL 8.5 MG/DL (8.3-10.6); CARBON DIOXIDE LEVEL 33 MMOL/L (20-31); CHLORIDE LEVEL 100 MMOL/L (98-107); CHOLESTEROL LEVEL 77 MG/DL (<200); CHOLESTEROL RISK RATIO 2.20 (<5); CREATININE FOR GFR 0.50 MG/DL (0.55-1.30); GLOMERULAR FILTRATION RATE > 90.0 (>32); LDL CHOLESTEROL 21.1 MG/DL (<100); MAGNESIUM LEVEL 2.0 MG/DL (1.8-2.4); NON-HDL-C 42.1 MG/DL; POTASSIUM SERUM 4.0 MMOL/L (3.5-5.1); SODIUM LEVEL 141 MMOL/L (136-145); TRIGLYCERIDES LEVEL 105 MG/DL (<150)
[2025-07-18] MEDS ORDERED: MIDODRINE 5 MG TAB PO PRN (08:00)
[2025-07-18] MEDS: INSULIN LISPRO (NovoLOG) PER UNIT SC SCH ×2 (09:07→20:48)
[2025-07-18] MEDS: LIDOCAINE 5% PATCH TD SCH (09:08)
[2025-07-18 11:36] VITALS: BP 134/60; TEMP 98.6; O2SAT 96
[2025-07-18 16:00] VITALS: BP 138/68; TEMP 97.9; O2SAT 98
[2025-07-18] MEDS: METOPROLOL SUCC *XL* 12.5 MG PER 1/2 TAB PO SCH (17:39)
[2025-07-18] MEDS: DAPAGLIFLOZIN PROPANEDIOL 10 MG TABLET PO SCH (17:41)
[2025-07-18 20:10] VITALS: BP 128/69; TEMP 98.7; O2SAT 100
[2025-07-19] VITALS (8 sets, daily range): BP systolic 115–140; BP diastolic 54–77; TEMP 97.6–98.3; O2SAT 91–98
[2025-07-19 08:36] LABS: BASO # 0.1 10^3/uL (0.0-0.2); BASO % 0.6 % (0.0-1.0); EOS # 0.6 10^3/uL (0.0-0.5); EOS % 5.5 % (0.0-3.0); LYMPH # 1.9 10^3/uL (1.5-5.0); LYMPH % 18.1 % (24.0-44.0); MONO # 1.5 10^3/uL (0.0-0.8); MONO % 14.3 % (2.0-8.0); NEUTROPHILS # 6.2 10^3/uL (1.5-8.5); NEUTROPHILS % 59.2 % (36.0-66.0); PLATELET COUNT, AUTOMATED 331 10^3/uL (150-450)
[2025-07-19 09:02] LABS: CALCIUM LEVEL 8.2 MG/DL (8.3-10.6); CARBON DIOXIDE LEVEL 32.0 MMOL/L (20-31); CHLORIDE LEVEL 100.0 MMOL/L (98-107); CREATININE FOR GFR 0.57 MG/DL (0.55-1.30); GLOMERULAR FILTRATION RATE 87.4 (>32); POTASSIUM SERUM 4.2 MMOL/L (3.5-5.1); SODIUM LEVEL 140.0 MMOL/L (136-145)
[2025-07-19] MEDS: ENTRESTO 24-26 MG TABLET (SACUBITRIL/VALSARTAN) PO SCH (13:28)
[2025-07-19] MEDS: NYSTATIN 100,000 UNITS/GM TOPICAL PWD 15 GM TOP SCH (21:32)
[2025-07-19] MEDS: APIXABAN 5 MG TAB PO SCH (21:35)
[2025-07-20 04:42] VITALS: BP 141/69; TEMP 99; O2SAT 96
[2025-07-20 06:19] LABS: BASO # 0.1 10^3/uL (0.0-0.2); BASO % 0.7 % (0.0-1.0); EOS # 0.5 10^3/uL (0.0-0.5); EOS % 4.6 % (0.0-3.0); LYMPH # 1.9 10^3/uL (1.5-5.0); LYMPH % 17.8 % (24.0-44.0); MONO # 1.6 10^3/uL (0.0-0.8); MONO % 14.7 % (2.0-8.0); NEUTROPHILS # 6.5 10^3/uL (1.5-8.5); NEUTROPHILS % 59.8 % (36.0-66.0); PLATELET COUNT, AUTOMATED 364 10^3/uL (150-450)
[2025-07-20 08:06] LABS: CALCIUM LEVEL 8.2 MG/DL (8.3-10.6); CARBON DIOXIDE LEVEL 30.0 MMOL/L (20-31); CHLORIDE LEVEL 101.0 MMOL/L (98-107); CREATININE FOR GFR 0.54 MG/DL (0.55-1.30); GLOMERULAR FILTRATION RATE 88.5 (>32); MAGNESIUM LEVEL 2.1 MG/DL (1.8-2.4); PHOSPHORUS LEVEL 3.6 MG/DL (2.4-5.1); POTASSIUM SERUM 4.5 MMOL/L (3.5-5.1); SODIUM LEVEL 139.0 MMOL/L (136-145)
[2025-07-20 08:11] VITALS: BP 118/58; TEMP 97.6; O2SAT 96
[2025-07-20] MEDS ORDERED: NYSTATIN 100,000 UNITS/GM TOPICAL PWD 15 GM TOP SCH (09:00)
[2025-07-20 10:38] VITALS: BP 118/58
[2025-07-20] MEDS: SPIRONOLACTONE 12.5MG PER 1/2 TABLET PO SCH (10:38)
[2025-07-20] MEDS ORDERED: ALDA25TA2 PO (11:28)
[2025-07-20] MEDS ORDERED: ENTR1TAB PO (11:28)
[2025-07-20] MEDS ORDERED: METO1TAB32 PO (11:28)
[2025-07-20] MEDS ORDERED: NYST10006 TOP (11:28)
[2025-07-20] MEDS ORDERED: ELIQ5TAB PO (11:28)
[2025-07-20] MEDS ORDERED: FARX1TAB3 PO (11:28)
[2025-07-20 12:20] VITALS: BP 135/69; TEMP 97.7; O2SAT 92
[2025-07-26] MEDS ORDERED: APIXABAN 5 MG TAB PO SCH (21:00)
== END 2025-07-20 14:21 ==
LOC: M PCU 07-17 21:07 → INTOOBSV 07-17 21:07 → M MSPAV 07-19 17:03
PROVIDERS: ADMIT Student in an Organized Health Care Education/Training Program; ATTEND Student in an Organized Health Care Education/Training Program
DX: I51.81 Takotsubo syndrome (principal); I50.20 Unspecified systolic (congestive) heart failure; Z96.642 Presence of left artificial hip joint; I26.99 Other pulmonary embolism without acute cor pulmonale; D50.9 Iron deficiency anemia, unspecified; F05 Delirium due to known physiological condition; G93.41 Metabolic encephalopathy; L30.4 Erythema intertrigo; R13.10 Dysphagia, unspecified; G40.909 Epilepsy, unspecified, not intractable, without status epilepticus; E11.9 Type 2 diabetes mellitus without complications; I25.10 Atherosclerotic heart disease of native coronary artery without angina pectoris; Z98.61 Coronary angioplasty status; Z86.73 Personal history of transient ischemic attack (TIA), and cerebral infarction without residual deficits; Z79.01 Long term (current) use of anticoagulants; Z79.899 Other long term (current) drug therapy; Z79.4 Long term (current) use of insulin
CPT/HCPCS: 36415; 71045; 80048; 80053; 80061; 82550; 82728; 83550; 83735; 83880; 84100; 84484; 85025; 85027; 87426; 92526; 92610; 96372; 97161; 97165; 97530; G0378; G0379; J1650; J1815

== ENCOUNTER → 2025-07-25 | Outpatient (REF) | payer MEDICAID, MEDICARE, OTHER ==
[~2025-07-25] MED LIST changes: +ACET-841 PO; +ALDA25TA2 PO; +BISA5TAB72 PO; +BRIM0.2S13 OP; +DICL1PAT6 TD; +ELIQ5TAB PO; +ENOX80IN3 SC; +ENTR1TAB PO; +FARX1TAB3 PO; +HUMA100I3 SC; +INSU100V12 SQ; +LIDO1ADH20 TD; +METO1TAB32 PO; +METO1TAB87 PO; +NYST10006 TOP; +TIMO0.5S20 OP
[2025-07-25 10:28] LABS: BASO # 0.0 10^3/uL (0.0-0.2); BASO % 0.2 % (0.0-1.0); EOS # 0.0 10^3/uL (0.0-0.5); EOS % 0.2 % (0.0-3.0); LYMPH # 0.3 10^3/uL (1.5-5.0); LYMPH % 2.7 % (24.0-44.0); MONO # 0.5 10^3/uL (0.0-0.8); MONO % 3.8 % (2.0-8.0); NEUTROPHILS # 11.6 10^3/uL (1.5-8.5); NEUTROPHILS % 92.5 % (36.0-66.0); PLATELET COUNT, AUTOMATED 458 10^3/uL (150-450)
== END ==
LOC: SKLAB2 07:00
PROVIDERS: ATTEND Nurse Practitioner Women's Health
DX: R50.9 Fever, unspecified (principal); R06.02 Shortness of breath; R11.10 Vomiting, unspecified; R19.7 Diarrhea, unspecified